=== PATIENT | male | born 1970 | race Caucasian/White ===

== ENCOUNTER 2020-02-28 15:50 | Outpatient (REF) | payer BC, SELFPAY ==
[2020-02-28 18:38] LABS: Free T4 (Free Thyroxine) 1.03 ng/dL (0.71-1.85); Prostate Specific Antigen 0.25 ng/mL (<0.05-4.0); Vitamin D 25-OH Total 23.5 ng/mL (>30)
[2020-03-06 22:12] LABS: Testosterone, Free 29.4 pg/mL (35.0-155.0); Testosterone, Total 168 ng/dL (250-1100)
== END 2020-02-28 15:51 | disposition home or self-care (01) ==
LOC: HO.MANLDS 15:50
PROVIDERS: PCP Physician Assistant; Visit Provider Physician Assistant
DX: R68.82 Decreased libido (principal)
CPT/HCPCS: 82306; 84153; 84402; 84403; 84439; 84443

== ENCOUNTER 2020-04-03 11:24 | Outpatient (REF) | payer BC, SELFPAY ==
[2020-04-08 13:22] LABS: Testosterone, Free 47.2 pg/mL (35.0-155.0); Testosterone, Total 281 ng/dL (250-1100)
== END 2020-04-03 11:25 | disposition home or self-care (01) ==
LOC: HO.MANLDS 11:24
PROVIDERS: PCP Physician Assistant; Visit Provider Physician Assistant
DX: R68.82 Decreased libido (principal)
CPT/HCPCS: 84402; 84403

== ENCOUNTER 2020-04-25 09:06 | Outpatient (REF) | payer BC, SELFPAY ==
[2020-05-02 15:22] LABS: Testosterone, Free 27.2 pg/mL (35.0-155.0); Testosterone, Total 152 ng/dL (250-1100)
== END 2020-04-25 09:07 | disposition home or self-care (01) ==
LOC: HO.MANLDS 09:06
PROVIDERS: PCP Internal Medicine; Visit Provider Physician Assistant
DX: R68.82 Decreased libido (principal)
CPT/HCPCS: 84402; 84403

== ENCOUNTER → 2022-01-08 07:49 | Outpatient (REF) | payer OTHER, SELFPAY ==
--- NOTE | 2022-01-08 07:56 | CA_ITS ---
Acquisition Time: 2022-01-08 08:08:19 Total Exercise Time: 00:11:03 Test Indications: CP Medications: SEE CHART Protocol: RYLAN Max HR: 157 BPM 93% of Pred: 168 BPM Max BP: 170/030 mmHG Max Work Load: 13.4 METS Exercise stress test with exercise 11 min 3 sec of Rylan protocol, achieving 85% MPHR, with 2/10 ache in chest at baseline which increased to 3/10 with exercise, mild to mod sob, with rare PVC, with normotensive response to exercise, with borderline ST depressions inferiorly and V3-V6 suggestive of possible ischemia. In recovery his chest ache returned to 2/10 and sob resolved. Test reviewed with Dr Martinez. Will call report to ordering provider office with recommendation for a stress echocardiogram for further evaluation. Referred By: Allison Villanueva Overread By: MANUELA GRIJALVA
== END ==
LOC: HO.CARD 07:49
PROVIDERS: PCP Internal Medicine; Visit Provider Physician Assistant
DX: R07.89 Other chest pain (principal)
CPT/HCPCS: 93017

== ENCOUNTER → 2022-01-09 13:54 | Outpatient (REF) | payer OTHER, SELFPAY ==
--- NOTE | 2022-01-09 14:00 | CA_ITS ---
Transthoracic Echocardiogram Patient (Last, First, Middle): Roland Mcfadden A Gender: Male Date of : 1970 Age: 51 Procedure Date: 01/09/2022 Procedure Type: Transthoracic Echocardiogram Location: OP Height: 190.5 cm Weight: 99.79 kg BSA: 2.29 m2 Heart Rate: 69 bpm BP: 130 / 75 mmHg Sensitometrist: MILKA Montoya MD: Allison VALLEJO Ammonia Still Operator: Bipin Diez MD Symptoms: ATYPICAL CHEST PAIN. Study Quality: Fair ECG Rhythm: Sinus Conclusions: - 1. Low normal LV systolic function with grade 1 diastolic dysfunction 2. Normal cardiac valvular Dopplers 3. No gross pericardial effusion Findings Left Ventricle Normal left ventricular cavity size. There is normal left ventricular wall thickness. The left ventricular systolic function is low normal. The visually estimated ejection fraction is between 50-55%. Spectral Doppler is indicative of an impaired relaxation filling pattern. E/E prime ratio is <8, consistent with normal filling pressures. Evidence suggests grade I (mild) diastolic dysfunction. Right Ventricle Normal right ventricular cavity size and systolic function. Atria The left atrium is normal in size. Interatrial shunt cannot be excluded. The right atrium was not well visualized. Aortic Valve The aortic valve structure and function is likely normal. There is no aortic valve stenosis. There is no aortic valve regurgitation. Mitral Valve Likely normal mitral valve structure and function. There is trace mitral valve regurgitation. There is no mitral valve stenosis. Pulmonic Valve The pulmonic valve was not well visualized. Tricuspid Valve Likely normal tricuspid valve structure and function. Tricuspid regurgitation envelope is inadequate for calculation of right ventricular systolic pressure. Normal right atrial pressure. Great Vessels The aorta was not well visualized. The pulmonary artery was not well visualized. Venous The inferior vena cava is normal in size and collapses greater than 50% with inspiration. Pericardium/Pleural There is no evidence of pericardial effusion. Prior Study Comparison No prior study available for comparison. Measurements 2D Linear Measurements IVSd: 0.96 0.6-0.9/0.6-1.0 cm LVIDd: 5.50 3.9-5.3/4.2-5.9 cm LVIDd Index: 2.40 2.4-3.2/2.2-3.1 cm/m2 LVIDs: 4.02 2.0-3.6 cm LVPWd: 0.99 0.7-1.1 cm LA Diam: 3.10 2.7-3.8/3.0-4.0 cm LAIDs Index: 1.35 1.5-2.3 cm/m2 LV Mass: 256.14 67-162/88-224 g LV Mass Index: 111.85 43-95/49-115 g/m2 LVOT Diam: 2.40 3.0+(-)1.3 cm 2D Systolic Function EF 4C: 37.20 >55% EF 2C: 61.70 >55% EF BiP: 51.10 >55% Mitral Valve MV Pk E: 0.45 MV PK A: 0.54 MV Decel Time: 298.00 E/A: 0.80 E'Lateral: 5.87 E'Medial: 6.74 E/E' Med: 6.60 E/E' Lat: 7.60 PHT: 87.00 MVA PHT: 2.53 Decel Kimble: 1.49 Aortic Valve AoV Pk Bismark: 1.22 AoV Mn Bismark: 0.88 AoV VTI: 0.24 AoV Pk Grad: 6.00 Aov Mn Grad: 4.00 TRACI Cont.VTI: 3.35 LVOT LVOT Pk Bismark: 0.87 LVOT Mn Bismark: 0.63 LVOT VTI: 0.17 LVOT Pk Grad: 3.00 LVOT Mn Grad: 2.00 LVOT Diam: 2.40 LVOT Area: 4.52 Diastolic Function MV Pk E: 0.45 MV Pk A: 0.54 E/A: 0.80 E'Medial: 6.74 E/E' Med: 6.60 E' Laterial: 5.87 E/E' Lat: 7.60 Right Ventricle TAPSE (mm): 27.50 TVS' Bismark: 11.20 Tricuspid Valve RA Press: 3.00 Great Vessels Aorta Sinus of Valsalva: 3.50 2.0-3.5 cm Ao Asc: 3.60 2.1-3.4 cm Pulmonary Valve PV Pk Bismark: 0.79 Peak PV Grad: 2.00 Updated in Other Vendor System with Status of Final Bipin Diez MD electronically signed on 01/10/2022 11:52:24 AM with status of Final
== END ==
LOC: HO.CARD 13:54
PROVIDERS: Visit Provider Physician Assistant
DX: R07.89 Other chest pain (principal)
CPT/HCPCS: 93306

== ENCOUNTER → 2022-01-29 10:49 | Outpatient (REF) | payer OTHER, SELFPAY ==
--- NOTE | 2022-01-29 10:53 | CA_ITS ---
Acquisition Time: 2022-01-29 11:24:54 Total Exercise Time: 00:10:59 Test Indications: CP Medications: SEE CHART Protocol: RYLAN Max HR: 148 BPM 88% of Pred: 168 BPM Max BP: 120/048 mmHG Max Work Load: 13.3 METS Exercise stress test with exercise 10 min 59 sec of Rylan protocol, without anginal symptoms, without arrythmia, with normotensive response to exercise, with borderline EKG changes with exercise vs artifact. Echo images obtained by tech at rest and immediate post peak exercise. Definity contrast used. Test reviewed with Dr Martinez Referred By: Allison Villanueva Overread By: MANUELA GRIJALVA
== END ==
LOC: HO.CARD 10:49
PROVIDERS: PCP Internal Medicine; Visit Provider Physician Assistant
DX: R94.39 Abnormal result of other cardiovascular function study (principal)
CPT/HCPCS: 93350; Q9957

== ENCOUNTER 2022-10-28 11:26 | Outpatient (REF) | payer OTHER, SELFPAY ==
[2022-10-28 12:41] LABS: MANUAL DIFF FLAG NO
[2022-10-28 12:47] LABS: Basophils Percent Auto 0.3 % (0-2); Hematocrit 44.5 % (42.0-52.0); Hemoglobin 14.6 g/dl (14.0-18.0); Imm Gran Abs Auto 0.05 X10*3/uL (0.00-0.03); Imm Gran Pct Auto 0.4 % (0.0-0.4); Lymphocytes Percent Auto 8.2 % (20-40); Mean Corpuscular HGB Conc 32.8 g/dl (31.0-36.0); Mean Corpuscular Hemoglobin 29.3 pg (27.0-33.0); Mean Corpuscular Volume 89.4 fL (80.0-98.0); Mean Platelet Volume 10.1 fL (9.4-12.4); Monocytes Absolute Auto 0.3 X10*3/uL (0.1-1.2); Monocytes Percent Auto 2.2 % (2-11); Neutrophils Absolute Auto 10.6 x10*3/uL (2.0-8.3); Neutrophils Percent Auto 88.9 % (45-73); Platelet Count 247 X10*3/uL (160-400); Red Blood Count 4.98 X10*6/uL (4.60-5.80); Red Cell Distribution Width 12.8 % (11.0-16.0); White Blood Count 11.9 X10*3/uL (4.8-10.8)
[2022-10-28 12:54] LABS: Estimated Average Glucose 100 mg/dL; Hemoglobin A1c % 5.1 %
[2022-10-28 13:19] LABS: Alanine Aminotransferase 38 U/L (0-40); Albumin Level 4.1 g/dL (3.5-5.0); Alkaline Phosphatase 58 U/L (39-117); Anion Gap 12 (12-20); Aspartate Amino Transferase 31 U/L (5-37); Bilirubin Total 0.5 mg/dL (0.0-1.0); Blood Urea Nitrogen 18 mg/dL (9-16); C Reactive Protein < 0.10 mg/dL (< or = 0.50); Calcium 9.6 mg/dL (8.4-10.2); Carbon Dioxide 30 mmol/L (22-29); Chloride 101 mmol/L (96-108); Estimated Glomerular Filt Rate > 60; Glucose Random 155 mg/dL (60-115); Iron 61 mcg/dL (45-160); Percent Iron Saturation 21 % (15-50); Potassium 3.9 mmol/L (3.3-5.1); Sodium 139 mmol/L (135-145); Total Iron Binding Capacity 293 mcg/dL (228-428); Total Protein 7.4 g/dL (6.5-8.0); Unsaturated Iron Binding 232 ug/dL
[2022-10-28 13:24] LABS: Erythrocyte Sedimentation Rate 3 MM/HR (0-15)
[2022-10-28 13:35] LABS: Ferritin 71 ng/mL (20-250); Vitamin D 25-OH Total 46.1 ng/mL (>30)
[2022-10-28 13:47] LABS: Folate 6.7 ng/mL (> or = 4.0); Vitamin B12 1058 pg/mL (200-900)
[2022-11-01 23:09] LABS: Spotted Fever Group IgG Not Detected (Not Detected); Spotted Fever Group IgM Not Detected (Not Detected); Typhus Fever Group IgG Not Detected (Not Detected); Typhus Fever Group IgM Not Detected (Not Detected)
== END 2022-10-28 11:27 | disposition home or self-care (01) ==
LOC: HO.MANLDS 11:26
PROVIDERS: Visit Provider Physician Assistant
DX: R53.83 Other fatigue (principal); R05.9 Cough, unspecified
CPT/HCPCS: 80053; 82306; 82607; 82728; 82746; 83036; 83540; 84439; 84443; 85025; 85652; 86140; 86618; 86666; 86753; 86757

== ENCOUNTER 2022-11-04 11:17 | Outpatient (REF) | payer OTHER, SELFPAY | END 2022-11-04 11:18 | disposition home or self-care (01) | LOC: HO.MANLNP 11:17 | PROVIDERS: Visit Provider Physician Assistant | DX: J02.8 Acute pharyngitis due to other specified organisms (principal) | CPT/HCPCS: 87070 ==

== ENCOUNTER → 2023-11-03 09:30 | Outpatient (BNV) | payer OTHER, SELFPAY | PROVIDERS: Visit Provider Clinical Nurse Specialist Psychiatric/Mental Health | DX: F33.2 Major depressive disorder, recurrent severe without psychotic features (principal); F41.1 Generalized anxiety disorder; R41.840 Attention and concentration deficit; R79.89 Other specified abnormal findings of blood chemistry | CPT/HCPCS: 90792; 99213; 99214 ==

== ENCOUNTER 2023-11-19 08:02 | Outpatient (REF) | payer OTHER, SELFPAY ==
[2023-11-19 08:42] LABS: MANUAL DIFF FLAG NO
[2023-11-19 08:55] LABS: Basophils Absolute Auto 0.1 X10*3/uL (0.0-0.2); Basophils Percent Auto 0.9 % (0-2); Eosinophils Absolute Auto 0.1 X10*3/uL (0.0-0.4); Eosinophils Percent Auto 2.1 % (0-4); Hematocrit 46.8 % (42.0-52.0); Hemoglobin 16.5 g/dl (14.0-18.0); Imm Gran Abs Auto 0.02 X10*3/uL (0.00-0.03); Imm Gran Pct Auto 0.4 % (0.0-0.4); Lymphocytes Absolute Auto 2.3 X10*3/uL (1.2-4.9); Lymphocytes Percent Auto 42.2 % (20-40); Mean Corpuscular HGB Conc 35.3 g/dl (31.0-36.0); Mean Corpuscular Hemoglobin 30.5 pg (27.0-33.0); Mean Corpuscular Volume 86.5 fL (80.0-98.0); Mean Platelet Volume 9.5 fL (9.4-12.4); Monocytes Absolute Auto 0.3 X10*3/uL (0.1-1.2); Monocytes Percent Auto 6.4 % (2-11); Neutrophils Absolute Auto 2.6 x10*3/uL (2.0-8.3); Platelet Count 178 X10*3/uL (160-400); Red Blood Count 5.41 X10*6/uL (4.60-5.80); Red Cell Distribution Width 12.4 % (11.0-16.0); White Blood Count 5.4 X10*3/uL (4.8-10.8)
[2023-11-19 09:29] LABS: Alanine Aminotransferase 27 U/L (0-40); Albumin Level 4.4 g/dL (3.5-5.0); Alkaline Phosphatase 52 U/L (39-117); Anion Gap 11 (12-20); Aspartate Amino Transferase 24 U/L (5-37); Bilirubin Total 0.6 mg/dL (0.0-1.0); Blood Urea Nitrogen 14 mg/dL (9-16); C Reactive Protein < 0.04 mg/dL (< or = 0.50); Calcium 9.6 mg/dL (8.4-10.2); Carbon Dioxide 28 mmol/L (22-29); Chloride 106 mmol/L (96-108); Cholesterol 195 mg/dL (<200); Estimated Glomerular Filt Rate > 60; Glucose Fasting 105 mg/dL (60-99); HDL Cholesterol 46 mg/dL (>40); Iron 124 mcg/dL (45-160); LDL Cholesterol Calculated 130 mg/dL (<100); Percent Iron Saturation 37 % (15-50); Sodium 141 mmol/L (135-145); Total Iron Binding Capacity 331 mcg/dL (228-428); Total Protein 7.4 g/dL (6.5-8.0); Triglycerides 98 mg/dL (<150); Unsaturated Iron Binding 207 ug/dL
[2023-11-19 09:33] LABS: Erythrocyte Sedimentation Rate 2 MM/HR (0-15)
[2023-11-19 09:37] LABS: HIV AB/AG Nonreactive (Nonreactive); HIV Num 1 0.11 S/CO (0.00-0.99)
[2023-11-19 09:45] LABS: Ferritin 34 ng/mL (20-250); Free T4 (Free Thyroxine) 0.78 ng/dL (0.71-1.85); Vitamin D 25-OH Total 34.6 ng/mL (>30)
[2023-11-19 10:37] LABS: Appearance Urine Clear; Color Urine Yellow; Glucose Urine UA Negative (Negative); Leukocyte Esterase Urine Negative (Negative); Nitrite Urine Negative (Negative); Specific Gravity - Urine <= 1.005 (1.005-1.025); Urine Blood Negative (Negative); Urine Ketones Negative (Negative); Urine Protein Negative (Neg-Trace)
--- NOTE | 2023-11-19 12:20 | ECG_ITS ---
Test Reason : qtc check Blood Pressure : / mmHG Vent. Rate : 060 BPM Atrial Rate : 060 BPM P-R Int : 160 ms QRS Dur : 100 ms QT Int : 430 ms P-R-T Axes : 063 -48 076 degrees QTc Int : 430 ms Normal sinus rhythm Left axis deviation Abnormal ECG No previous ECGs available Referred By: Krystal Mas Electronically Signed By:JELENA JEFFERY MD
[2023-11-19 12:29] LABS: Estimated Average Glucose 103 mg/dL; Hemoglobin A1c % 5.2 % (<6.0)
[2023-11-19 12:53] LABS: Parathyroid Hormone Intact 30.8 pg/mL (8.7-77.1)
[2023-11-19 13:17] LABS: Rheumatoid Factor < 13.0 IU/mL (<15.0)
[2023-11-19 14:09] LABS: Cortisol Random 16.8 ug/dL
[2023-11-19 14:36] LABS: Folate 11.6 ng/mL (> or = 4.0); Vitamin B12 668 pg/mL (200-900)
[2023-11-20 10:59] LABS: Complement C3 123 mg/dL (82-185)
[2023-11-20 14:04] LABS: IgA 165 mg/dL (47-310); IgG 1554 mg/dL (600-1640); IgM 82 mg/dL (50-300)
[2023-11-20 14:12] LABS: Follicle Stimulating Hormone 4.5 mIU/mL (1.4-12.8); Lutenizing Hormone 5.7 mIU/mL (1.5-9.3); Prolactin 11.2 ng/mL (2.0-18.0)
[2023-11-20 16:54] LABS: DHEA Sulfate 50 mcg/dL (32-279)
[2023-11-21 14:58] LABS: Calcium, Ionized 5.1 mg/dL (4.7-5.5)
[2023-11-22 10:18] LABS: Sex Hormone Binding Globulin 30 nmol/L (10-50); Triiodothyronine T3 Free 3.3 pg/mL (2.3-4.2); Triiodothyronine T3 Total 100 ng/dL (76-181)
[2023-11-24 11:28] LABS: Triiodothyronine T3 Reverse 12 ng/dL (8-25)
[2023-11-25 05:04] LABS: Adrenocorticotropic Hormone 42 pg/mL (6-50)
[2023-11-25 16:18] LABS: IGF-1 (Somatomedin C) 203 ng/mL (50-317); IGF-1 Z Score (Male) 0.9 SD (-2.0 - +2.0)
[2023-11-25 22:34] LABS: Estradiol Ultra Sensitive 16 pg/mL (< OR = 29)
[2023-11-27 06:57] LABS: Dihydrotestosterone 40 ng/dL (12-65)
[2023-11-27 11:02] LABS: Anti Nuclear Antibody Screen NEGATIVE (NEGATIVE)
[2023-11-29 23:44] LABS: Testosterone, Free 57.1 pg/mL (35.0-155.0); Testosterone, Total 405 ng/dL (250-1100)
== END 2023-11-19 08:03 | disposition home or self-care (01) ==
LOC: HO.LAB 08:02
PROVIDERS: PCP Internal Medicine; Visit Provider Psychiatry & Neurology Psychiatry
DX: F33.2 Major depressive disorder, recurrent severe without psychotic features (principal); G73.3 Myasthenic syndromes in other diseases classified elsewhere; G47.33 Obstructive sleep apnea (adult) (pediatric); D84.9 Immunodeficiency, unspecified; Z13.1 Encounter for screening for diabetes mellitus
CPT/HCPCS: 36415; 80053; 80061; 81003; 82024; 82306; 82330; 82533; 82607; 82627; 82642; 82670; 82728; 82746; 82784; 83001; 83002; 83036; 83540; 83970; 84100; 84146; 84270; 84305; 84402; 84403; 84439; 84443; 84480; 84481; 84482; 85025; 85652; 86038; 86140; 86160; 86431; 87389; 93005

== ENCOUNTER → 2023-11-19 12:20 | Outpatient (BNV) | payer OTHER, SELFPAY | PROVIDERS: PCP Internal Medicine; Visit Provider Internal Medicine Cardiovascular Disease | DX: R94.31 Abnormal electrocardiogram [ECG] [EKG] (principal) | CPT/HCPCS: 93010 ==

== ENCOUNTER 2023-11-27 09:15 | Outpatient (RCR) | payer OTHER, SELFPAY ==
[2023-11-03 11:20] VITALS: BMI 27.2
[2023-11-03 11:21] VITALS: BP 120/78; PULSE 76; TEMP 36.8
--- NOTE | 2023-11-03 12:04 | PC.ADMIT ---
Patient is a 53 year old male who was referred to [facility] by his therapist d/t increased anxiety and depression sxs. Patient feeling overwhelmed with work stress and being passed up for a promotion, supporting his father who has Alzheimer's whom he recently found placement for him. Stated he had to take care of all of the details with his fathers care and his father's home. He is currently taking leave of absence from work currently d/t his mental health. Patient reports his is not supportive. Patient is alert and oriented x4. Calm and cooperative. He presents with depressed mood and anxious affect. Denied SI. He was given a copy of his safety plan if needed. Reports drinking a glass of wine a few times a year. Denied any other substance use. Medications reconciled with patient and patient's pharmacy. He reports taking medications as prescribed.
--- NOTE | 2023-11-03 12:48 | HO.PS.ADMBH ---
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 He reports no improvement yet. denies side effects; reports stressors are high work stress, his father's dementia, and some stress with who feels overwhelmed being his only support per his report. He describes increased work stress from a job he started 3 years ago,then he started getting repeated infections such as strep and thrush. His doctor told him he needed to take a JENNIFER. When he returned he found his boss had left and he says things got more stressful then. He reports his father dx with Dementia , and he has had to help him and get him settled in a facility; although he has a brother his brother is fairly absent from the situation. pt has felt overwhelmed with the caregiver role. Pt is also on cymbalta 60mg daily, adderall 20mg tid and xanax 0.5 mg QID prn anxiety/panic. He takes b complex vitamin, omega 3 supplement, Mg+ and D3. He reports his is away with her family on vacation this week. He is home with two dogs. Pt reports passive SI but no plan and no intent to harm self; denies any past SI attempt. Past Psychiatric History: outpt tx with Dr Steve Berman; has done TMS a couple yrs ago. pt reports GERD [facility] Medical History (Updated 11/03/23 @ 13:51 by Beba Álvarez APRN) GERD (gastroesophageal reflux disease) Sleep apnea Family History: pt born in [facility] and raised by bio parents; has a younger brother who lives in [place] but is distant emotionally; Father in [place] [facility]. mother . 10 yrs ago and has one step son age 21. Social History: pt grad HS nad attended college w degree in [employer], pt on JENNIFER from work currently. Substance History: pt denies Trauma History: pt denies Diagnostics Vital Signs (24Hr): Vital Signs - 24 hr 11/03/23 11:21 Temperature 98.3 F Pulse Rate 76 Blood Pressure 120/78 BMI result Body Mass Index 27.2 Meds/Allergies Meds Home Medications ?Medication ?Instructions ?Recorded ?Confirmed ?Type alprazolam 0.5 mg tablet 0.5 mg PO QID PRN Anxiety 11/03/23 11/03/23 History dextroamphetamine-amphetamine 20 1 tab PO TID PRN attention deficit 11/03/23 11/03/23 History mg tablet duloxetine 60 mg capsule,delayed 60 mg PO QAM 11/03/23 11/03/23 History release famotidine 40 mg tablet 80 mg PO BEDTIME 11/03/23 11/03/23 History lurasidone 40 mg tablet 40 mg PO QPM 11/03/23 11/03/23 History omeprazole 20 mg capsule,delayed 20 mg PO BID 11/03/23 11/03/23 History release Allergies Allergies Allergy/AdvReac Type Severity Reaction Status Date / Time No Known Allergies Allergy Verified 11/03/23 11:20 [No Known Allergies*] Mental Status Exam Mental Status Exam Patient Appearance: Well Grooomed and Appropriate Patient Orientation: Person, Place, Time and Situation Level of Consciousness: Awake, Appropriate and Alert Patient Behavior: Appropriate and Anxious Mood Description: Sad Affect Description: Sad Patient Cognition Impaired: No Ability to Follow Directions: Good Speech Pattern: Clear, Appropriate and Soft-Spoken Memory Description: Intact Hallucinations: None Delusions: Not Present Thought Process: Intact Thought Content: positive for Intact and positive for Slowed Thinking Judgement: Fair Assessment & Plan Assessment & Plan (1) Major depressive disorder, recurrent, moderate: Status: Acute Code(s): F33.1 - Major depressive disorder, recurrent, moderate (2) SHALINI (generalized anxiety disorder): Status: Acute Code(s): F41.1 - Generalized anxiety disorder Plan admit to [facility] group therapy continue medications as is consider increase in latuda discussed lithium as adjunct to antidepressant as well Patient educated on: diagnosis, medication risk/benefits and therapeutic strategies Informed Consent: understands Reason for continued partial hosp. stay Substantial Risk for: harm to self and inability to function Certification I certify that partial hospital treatment is medically necessary due to the symptoms and problems resulting from the patient's mental illness and the failure to treat the patient at the partial hospital level of care would likely result in the patient requiring inpatient psychiatric care which could not be prevented at a less intensive level of care. Time Spent With Patient Time: Total time managing care of this patient today _60__ minutes."
--- NOTE | 2023-11-05 16:37 | HO.IOP ---
Client's case has been opened and reviewed in treatment team.
--- NOTE | 2023-11-07 11:10 | PC.NURSE ---
Per PHP staff Roland is not scheduled to attend PHP today.
--- NOTE | 2023-11-14 22:44 | HO.PHPPROGNO ---
Subjective Subjective Date of Service: 11/14/23 Reason For Visit: anxiety,depression Interim History: Patient seen for follow-up. He is participating in [facility]. Patient was seen for intake last week with covering MD. At the time he was noted to have recently started on Latuda 40 mg. He was continued on Latuda at 40 mg as well as duloxetine at 30 mg BID. He reports no improvement in symptoms today and in fact he is feeling more depressed, more demoralized and functional impairment is at an all time low. I'm stuck, I'm not sure if I'm going to get any better . He denies any suicidal thoughts, but says he does question if life is worthwhile. I've tried everything, it's hard to imagine something is going to help . He has been on multiple medication trials including numerous antidepressants as well as mood stabilizers (Prozac, Zoloft, Celexa, Wellbutrin, Remeron, Effexor, Buspar, (has been on a TCA x1, cant recall) gabapentin, Lamcital, Seroquel, Zyprexa, Abilify, Risperdal, also recently trialed on Ritalin and now Adderall for augmentation along with current trtmt on Latuda, Cymbalta, Xanax. (He is unsure about Paxil, Lexapro, no MAOs, Trintillex, Viibryd, Pristiq, other newer ADs, and denies trials of lithium, cariprazine, no FGAs, or other AEDs aside from LTG and romulo. No other nootropics or stimulant trials aside from short acting MPH and AMP). His doctor was considering ADHD as a possibility, however patient denies any history of issues with attention or focus or memory until more recent years. Reports doing well in school and had been successful at work in earlier decades. He reports having a long history of depression and anxiety, usually the depression has historically been worse, although lately he is reporting feeling lately the anxiety has been bad as well...paralyzed... very ruminative, just dealing with a lot of chronic stressful situations including marital, financial and work-related stressors as well as caregiver fatigue looking after his father who is struggling with dementia. Patient himself has been dealing with significant medical problems, chronic fatigue, with repeated bouts of severe strep throat, oropharyngeal thrush, bronchitis, flare-ups occurring about 3-4 times a year since 2021. He has been treated on many rounds of prednisone and antibiotics with delayed recovery, no cause has yet been identified for the recurrent infections. He reports a history of sleep apnea, although this does not appear to have been fully worked up as he is unclear if he has obstructive or central sleep apnea and is not currently on CPAP. He shares that he has been struggling to keep up with his many medical issues and was feeling demoralized because treaters had not been able to identify a cause for his problems. He reports being given testosterone cream was on it for 6 months until his doctor said he was fine to stop it. He reports problems with cognition and memory, says he has had discussions around these concerns with his and doctor. He has not undergone any neuropsych testing, but cognitive issues definitely worsened in past 2 years and appears to be a number of factors at play (high level of day-to-day stress, chronic life stressors, treatment-resistant depression in context of medical problems (?JUANPABLO, recurrent infections possibly underlying an inflammatory process?) he also recently underwent an endoscopy and was diagnosed with GERD. Patient is agreeable to follow up with lab work next week as well as routine EKG for medication considerations. Medication Compliance: Yes Side effects from medications: No Attending Groups: Yes Review of Systems Acute medical concerns: No Mental Status Exam Mental Status Exam Narrative: Alert, oriented, in no acute distress. Calm, cooperative, engaged. No psychomotor agitation or neurovegetative retardation. Eye contact maintained. Mood depressed, affect blunted. Speech normal, soft, without latency or dysarthria. Thought process linear, coherent. Thought content related to stressors +helpelessness, transient hopelessness, questioning life being worthwhile. Denies any suicidal thoughts, denies any intention, urge or plan to harm self. Denies any aggressive ideation or HI. No paranoia or delusional content elicited. No evidence of psychosis. Insight and judgment fair. Diagnostics Vital Signs (24Hr): BMI result Body Mass Index 27.2 Assessment & Plan Assessment & Plan (1) MDD (major depressive disorder), recurrent severe, without psychosis: Status: Acute Code(s): F33.2 - Major depressive disorder, recurrent severe without psychotic features (2) SHALINI (generalized anxiety disorder): Status: Acute Code(s): F41.1 - Generalized anxiety disorder (3) Attention and concentration deficit: Status: Acute Code(s): R41.840 - Attention and concentration deficit Assessment and Plan: Memory issues/concerns as well as s/s of ADD more noticable in past decade of life rule out MCI vs pseudodementia (depression) FH: dementia on both sides of family Patient reporting history of Sleep Apnea (unclear if JUANPABLO, CSA - not on CPAP) Plan continue IOP will seek extension of treatment at IOP consider bumping up to PHP/higher LOC given worsening symptoms/presentation start modafinil 50-100 mg qam (as ancillary to antidepressant treatment of TRD hold off Adderall 5 mg TID prn (patient difficulty with compliance given multiple dosings) increase Latuda to 60 mg qd continue duloxetine 60 mg/d (split BID) continue famotidine 80 mg qhs continue omeprazole 20 mg BID reviewed lab work from 10/2022 - low total and free testosterone, other non-specific lab abnormalities will order lab work early next week - routine lab work as well as TFTs, nutritional deficiencies, will following on endocrine labs will order EKG, routine for baseline QTc Patient given ASRS to fill out and bring back on Friday Will plan consider MoCA as well. continue to monitor Patient educated on: diagnosis and medication risk/benefits Informed Consent: understands Reason for contiued partial hosp. stay Substantial Risk for: inability to function, rapid decompensation and med/psych decompensation Certification I certify that the patient needs IOP Services for a minimum of 9 hours per week of therapeutic services. I certify the patient is experiencing symptoms of such intensity that they are unable to be safely treated in a less intensive setting and would otherwise require admission to a more intensive level of care. Total time managing care of this patient today _45___ minutes. Discharge Plan Discharge Attending provider: Krystal Mas Medications: New modafinil 100 mg tablet 100 mg PO QAM Qty: 30 0RF Continued dextroamphetamine-amphetamine 20 mg tablet 1 tab PO TID PRN (Reason: attention deficit) Patient Comments: Patient reports he takes PRN famotidine 40 mg tablet 80 mg PO BEDTIME alprazolam 0.5 mg tablet 0.5 mg PO QID PRN (Reason: Anxiety) omeprazole 20 mg capsule,delayed release(DR/EC) 20 mg PO BID duloxetine 60 mg capsule,delayed release(DR/EC) 60 mg PO QAM lurasidone 40 mg tablet 40 mg PO QPM Patient Comments: Patient stated he takes 40 mg daily not 60 mg. He stated the pharmacy got the prescription wrong. Patient advised to take with at least 350 calorie snack or with dinner. Print Language: Canadian
--- NOTE | 2023-11-17 14:53 | HO.IOP ---
Pt's discharge date has been extended until 11/21/23.
--- NOTE | 2023-11-17 19:37 | HO.PHPPROGNO ---
Subjective Subjective Date of Service: 11/17/23 Reason For Visit: anxiety,depression Interim History: Patient did not tolerate increase in Latuda to 60 mg due to feeling groggy and lethargic the next day and kind of persisted throughout the day. He tried taking a little earlier with food, but this did not help. He also notes feeling more depressed, having more catastrophic thinking. Endorses thoughts of whether life is worthwhile but says these are not new thoughts, He denies any thoughts of hurting himself or others. He is relieved to return dose back to 40 mg. He is agreeable to getting lab work done in the morning. No substance use, energy is low. Denies any sick contacts. Medication Compliance: Yes Side effects from medications: Yes (as noted above) Attending Groups: Yes Review of Systems Acute medical concerns: No Mental Status Exam Mental Status Exam Narrative: Alert, oriented, in no acute distress. Calm, cooperative, engaged. No psychomotor agitation or neurovegetative retardation. Eye contact maintained. Mood depressed, affect blunted. Speech normal, soft, without latency or dysarthria. Thought process linear, coherent. Thought content related to stressors +helpelessness, transient hopelessness, questioning life being worthwhile. Denies any suicidal thoughts, denies any intention, urge or plan to harm self. Denies any aggressive ideation or HI. No paranoia or delusional content elicited. No evidence of psychosis. Insight and judgment fair. Patient Appearance: Well Grooomed and Appropriate Patient Orientation: Person, Place, Time and Situation Level of Consciousness: Awake, Appropriate and Alert Patient Behavior: Appropriate and Anxious Mood Description: Sad Affect Description: Sad Patient Cognition Impaired: No Ability to Follow Directions: Good Speech Pattern: Clear, Appropriate and Soft-Spoken Memory Description: Intact Diagnostics Vital Signs (24Hr): BMI result Body Mass Index 27.2 Assessment & Plan Assessment & Plan (1) MDD (major depressive disorder), recurrent severe, without psychosis: Status: Acute Code(s): F33.2 - Major depressive disorder, recurrent severe without psychotic features Assessment and Plan: rule out depression due to general medical condition (2) SHALINI (generalized anxiety disorder): Status: Acute Code(s): F41.1 - Generalized anxiety disorder (3) Attention and concentration deficit: Status: Acute Code(s): R41.840 - Attention and concentration deficit Assessment and Plan: Memory issues/concerns as well as s/s of ADD more noticable in past decade of life rule out neurocognitive disorder vs pseudodementia (depression) FH: dementia on both sides of family Patient reporting history of Sleep Apnea (unclear if JUANPABLO, CSA - not on CPAP) (4) Low testosterone in male: Status: Acute Code(s): R79.89 - Other specified abnormal findings of blood chemistry Plan continue IOP continue modafinil 50-100 mg qam, titrate as tolerated(as ancillary to antidepressant treatment of TRD (holding Adderall 5 mg) return dose of Latuda to 40 mg qd q meals (pt did not tolerate 60 mg dose due to persistent fatigue/exhaustion) continue duloxetine 60 mg/d (split BID) anticipate increasing dose of duloxetine to 90 mg/d once consider mementine which patient was quite interested in given complaints of cognitive dysfunction, chronic fatigue continue regular medications - omeprazole 20 mg BID, famotidine 80 mg qhs reviewed lab work from 10/2022 - low total and free testosterone, other non-specific lab abnormalities patient agrees to get lab work done - routine lab work,TFTs, endocrine, nutritional deficiencies, will order EKG, routine for baseline QTc Patient given ASRS to fill out and bring back on Friday Will plan consider MoCA as well will consider stepping up to PHP/higher LOC given worsening symptoms/presentation continue to monitor Patient educated on: diagnosis, medication risk/benefits and medical condition Informed Consent: understands Reason for contiued partial hosp. stay Substantial Risk for: inability to function, rapid decompensation and med/psych decompensation Certification I certify that the patient needs IOP Services for a minimum of 9 hours per week of therapeutic services. I certify the patient is experiencing symptoms of such intensity that they are unable to be safely treated in a less intensive setting and would otherwise require admission to a more intensive level of care. Total time managing care of this patient today ____ minutes. Discharge Plan Discharge Attending provider: Krystal Mas Medications: New memantine 7 mg capsule,sprinkle,ER 24hr 7 mg PO BEDTIME Qty: 30 0RF cholecalciferol (vitamin D3) [Vitamin D3] 125 mcg (5,000 unit) tablet 125 mcg PO DAILY Qty: 30 0RF duloxetine 30 mg capsule,delayed release(DR/EC) 30 mg PO BEDTIME Qty: 30 0RF levothyroxine 50 mcg tablet 50 mcg PO DAILY Qty: 30 0RF memantine 14 mg capsule,sprinkle,ER 24hr 14 mg PO DAILY Qty: 30 0RF Continued dextroamphetamine-amphetamine 20 mg tablet 1 tab PO TID PRN (Reason: attention deficit) Patient Comments: Patient reports he takes PRN famotidine 40 mg tablet 80 mg PO BEDTIME alprazolam 0.5 mg tablet 0.5 mg PO QID PRN (Reason: Anxiety) omeprazole 20 mg capsule,delayed release(DR/EC) 20 mg PO BID duloxetine 60 mg capsule,delayed release(DR/EC) 60 mg PO QAM lurasidone 40 mg tablet 40 mg PO QPM Patient Comments: Patient stated he takes 40 mg daily not 60 mg. He stated the pharmacy got the prescription wrong. Patient advised to take with at least 350 calorie snack or with dinner. Changed modafinil 100 mg tablet 100 - 200 mg PO QAM Qty: 30 0RF Stand Alone Forms: Patient Portal Discharge page Patient Education: Depression (DC) Print Language: Pakistani
--- NOTE | 2023-11-18 15:32 | HO.IOP ---
Pt called out of today, reported to PHP staff he is safe and will return tomorrow after he goes to get lab work. No safety concerns.
--- NOTE | 2023-11-20 23:19 | P.PNPSP_ITS ---
Subjective Subjective Date of Service: 11/20/23 Reason For Visit: anxiety,depression Interim History: Followed up with patient. He had reported feeling more depressed earlier this week, he continues to report no change. Mood is very low, physically lethargic, having a hard time with focus, today anxiety high on account of job interview he has at 2pm, feels overhwhelmed and having difficulty with making decisions today (and in general) which has made engagement in medication decisions challenging and slow, but ultimately says he is willing to try anything . Thus far he has failed a number of antidpressant and mood stabilizing medications, (could not tolerate the increase last week in Latuda due to exacerbating his fatigue and cognitive impairment). He says he has not experienced any relief from his depression and chronic fatigue in years. Upon review, he did not notice any sanchez nges when we had stopped the Adderall last week - he had been taking 20 mg up to 3 times a day which was only exacerbating his anxiety (incr HR, worry, nervousness), but was not felt to be helping with his energy, focus or mood. His prescriber had started him on the Adderall as treatment for ADHD and for his chronic fatigue. He has been taking the modafinil at 100 mg, thus far he denies any adverse effects but is not noticing any cognitive benefit thus far. He feels there is perhaps a modest bump up in energy for an hour or 2 but then dissipates. He continues to complain of difficulty with focus, feels physically drained , tired and mentally exhausted all the time . I have no stamina...it takes all the energy I have to sit in groups and then I cant do much of anything else after . He describes slow cognitive tempo, and difficulty attending to tasks that require attention or critical thinking. I have no energy, no motivation...there's not much I enjoy anymore . He denies any thoughts of harming himself but describes having , anhedonia and feelings of helplessness and profound hopelessness. I don't think this will get better . He reports significant impairments in daily funcitoning, ADLs deplete all his energy. Feels overwhelmed with how he will function at a job. Continues to struggles with sleep due, spends hours in bed with disrupted sleep, eventually sleeping for ho urs at a time. He wakes feeling unrested, and does not recover during the day. He appears exhausted, sleepy, poor complexion, with slow movements and speech, and some paucity of thought, thought processing scattered with non-specific anxieties and says he often spirals into catastrophic thinking, which underlines him. He also complains of severe sexual dysfunction/ED, low libido, denies AM erection, or ability to get aroused. He is concerned about increasing the duloxetine as he has been concerned that medications have been causing problems with ED. He was noted to have a history of low testosterone and was offered to start treatment but says this somehow fell through. He admits he has difficulty with follow up on account of the severity of his depression and chronic fatigue. We are still waiting on his lab work, but I suspect there are underlying endocrine dysfunction and possibly immunological factors that are contributing to his presentation given worsening complaints of worsening depression, treatment-resistance, and chronic fatigue. I spoke with him later in the day to update the patient on some of the lab work findings that returned. 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 He reached out to them for assistance but by the time he got things sorted it was too late, but they are giving him another chance tomorrow afternoon which he was grateful about. We agreed to review his medications and treatment planning to address these medical problems (low functioning thyroid, hypogonadism) which are likely factors contributing to his depression. Still waiting on remaining lab work. Medication Compliance: Yes Side effects from medications: No Attending Groups: Yes Review of Systems Acute medical concerns: Yes as noted below Mental Status Exam Mental Status Exam Narrative: Alert, oriented, in no acute distress. Calm, cooperative, engaged. No psychomotor agitation or neurovegetative retardation. Eye contact maintained. Mood depressed, affect blunted. Speech normal, soft, without latency or dysarthria. Thought process linear, coherent. Thought content related to stressors +helpelessness, transient hopelessness, questioning life being worthwhile. Denies any suicidal thoughts, denies any intention, urge or plan to harm self. Denies any aggressive ideation or HI. No paranoia or delusional content elicited. No evidence of psychosis. Insight and judgment fair. Diagnostics Vital Signs (24Hr): BMI result Body Mass Index 27.2 Assessment & Plan Assessment & Plan (1) MDD (major depressive disorder), recurrent severe, without psychosis: Status: Acute Code(s): F33.2 - Major depressive disorder, recurrent severe without psychotic features (2) SHALINI (generalized anxiety disorder): Status: Acute Code(s): F41.1 - Generalized anxiety disorder (3) Attention and concentration deficit: Status: Acute Code(s): R41.840 - Attention and concentration deficit (4) Hypogonadism in male: Status: Acute Code(s): E29.1 - Testicular hypofunction Plan will seek extension of treatment at IOP vs step-up to PHP/higher LOC given worsening symptoms/presentation will increase duloxetine to 90 mg/d (split BID) start mementine 7 mg qhs for cognitive dysfunction/chronic fatigue =will hold off other medication changes until after patient has completed his job interview= will likely start levothyroxine 50 mcg as augmentation strategy for treatment- resistant depression (given borderline low T4 and TSH --> ?pituitary dysfxn, pending remaining TFTs) continue modafinil 100 mg qam (as ancillary to antidepressant treatment of TRD), will titrate as tolerated to target slow cognitive tempo/chronic fatigue/depression consider Lyrica to target pre-existing anxiety and to mitigate the potential unwanted autonomic side effects (inc HR, shakiness, somatic anxiety) of a stimulant medication (modafinil) continue Latuda 40 mg qd (pt did not tolerate 60 mg dose due to exacerbation fatigue) continue regular medications - omeprazole 20 mg BID, famotidine 80 mg qhs Reviewed lab results thus far - pt with secondary hypogonadism (low testosterone, inappropriate low/norm LH and FSH indicating possible hypothamalic/pituitary disorder) complement C4 deficiency thus far (pt with history of recurrent bacterial/viral infections (strep, thrush, bronchitis) over the past 2 years - Igs panel normal, pending SON, autoimmune lab work reviewed lab work from 10/2022 - low total and free testosterone, other non- specific lab abnormalities will remaining lab findings next week - pending remaining TFTs, ACTH, IGF-1, and remaining endocrine labwork will order EKG, routine for baseline QTc Obtain MoCA, ASRS for baseline Reviewed safety plan continue to monitor Patient educated on: diagnosis, medication risk/benefits and medical condition Informed Consent: understands Reason for contiued partial hosp. stay Substantial Risk for: inability to function, rapid decompensation and med/psych decompensation Certification I certify that partial hospital treatment is medically necessary due to the symptoms and problems resulting from the patient's mental illness and the failure to treat the patient at the partial hospital level of care would likely result in the patient requiring inpatient psychiatric care which could not be prevented at a less intensive level of care. Total time managing care of this patient today __40__ minutes. Discharge Plan Discharge Attending provider: Krystal Mas Medications: New modafinil 100 mg tablet 100 mg PO QAM Qty: 30 0RF Continued dextroamphetamine-amphetamine 20 mg tablet 1 tab PO TID PRN (Reason: attention deficit) Patient Comments: Patient reports he takes PRN famotidine 40 mg tablet 80 mg PO BEDTIME alprazolam 0.5 mg tablet 0.5 mg PO QID PRN (Reason: Anxiety) omeprazole 20 mg capsule,delayed release(DR/EC) 20 mg PO BID duloxetine 60 mg capsule,delayed release(DR/EC) 60 mg PO QAM lurasidone 40 mg tablet 40 mg PO QPM Patient Comments: Patient stated he takes 40 mg daily not 60 mg. He stated the pharmacy got the prescription wrong. Patient advised to take with at least 350 calorie snack or with dinner. Print Language: Telugu
--- NOTE | 2023-11-21 23:52 | HO.PHPPROGNO ---
Subjective Subjective Date of Service: 11/21/23 Reason For Visit: anxiety,depression Interim History: Still depressed, tired, feeling anxious about his interview today. Yesterday was a disaster...had technical difficulties, scrambling to get the interview set up but it didn't work out. Got postponed until 3 today . He has been taking 100 mg modafinil, he is not noticing a huge difference although later in our discussion mentioned he seems to have a little more energy to engage, and affect has moments of brightening and less blunted. We reviewed his lab work, his thyroid function though not technically hypothyroid, does suggest his thyroid functioning suboptimally, w low/normal T4 0.78, I suggest we could start LT4 at low dose as an augmentation strategy for depression, in addition to increasing the duloxetine to 90 mg, which he was agreeable with. His TSH seems inappropriately low given lowish T4. Similarly his LH, FSH I would have also expected them to be higher if in fact his testosterone is still low (free and total T still pending). Continued complaints around mental fog, forgetfulness, slow cognitive temp. He is eager to start memantine this evening as wel previously discussed. Medication Compliance: Yes Side effects from medications: No Attending Groups: Yes Review of Systems Acute medical concerns: No Mental Status Exam Mental Status Exam Narrative: Alert, oriented, in no acute distress. Calm, cooperative, engaged. No psychomotor agitation or neurovegetative retardation. Eye contact maintained. Mood anxious, depressed, affect less blunted. Speech normal, soft, without latency or dysarthria. Thought process linear, coherent. Thought content related to stressors some helplessness, transient hopelessness, questioning life being worthwhile. Denies any suicidal thoughts, denies any intention, urge or plan to harm self. Denies any aggressive ideation or HI. No paranoia or delusional content elicited. No evidence of psychosis. Insight and judgment fair. Patient Appearance: Well Grooomed and Appropriate Patient Orientation: Person, Place, Time and Situation Level of Consciousness: Awake, Appropriate and Alert Patient Behavior: Appropriate and Anxious Mood Description: Sad Affect Description: Sad Patient Cognition Impaired: No Ability to Follow Directions: Good Speech Pattern: Clear, Appropriate and Soft-Spoken Memory Description: Intact Diagnostics Vital Signs (24Hr): BMI result Body Mass Index 27.2 Assessment & Plan Assessment & Plan (1) MDD (major depressive disorder), recurrent severe, without psychosis: Status: Acute Code(s): F33.2 - Major depressive disorder, recurrent severe without psychotic features (2) SHALINI (generalized anxiety disorder): Status: Acute Code(s): F41.1 - Generalized anxiety disorder (3) Attention and concentration deficit: Status: Acute Code(s): R41.840 - Attention and concentration deficit (4) Chronic fatigue: Status: Acute Code(s): R53.82 - Chronic fatigue, unspecified (5) Hypogonadism in male: Status: Acute Code(s): E29.1 - Testicular hypofunction Plan extension of treatment at IOP vs step-up to PHP/higher LOC given worsening symptoms/presentation increase duloxetine to 90 mg/d (split BID) start mementine 7 mg qhs for cognitive dysfunction/chronic fatigue start levothyroxine 50 mcg as augmentation strategy for treatment-resistant depression (given borderline low T4 and TSH --> ?pituitary dysfxn, pending remaining TFTs) continue modafinil 100 mg qam (as ancillary to antidepressant treatment of TRD), will titrate as tolerated to target slow cognitive tempo/chronic fatigue/depression consider Lyrica to target pre-existing anxiety and to mitigate the potential unwanted autonomic side effects (inc HR, shakiness, somatic anxiety) of a stimulant medication (modafinil) continue Latuda 40 mg qd (pt did not tolerate 60 mg dose due to exacerbation fatigue) continue regular medications - omeprazole 20 mg BID, famotidine 80 mg qhs Reviewed lab results thus far - pt with secondary hypogonadism (low testosterone, inappropriate low/norm LH and FSH indicating possible hypothalamic/pituitary dysfxn) complement C4 deficiency thus far (pt with history of recurrent bacterial/viral infections (strep, thrush, bronchitis) over the past 2 years - Igs panel normal, pending SON, autoimmune lab work reviewed lab work from 10/2022 - low total and free testosterone, other non-specific lab abnormalities will remaining lab findings next week - pending remaining TFTs, ACTH, IGF-1, and remaining endocrine labwork will order EKG, routine for baseline QTc Obtain MoCA, ASRS for baseline Reviewed safety plan continue to monitor Patient educated on: diagnosis, medication risk/benefits and medical condition Informed Consent: understands Reason for contiued partial hosp. stay Substantial Risk for: inability to function and med/psych decompensation Certification I certify that partial hospital treatment is medically necessary due to the symptoms and problems resulting from the patient's mental illness and the failure to treat the patient at the partial hospital level of care would likely result in the patient requiring inpatient psychiatric care which could not be prevented at a less intensive level of care. Total time managing care of this patient today __30__ minutes. Discharge Plan Discharge Attending provider: Krystal Mas Medications: New modafinil 100 mg tablet 100 mg PO QAM Qty: 30 0RF memantine 7 mg capsule,sprinkle,ER 24hr 7 mg PO BEDTIME Qty: 30 0RF cholecalciferol (vitamin D3) [Vitamin D3] 125 mcg (5,000 unit) tablet 125 mcg PO DAILY Qty: 30 0RF duloxetine 30 mg capsule,delayed release(DR/EC) 30 mg PO BEDTIME Qty: 30 0RF levothyroxine 50 mcg tablet 50 mcg PO DAILY Qty: 30 0RF Continued dextroamphetamine-amphetamine 20 mg tablet 1 tab PO TID PRN (Reason: attention deficit) Patient Comments: Patient reports he takes PRN famotidine 40 mg tablet 80 mg PO BEDTIME alprazolam 0.5 mg tablet 0.5 mg PO QID PRN (Reason: Anxiety) omeprazole 20 mg capsule,delayed release(DR/EC) 20 mg PO BID duloxetine 60 mg capsule,delayed release(DR/EC) 60 mg PO QAM lurasidone 40 mg tablet 40 mg PO QPM Patient Comments: Patient stated he takes 40 mg daily not 60 mg. He stated the pharmacy got the prescription wrong. Patient advised to take with at least 350 calorie snack or with dinner. Print Language: Mosotho
--- NOTE | 2023-11-27 20:49 | P.PNPSP_ITS ---
Subjective Subjective Date of Service: 11/27/23 Reason For Visit: anxiety,depression Interim History: Patient seen for follow-up, anticipating discharge at the end of program today.? Reports no acute issues or concerns. He is tolerating the increase in Cymbalta from 60 to 90 mg/day. He did not tolerate increase in Latuda to 60 mg so that remains at 40 mg daily. He thus far is tolerating start on levothyroxine as augmentation strategy for TRD. He asks to increase dose, but for now I suggest he continues on LT4 at 50 mcg daily and see how he is feeling in a few weeks. He is also tolerating modafinil for energy, cognition and augmentation for neurovegetative depression as well as memantine for cognition, fibromyalgia. Medication compliant, medications well-tolerated. Denies any adverse effects.?He still continues with low energy, depressed mood. He has found the program to be helpful and did note a modest improvement in his symptoms. He endorses ahedonia, denies any SI or thoughts of harming self or others at this time. Denies any aggressive ideation or HI. Denies any paranoia or AH or VH. He has an upcoming appointment with his provider Oriana Berman. Medication Compliance: Yes Side effects from medications: No Attending Groups: Yes Review of Systems Acute medical concerns: No Mental Status Exam Mental Status Exam Narrative: Alert, oriented, in no acute distress. Calm, cooperative, engaged. No psychomotor agitation or neurovegetative retardation. Eye contact maintained. Mood anxious, depressed, affect less blunted. Speech normal, soft, without latency or dysarthria. Thought process linear, coherent. Thought content related to stressors some helplessness, transient hopelessness, questioning life being worthwhile. Denies any suicidal thoughts, denies any intention, urge or plan to harm self. Denies any aggressive ideation or HI. No paranoia or delusional content elicited. No evidence of psychosis. Insight and judgment fair. Diagnostics Vital Signs (24Hr): BMI result Body Mass Index 27.2 Assessment & Plan Assessment & Plan (1) MDD (major depressive disorder), recurrent severe, without psychosis: Status: Acute Code(s): F33.2 - Major depressive disorder, recurrent severe without psychotic features Assessment and Plan: Treatment resistant depression - rule out depression due to general medical condition (2) HSALINI (generalized anxiety disorder): Status: Acute Code(s): F41.1 - Generalized anxiety disorder (3) Attention and concentration deficit: Status: Acute Code(s): R41.840 - Attention and concentration deficit Assessment and Plan: Memory issues/concerns as well as s/s of ADD more noticable in past decade of life rule out neurocognitive disorder vs pseudodementia (depression) FH: dementia on both sides of family Patient reporting history of Sleep Apnea (unclear if JUANPABLO, CSA - not on CPAP) (4) Low testosterone in male: Status: Acute Code(s): R79.89 - Other specified abnormal findings of blood chemistry Plan Discharge from [facility] Continue medications at current doses: duloxetine 90 mg/d (split 60/30) modafinil 100-150 mg qam as augmentation for TRD hold off Adderall to see if modafanil better addresses energy, depression levothyroxine 50 mcg/day as augmentation for TRD memantine ER 14 mg daily lurasidone 40 mg qd w meals Refills sent to pharmacy Will defer further medication management to outpatient provider *Safety plan reviewed *Discharge diagnoses, treatment course, discharge plan have been reviewed with patient (including medication regime, medication management, potential side effects) as well as treatment rationale were also revisited *Discharge paperwork signed and given to patient, copy sent for scanning to chart Certification I certify that partial hospital treatment is medically necessary due to the symptoms and problems resulting from the patient's mental illness and the failure to treat the patient at the partial hospital level of care would likely result in the patient requiring inpatient psychiatric care which could not be prevented at a less intensive level of care. Total time managing care of this patient today ____ minutes. Discharge Plan Discharge Attending provider: Krystal Mas Medications: New memantine 7 mg capsule,sprinkle,ER 24hr 7 mg PO BEDTIME Qty: 30 0RF cholecalciferol (vitamin D3) [Vitamin D3] 125 mcg (5,000 unit) tablet 125 mcg PO DAILY Qty: 30 0RF duloxetine 30 mg capsule,delayed release(DR/EC) 30 mg PO BEDTIME Qty: 30 0RF levothyroxine 50 mcg tablet 50 mcg PO DAILY Qty: 30 0RF memantine 14 mg capsule,sprinkle,ER 24hr 14 mg PO DAILY Qty: 30 0RF Continued dextroamphetamine-amphetamine 20 mg tablet 1 tab PO TID PRN (Reason: attention deficit) Patient Comments: Patient reports he takes PRN famotidine 40 mg tablet 80 mg PO BEDTIME alprazolam 0.5 mg tablet 0.5 mg PO QID PRN (Reason: Anxiety) omeprazole 20 mg capsule,delayed release(DR/EC) 20 mg PO BID duloxetine 60 mg capsule,delayed release(DR/EC) 60 mg PO QAM lurasidone 40 mg tablet 40 mg PO QPM Patient Comments: Patient stated he takes 40 mg daily not 60 mg. He stated the pharmacy got the prescription wrong. Patient advised to take with at least 350 calorie snack or with dinner. Changed modafinil 100 mg tablet 100 - 200 mg PO QAM Qty: 30 0RF Stand Alone Forms: Patient Portal Discharge page Patient Education: Depression (DC) Print Language: Danish
== END 2023-11-27 23:59 | disposition home or self-care (01) ==
LOC: HO.IOP 09:15
PROVIDERS: Visit Provider Psychiatry & Neurology Psychiatry
DX: F33.2 Major depressive disorder, recurrent severe without psychotic features (principal); F41.1 Generalized anxiety disorder; R41.840 Attention and concentration deficit; E29.1 Testicular hypofunction; Z79.899 Other long term (current) drug therapy
CPT/HCPCS: 90791; H0015; S9480

== ENCOUNTER 2025-01-17 09:00 | Outpatient (RCR) | payer OTHER, SELFPAY ==
[2024-12-22 10:37] VITALS: BMI 28.5
[2024-12-22 10:38] VITALS: BP 120/70; PULSE 68; TEMP 36.9
--- NOTE | 2024-12-22 16:26 | PC.ADMIT ---
Patient is a 54 year old male who self referred to [facility] as suggested by his former therapist as patient has a history of treatment resistant depression. Patient has attended [facility] this past October/November 2024. Patient report he taking a leave of absence from work to work on his mental health. Patient stated, Work is very supportive, I got a new job, I had to take a pay cut but it is a better environment. I work for [employer] . Patient reports decreased energy to do things for the past few weeks. Patient reports he had to take days off from work as a result. Patient did state, I like the people I work with and the work for the most part. Patient reports he feels guilty for having to taking time off from work. One of his goals of treatment at [facility] is to improve anxiety and depression sxs and to decrease ruminating on things. Patient reports stresses include the loss of his father in August 2024 who suffered with dementia. Patient also stated his new therapist ended the relationship between them as she told him that she was not a good fit for him and this was difficult for him to hear. Patient is alert and oriented x4. He is calm and cooperative. He presented with depressed mood and anxious affect. When asked about SI patient reported having passive thoughts stating he thinks, What's is the point . Patient stated, I have read about ways even though I knew that I was not going to follow through . Patient denied having any active plans or intent to kill himself. Patient was given a copy of his safety plan if needed. Patient reports his protective factors stating, I got my dogs and and I don't want to leave them . Patient reports he was doing TMS treatments however were ineffective. Patient reports he is going to be starting [place] with Spravado in the beginning of January. Patient's medications updated with patient and patient's pharmacy. He stated he told his provider that he has not started Escitalopram in addition to telling her he does not want to be on this medication. Patient never picked up this medication per pharmacy. In addition, patient reports he is not taking Trazodone anymore as he feels like a Zombie and it is too sedating the next day. Patient has not picked up this prescription per pharmacy.
--- NOTE | 2024-12-23 10:59 | P.HPPSP_ITS ---
[facility] Date of Service: 11/03/23 Chief Complaint: anxiety,depression Sources of Information: patient interviewed, chart reviewed and crisis/core team assessment reviewed HPI Narrative: The patient is a 54 yo with treatment resistant depression admitted to [facility] for treatment-resistant depression and anxiety. My psychiatrist suggested that I seemed to be stepping backwards and that I should come to [facility] again . Complains of worsening symptoms over the past 6-7 weeks which appears to coincide with his individual therapist terminating their treatment on a background of chronic depression which was particularly provoked by the deterioration his father's health and eventual passing of his father in 08/2024. She decided to stop therapy, she said there was not much else she could do for me . Patient was admittedly surprised by this decision, as he thought they were working well together and found the therapy helpful. He had started into [facility] for TMS treatment but only completed those first 2 appointments which were broken up by acute declines in his mental health. He presently anticipates starting Spravato in 2 weeks. He endorses sometimes going on google searches (to look up topics related to suicide) knowing I'm not going to do it . He cites having a safety plan with his therapist as a strong protective factor, Past Psychiatric History: Pt reports passive SI but no plan and no intent to harm self; denies any past SI attempt.outpt tx with Dr Steve Berman; has done TMS a couple yrs ago. Previous trails: multiple medication trials including numerous antidepressants as well as mood stabilizers (Prozac, Zoloft, Celexa, Wellbutrin, Remeron, Effexor, Buspar, (has been on a TCA x1, cant recall) gabapentin, Lamcital, Seroquel, Zyprexa, Abilify, Risperdal, also recently trialed on Ritalin and now Adderall for augmentation along with current trtmt on Latuda, Cymbalta, Xanax. (He is unsure about Paxil, Lexapro, no MAOs, Trintillex, Viibryd, Pristiq, other newer ADs, and denies trials of lithium, cariprazine, no FGAs, or other AEDs aside from LTG and romulo. No other nootropics or stimulant trials aside from short acting MPH and AMP). His doctor was considering ADHD as a possibility, however patient denies any history of issues with attention or focus or memory until more recent years. Reports doing well in school and had been successful at work in earlier decades. modafinil (up to 200 mg BID) in -12/2023, ADderall, various antidepressants, mood stabilizers Last [facility] admission, he was discharged on: duloxetine 90 mg/d (split 60/30) modafinil 100-150 mg qam as augmentation for TRD levothyroxine 50 mcg/day as augmentation for TRD memantine ER 14 mg daily lurasidone 40 mg qd w meals CURRENT MEDICATIONS: Lamictal 200 mg qd alprazolam 1 mg TID prn anxiety pilocarpine 10 mg BID pt reports [facility] Medical History (Updated 12/27/24 @ 10:10 by Aditi Palacios RN) Acute recurrent streptococcal tonsillitis Atypical chest pain Chronic hoarseness Restless legs Allergic rhinitis GERD (gastroesophageal reflux disease) Sleep apnea Family History: , at home with >10 yrs and one adult step son Father recently Born in [facility] and raised by bio parents; has a younger brother who lives in [place] but is distant emotionally; Social History: pt grad HS nad attended college w degree in [place], pt on JENNIFER from work currently. Substance History: pt denies Trauma History: pt denies Diagnostics Vital Signs (24Hr): BMI result Body Mass Index 28.5 Meds/Allergies Meds Home Medications ?Medication ?Instructions ?Recorded ?Confirmed ?Type alprazolam 1 mg tablet 1 mg PO TID PRN anxiety 12/0412/22/24 History lamotrigine 200 mg tablet 200 mg PO DAILY 12/22/24 History pilocarpine HCl 5 mg tablet 10 mg PO BID 12/22/2412/04 History Allergies Allergies Allergy/AdvReac Type Severity Reaction Status Date / Time No Known Allergies (No Known Allergy Verified 11/03/23 11:20 Allergies*) Mental Status Exam Mental Status Exam Patient Appearance: Well Grooomed and Appropriate Patient Orientation: Person, Place, Time and Situation Level of Consciousness: Awake, Appropriate and Alert Patient Behavior: Appropriate and Anxious Mood Description: Sad Affect Description: Sad Patient Cognition Impaired: No Ability to Follow Directions: Good Speech Pattern: Clear, Appropriate and Soft-Spoken Memory Description: Intact Hallucinations: None Delusions: Not Present Thought Process: Intact Thought Content: positive for Intact and positive for Slowed Thinking Judgement: Fair Judgement and Insight: SI without intention urgeor plan Assessment & Plan Assessment & Plan (1) MDD (major depressive disorder), recurrent severe, without psychosis: Status: Acute Code(s): F33.2 - Major depressive disorder, recurrent severe without psychotic features (2) SHALINI (generalized anxiety disorder): Status: Acute Code(s): F41.1 - Generalized anxiety disorder (3) Major depressive disorder, recurrent, moderate: Status: Acute Code(s): F33.1 - Major depressive disorder, recurrent, moderate Plan Admit to PHP VS reviewed: afebrile, BP 120/70;?68 bpm continue regular medications for now Routine lab work as indicated EKG, routine for baseline QTc for medication considerations as indicated UDS as indicated MassPat reviewed Continue to monitor as per protocol Patient educated on: diagnosis, medication risk/benefits and therapeutic strategies Informed Consent: understands Reason for continued partial hosp. stay Substantial Risk for: harm to self, inability to function and med/psych decompensation Certification I certify that partial hospital treatment is medically necessary due to the symptoms and problems resulting from the patient's mental illness and the failure to treat the patient at the partial hospital level of care would likely result in the patient requiring inpatient psychiatric care which could not be prevented at a less intensive level of care. Time Spent With Patient Time: Total time managing care of this patient today __60__ minutes.
--- NOTE | 2024-12-24 12:39 | HO.PHP ---
When leaving group 3, Roland approached the clinician regarding questions about number 5, which is do you have any unhealthy behaviors? thoughts of SI, plan or intent? Roland asked if when we are asking about a plan, if that means they have thought about ways they can do it or that they are actively collecting items to act on there thoughts. [facility] staff member informed him it was the second one and assessed if he currently has a plan. Roland said he has no plans or intent just thoughts of SI. Roland then shared his unhealthy behavior is he receives articles that talk about near experiences and the positive feeling individuals had when they realized they were about to . Roland continued to voice he has no plans or intent just did not want to trigger group members with his unhealthy behavior around reading those articles. Roland stated he is safe for the weekend and will be here Friday.
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
--- NOTE | 2024-12-30 15:50 | HO.PHP ---
This parts data writer met with Roland after lunch to assess for safety after pt reported SI, denied a plan and denied intent but hesitated before denying a plan. Pt and parts data writer spoke at length, roughly 40 minutes, Roland stated he is safe and repeated he does not have a plan or intent but has thoughts that occur that he does not want to let go of, pt did not want to speak about the thoughts currently, as to not bring them back to mind currently but reports [facility] staff is aware. Roland reported he currently is feeling increasingly overwhelmed with thoughts and feels hopeless because he does not have a therapist, stated he is still hurt that his therapist dropped him suddenly, is hurt how she did it and felt he was just beginning to make progress with her. Roland acknowledged he has a hard time with change. Stated he also feels nervous to leave [facility], knows he will have to discharge soon and worries he won't feel better. Pt was future-oriented, stated he has been calling several practices in search of a therapist (despite a referral placed to [facility] for therapy by [facility]) and states he is interested in DBT per the suggestion of his providers. Reports he called [facility] regarding DBT and [facility] for DBT and was provided with a list of other DBT locations. States he is awaiting callbacks. Roland expressed more hope after meeting with this parts data writer. Pt was open to extending his stay at [facility] if feeling increasingly overwhelmed with negative thoughts by his discharge date. [facility] will help Roland with locating/referring to DBT.
--- NOTE | 2025-01-05 09:34 | HO.PHP ---
Cryptologist met with Roland individually due to Roland requesting to speak with staff secondary to increased anxiety, feelings of being overwhelmed and concerns regarding discharge. Roland expressed concerns about his discharge date and requested an extention. Cryptologist informed Roland that lead technical writer would follow up with the team. Roland expressed that he has been having difficulty obtaining a therapist, lead technical writer offered to place a referral to [facility] which he agreed to. Cryptologist will follow up with Roland for a COOKIE for [facility] and to place a referral for therapy with [facility].
--- NOTE | 2025-01-12 16:01 | HO.PHPPROGNO ---
Subjective Subjective Date of Service: 01/11/25 Reason For Visit: anxiety,depression Interim History: Patient was started on armodafinil at last visit (with covering provider). Patient says he had since met with his outpatient provider who stopped the medication and started him directly on selegiline. She doesn't think that was the right plan for me patient said he agreed because he wasn't feeling better. Had only been 2 days since starting on jim Nuvigil. He denied having any adverse effects. Reports feeling his head is all over the place . Continues to struggle with decisions. He has been agonizing over outpatient services. He is on a few waitlists for a therapist, and keeps wavering on which therapist to see. I've just been a wreck all week . He's thinking of TMS again although says he got worse last time he did it. Says he also saw a therapist through that place but then got cut off after 8-10 weeks. Continues with low mood, lack of interest and motivation. Ongoing SI w various plans but denies any urge or intention to act on these thoughts and is able to contract for safety if thoughts worsen. Existential rumination and talks at length about watching his father decay from ALzheimers. It's more like what's the point of being happy if we aren't going to here one day . Medication Compliance: Yes Side effects from medications: No Attending Groups: Yes Review of Systems Acute medical concerns: No Medical Review of Systems: unchanged Review of Systems: Chronis issues w/ sinus inflammation, strep, thrush. Has had multiple appts w/ ENT and GI. Mental Status Exam Mental Status Exam Patient Appearance: Well Grooomed Patient Orientation: Person, Place and Time Level of Consciousness: Alert Patient Behavior: Appropriate Mood Description: Depressed and Anxious Affect Description: Appropriate Speech Pattern: Clear Hallucinations: None Delusions: Not Present Thought Process: Goal Oriented Depressive Symptoms: Diff. Making Decisions and Low Self Esteem Judgement and Insight: Insight: fair Judgment: intact Diagnostics Vital Signs (24Hr): BMI result Body Mass Index 28.5 Assessment & Plan Assessment & Plan (1) MDD (major depressive disorder), recurrent severe, without psychosis: Status: Acute Code(s): F33.2 - Major depressive disorder, recurrent severe without psychotic features (2) SHALINI (generalized anxiety disorder): Status: Acute Code(s): F41.1 - Generalized anxiety disorder (3) Attention and concentration deficit: Status: Inactive Code(s): R41.840 - Attention and concentration deficit Plan Since patient's outpatient provider was seen in interim, and treatment plan was changed, I will defer to OP provider for ongoing medication management and avoid complicating treatment by getting involved. Pt struggles w/ chronic depression, anxiety, and difficulty w/ decision making. He endorses a current passive wish but has researched ways to commit suicide. He denies having access to the means described above, any plan to obtain the nitrogen tirado, and denies any current desire or plan to harm himself. Major protective factors currently are his dogs. He is future oriented and is open to referrals to a therapist who would be a good fit for his particular issues. I also recommended that pt consider ECT for tx resistant depression, which he will consider and discuss w/ his psychiatrist. He plans to attend the intake for [facility] next wk Patient educated on: diagnosis, medication risk/benefits, therapeutic strategies and medical condition Informed Consent: understands Reason for contiued partial hosp. stay Substantial Risk for: inability to function and med/psych decompensation Certification I certify that partial hospital treatment is medically necessary due to the symptoms and problems resulting from the patient's mental illness and the failure to treat the patient at the partial hospital level of care would likely result in the patient requiring inpatient psychiatric care which could not be prevented at a less intensive level of care. Total time managing care of this patient today _30___ minutes. Discharge Plan Discharge Attending provider: Krystal Mas Medications: No Action alprazolam 1 mg tablet 1 mg PO TID PRN (Reason: anxiety) baclofen 10 mg Tablet 10 mg PO TID PRN (Reason: muscle aches) Qty: 21 0RF alprazolam 0.5 mg Tablet 1 mg PO TID PRN (Reason: severe anxiety) Qty: 0 0RF lamotrigine 100 mg Tablet 150 mg PO MoWeFrSa@0900 Qty: 30 0RF Emsam 6 mg/24 hr Patch 24 Hour 6 mg TRANSDERMAL BEDTIME Qty: 30 0RF Stand Alone Forms: Patient Portal Discharge page Print Language: [place] Citizen
--- NOTE | 2025-01-14 14:19 | HO.PHP ---
Roland and this instructional writer spoke about a discharge date in which he was hoping and is comfortable with 01/21/25. He stated he is not going back to work until Feb 04, but he has a DBT group starting within the next couple weeks along with an OP therapist that was suggested by his psychiatrist, but he is unsure when this will take place.
--- NOTE | 2025-01-18 23:44 | PM.EVENT ---
Event Note Date of Service: 01/18/25 Time Spent With Patient Time: Total time managing care of this patient today ____ minutes.
== END 2025-01-17 23:59 | disposition home or self-care (01) ==
LOC: HO.PHPA 09:00
PROVIDERS: Visit Provider Psychiatry & Neurology Psychiatry
DX: F33.2 Major depressive disorder, recurrent severe without psychotic features (principal); F41.1 Generalized anxiety disorder; R41.840 Attention and concentration deficit; Z79.899 Other long term (current) drug therapy
CPT/HCPCS: 90791; 90853

== ENCOUNTER 2025-01-19 13:52 | Inpatient (IN) | payer OTHER, SELFPAY ==
--- NOTE | 2025-01-19 | ECG_ITS ---
Test Reason : RULE OUT PROLONG QT Blood Pressure : */* mmHG Vent. Rate : 55 BPM Atrial Rate : 55 BPM P-R Int : 174 ms QRS Dur : 104 ms QT Int : 446 ms P-R-T Axes : 65 -49 69 degrees QTcB Int : 426 ms Sinus bradycardia Left axis deviation Abnormal ECG When compared with ECG of 19-Nov-2023 12:21, No significant change was found Referred By: Shayna Cade Electronically Signed By: DAVIDSON LIGHT
[2025-01-19 14:15] VITALS: BP 131/63; PULSE 84; RESP 16; TEMP 36.1; O2SAT 97; BMI 20.3
--- NOTE | 2025-01-19 14:20 | ED.GENADULT ---
HPI - General Adult General Chief complaint: Psychiatric Symptoms Stated complaint: crisis Time Seen by Provider: 01/19/25 14:46 Source: patient Mode of arrival: ambulatory Limitations: no limitations History of Present Illness ED Provider: Shayna Cade PA-C HPI narrative: Patient is a 54 year old assigned male at with a history of SHALINI, ADD, and MDD presenting to the emergency department today with depression, anxiety, and feeling suicidal. Patient states that he has had increased depression, anxiety, and feeling suicidal. Patient denies any other complaints at this time. Related Data Home Medications ?Medication ?Instructions ?Recorded ?Confirmed alprazolam 1 mg tablet 1 mg PO TID PRN anxiety 12/22/24 01/19/25 lamotrigine 200 mg tablet 200 mg PO DAILY 12/22/24 01/19/25 selegiline 6 mg/24 hr transdermal 6 mg transdermal DAILY 01/10/25 01/19/25 24 hour patch (Emsam) Allergies Allergy/AdvReac Type Severity Reaction Status Date / Time No Known Allergies (No Known Allergy Verified 01/19/25 14:21 Allergies*) Review of Systems Constitutional: Constitutional: Reports as per HPI Eyes: Eyes: Reports as per HPI ENT: Reports as per HPI Cardiovascular: Cardiovascular: Reports as per HPI Respiratory: Respiratory: Reports as per HPI Gastrointestinal: Gastrointestinal: Reports as per HPI Genitourinary: Genitourinary: Reports as per HPI Musculoskeletal: Musculoskeletal: Reports as per HPI Integumentary/Breasts: Skin/Breast: Reports as per HPI Neurologic: Reports as per HPI Psychiatric: Psychiatric: Reports as per HPI Endocrine: Endocrine: Reports as per HPI Hematologic/Lymphatic: Hematologic/Lymphatic: Reports as per HPI Allergic/Immunologic: Allergic/Immunologic: Reports as per HPI [facility] Past Medical History Attestation statement: The following information was validated with the patient. Source: old records reviewed and nursing notes reviewed Medical History Acute recurrent streptococcal tonsillitis Atypical chest pain Chronic hoarseness Restless legs Allergic rhinitis GERD (gastroesophageal reflux disease) Sleep apnea Social History Social History Household Members: Spouse and Other Household Members Other:: 2 dogs step son when not in College Comment: DC TBD Patient Tobacco Use Status: Former Tobacco user Tobacco use type: Cigarette Smoked in Last 30 Days: No Use of substances other than those prescribed or required for medical reasons: No Advance Directives: No Advance Directives Information Provided: No service: No Sexual orientation: Straight/Heterosexual Physical Exam ED Vital Signs: Vital Signs - 24 hr 01/19/25 18:12 01/20/25 05:31 01/20/25 06:00 Temperature 97.8 F 98.2 F Pulse Rate 63 72 72 Respiratory Rate 16 17 Blood Pressure 144/74 H 118/74 Pulse Oximetry 98 100 Oxygen Delivery Method Room Air Room Air 01/20/25 11:21 Temperature 97.0 F Pulse Rate 63 Respiratory Rate 12 Blood Pressure 118/70 Pulse Oximetry 100 Oxygen Delivery Method Room Air BMI result Body Mass Index 20.3 Const General: cooperative, no acute distress, alert and awake Nutritional Appearance: well nourished Orientation/consciousness: patient oriented x3 HENMT Head: Yes normal to inspection and Yes atraumatic Ears: hearing grossly normal bilaterally and external ears normal General nose exam: Normal external nose present, no nasal discharge noted and no epistaxis Face and sinus: Yes normal facial exam, No abrasion and No laceration Mouth: Normal oral and palatal mucosa present, no drooling and no muffled voice Eyes General: appearance normal, both eyes and all related structures Periorbital: periorbital findings normal Eyelids: Yes eyelids normal Conjunctivae: conjunctivae normal Pupils: Equal, round and reactive pupils present EOM: EOMs intact bilaterally Neck Neck: Yes normal visual inspection and Yes full ROM Resp Effort & Inspection: normal respiratory effort and able to speak in complete sentences Neuro General: patient oriented x3, moves all extremities and CN's II-XI intact bilaterally Cranial nerves: Yes Equal, round and reactive pupils present Cognition (Neuro): normal cognition Extrem General: Yes normal to inspection, Yes full ROM and Yes capillary refill normal Psych Appearance: grossly normal Mental Status: mental status grossly normal Affect: Sad affect present Thought content: Suicidality present Course Course Course Narrative: RME: 54-year-old male presents to the ED for depression and suicidal ideation. Patient was sent by a psychiatrist for ECT. Labs ordered. Reevaluation(s) Reevaluation #1: Time: 06:13 Date: 01/20/25 Provider: Deb Flores, DO Patient in physician observation for psychiatric evaluation.? No acute events reported overnight. No current complaints. VS stable.? Pending CARE team evaluation. Will continue to monitor. Medications Administered Generic Name Dose Route Start Last Admin Trade Name Harriett PRN Reason Stop Dose Admin Alprazolam 1 mg 01/19/25 21:00 01/20/25 08:43 Alprazolam 0.5 Mg Tablet PO Not Given TID FLAVIO Lamotrigine 200 mg 01/20/25 09:00 01/20/25 08:12 Lamotrigine 100 Mg Tablet PO 200 mg DAILY FLAVIO Administration Patient Own ( 6 mg 01/19/25 21:00 01/19/25 21:49 Selegiline [Emsam] 6 TRANSDERMA 6 mg Mg/24 Hr Patch 24 BEDTIME FLAVIO Administration Hour) Medical Decision Making Medical Decision Making [facility] Narrative: Patient is a 54 year old assigned male at with a history of SHALINI, ADD, and MDD presenting to the emergency department today with depression, anxiety, and feeling suicidal. Patient's physical exam was as noted in the physical exam portion of this note.. Patient's blood work was unremarkable. I explained my physical exam findings as well as all test results to the patient. I answered all questions asked by the patient. Patient placed in observation at 1539 pending CARE team evaluation. Patient's disposition will be determined after CARE team evaluation. Differential Diagnosis Differential Diagnoses: The differential diagnosis associated with the presentation includes Suicidal Depression Admission/Observation Consideration of admission/observation: Escalation of care including admission/observation considered Patient's disposition will be determined after CARE team evaluation. Lab Data [facility] Lab Attestation statement: I reviewed the patient's lab results. My interpretation of these results are in the MDM Rationale portion of this note. 01/19/25 14:56 01/19/25 14:56 Labs: Lab Results 01/19/25 01/19/25 Range/Units 14:56 15:03 WBC 6.6 (4.8-10.8) X10*3/uL RBC 5.19 (4.60-5.80) X10*6/uL Hgb 15.6 (14.0-18.0) g/dl Hct 44.6 (42.0-52.0) % MCV 85.9 (80.0-98.0) fL MCH 30.1 (27.0-33.0) pg MCHC 35.0 (31.0-36.0) g/dl RDW 12.4 (11.0-16.0) % Plt Count 191 (160-400) X10*3/uL MPV 9.5 (9.4-12.4) fL Immature Gran % (Auto) 0.5 H (0.0-0.4) % Neut % (Auto) 56.4 (45-73) % Lymph % (Auto) 35.3 (20-40) % [place] % (Auto) 6.2 (2-11) % Eos % (Auto) 1.1 (0-4) % Baso % (Auto) 0.5 (0-2) % Lymph # (Auto) 2.3 (1.2-4.9) X10*3/uL [place] # (Auto) 0.4 (0.1-1.2) X10*3/uL Eos # (Auto) 0.1 (0.0-0.4) X10*3/uL Baso # (Auto) 0.0 (0.0-0.2) X10*3/uL Abs Immat Gran (auto) 0.03 (0.00-0.03) X10*3/uL Absolute Neuts (auto) 3.7 (2.0-8.3) x10*3/uL Absolute Nucleated RBC 0.000 (0.0-0.012) X10*3/uL Nucleated RBC % (auto) 0.0 (0.0-0.2) /100WBC Sodium 142 (135-145) mmol/L Potassium 3.8 (3.3-5.1) mmol/L Chloride 108 (96-108) mmol/L Carbon Dioxide 26 (22-29) mmol/L Anion Gap 12 (12-20) BUN 16 (9-16) mg/dL Creatinine 1.21 (0.5-1.4) mg/dL Estim Creat Clear Calc 66.3 Estimated GFR > 60 Random Glucose 127 H (60-115) mg/dL Calcium 9.1 (8.4-10.2) mg/dL Total Bilirubin 0.5 (0.0-1.0) mg/dL AST 30 (5-37) U/L ALT 33 (0-40) U/L Alkaline Phosphatase 45 (39-117) U/L Total Protein 7.3 (6.5-8.0) g/dL Albumin 4.5 (3.5-5.0) g/dL Urine Color Yellow Urine Appearance Clear Urine pH 6.5 (5.0-9.0) Ur Specific [place] 1.010 (1.005-1.025) Urine Protein Negative (Neg-Trace) mg/dL Urine Glucose (UA) Negative (Negative) mg/dL Urine Ketones Negative (Negative) mg/dL Urine Blood Negative (Negative) Urine Nitrite Negative (Negative) Ur Leukocyte Esterase Negative (Negative) Urine Opiates Screen Not Detected (Not Detect) Ur Buprenorphine Scrn Not Detected (Not Detect) ng/mL Ur Oxycodone Screen Not Detected (Not Detect) ng/mL Urine Methadone Screen Not Detected (Not Detect) ng/mL Urine Fentanyl Screen Not Detected (Not Detect) Ur Barbiturates Screen Not Detected (Not Detect) Ur Phencyclidine Scrn Not Detected (Not Detect) Ur Amphetamines Screen Not Detected (Not Detect) U Benzodiazepines Scrn POSITIVE H (Not Detect) Urine Cocaine Screen Not Detected (Not Detect) U Marijuana (THC) Screen Not Detected (Not Detect) Ethyl Alcohol < 10 mg/dL Discharge Plan Discharge Clinical Impression: Depression Qualifiers: Depression Type: unspecified Qualified Code(s): F32.A - Depression, unspecified Patient Disposition: Admitted As Inpatient Interventions: [place]-Suicide Risk Severity Scale Last Done: 01/20/25 14:21 Admission Worksheet (ED) Last Done: 01/20/25 14:22 Discharge Date/Time: 01/20/25 14:46
[2025-01-19 15:02] LABS: MANUAL DIFF FLAG NO
[2025-01-19 15:04] LABS: Hematocrit 44.6 % (42.0-52.0); Hemoglobin 15.6 g/dl (14.0-18.0); Imm Gran Abs Auto 0.03 X10*3/uL (0.00-0.03); Imm Gran Pct Auto 0.5 % (0.0-0.4); Lymphocytes Absolute Auto 2.3 X10*3/uL (1.2-4.9); Mean Corpuscular HGB Conc 35.0 g/dl (31.0-36.0); Mean Corpuscular Hemoglobin 30.1 pg (27.0-33.0); Mean Corpuscular Volume 85.9 fL (80.0-98.0); NRBC Abs Auto 0.000 X10*3/uL (0.0-0.012); NRBC Pct Auto 0.0 /100WBC (0.0-0.2); Platelet Count 191 X10*3/uL (160-400); Red Blood Count 5.19 X10*6/uL (4.60-5.80); White Blood Count 6.6 X10*3/uL (4.8-10.8)
[2025-01-19 15:22] LABS: Appearance Urine Clear; Glucose Urine UA Negative (Negative); PH 6.5 (5.0-9.0); Specific Gravity - Urine 1.010 (1.005-1.025)
[2025-01-19 15:27] LABS: Alanine Aminotransferase 33 U/L (0-40); Albumin Level 4.5 g/dL (3.5-5.0); Alkaline Phosphatase 45 U/L (39-117); Anion Gap 12 (12-20); Aspartate Amino Transferase 30 U/L (5-37); Blood Urea Nitrogen 16 mg/dL (9-16); Calcium 9.1 mg/dL (8.4-10.2); Carbon Dioxide 26 mmol/L (22-29); Chloride 108 mmol/L (96-108); Creatinine Clr Calc Pharmacy 66.3; Estimated Glomerular Filt Rate > 60; Potassium 3.8 mmol/L (3.3-5.1); Sodium 142 mmol/L (135-145); Total Protein 7.3 g/dL (6.5-8.0)
[2025-01-19 15:35] LABS: Cannabinoid Screen Urine Not Detected (Not Detect)
[2025-01-19 18:12] VITALS: BP 144/74; PULSE 63; RESP 16; TEMP 36.6; O2SAT 98
--- OUTSIDE RECORDS SUMMARY | 2025-01-19 18:25 | XMS_ITS | Encounter Summary ---
Author Organization [facility] Address [address] [facility] [address] [place] [phone] Phone Care Team Providers Care Digital Coordinator Name Role Phone Fabiolatoyin Sanjiv Nazario DO Unavailable Anjelica Pritchard SENIOR PATROL AGENT Unavailable [phone] Roland Ibrahim MD Unavailable [phone] Leeann Montana MD Unavailable [phone] Padmaja Puentes SENIOR PATROL AGENT Unavailable Bigda, Sanjiv A DO Primary Care Provider [phone] Bigda, Sanjiv A DO Unavailable Bigda, Sanjiv A DO Unavailable Bigda, Sanjiv A DO Primary Care Provider [phone] Encounter Details Date Type Department Care Team (Late st Contact Info) Description 11/12/2019 Procedure Pass [facility], [address] [address] Social History Tobacco Use Types Packs/Day Years Used Date Smoking Tobacco: Former Cigarettes Q uit: 2000 Smokeless Tobacco: Never Alcohol Use Standard Drinks/Week Comments Not Currently 0 (1 standard drink = 0.6 oz pur e alcohol) Sex and Gender Information Value Date Recorded Sex Assigned at Male 05/12/2017 9:38 AM EST Legal Sex Male 9:36 PM EDT Gender Identity Male 05/12/2017 9:38 AM EST Sexual Orientation Straight 05/12/2017 9: 38 AM EST documented as of this encounter Plan of Treatment Not on file documented as of this encounter Visit Diagnoses Not on filedocumented in this encounter Additional Health Concerns Infection Onset Date Last Indicated Resolved Time CoV-Presumed 07/07/2020 07/07/2020 07/27/2020 1:24 AM EDT CoV-Risk 05/10/2023 05/10/2023 05/21/2023 1:22 AM EST documented as of this encounter Care Teams Digital Coordinator Relationship Specialty Start Date End Date Sanjiv Del Real DO [address] [place] [id number] PCP - General Internal Medicine 04/20/17 10/06/24 Sanjiv Del Real DO [address] [place] [address] PCP - General Internal Medicine 10/07/24 Sanjiv Del Real DO [address] [place] [address] Historical LMR Provider 02/22/17 05/12/21 Anjelica Pritchard NP [address] [place] [phone] [email or web address] Historical LMR Provider 02/22/17 2 Roland Ibrahim MD [address] [place] [phone] Historical LMR Provider 02/22/17 05/12/21 Leeann Montana MD [address] [place] [address] Orthoped[facility] Medicine, [place] [address] Historical LMR Provider 02/22/17 Padmaja Puentes NP [address] [place] [phone] Historical LMR Provider 02/22/17 2 Sanjiv Del Real DO [address] [place] [address] Insurance Assigned Provider 09/05/18 11/11/20 Sanjiv Del Real DO [address] [place] [address] Insurance Assigned Provider 05/10/24 01/08/25 documented as of this encounter Additional Source Comments The information contained in this document represents components of the legal health record. It is not the complete legal health record.[facility]
--- OUTSIDE RECORDS SUMMARY | 2025-01-19 18:25 | XMS_ITS | Clinical Summary ---
Author Organization [facility] Address [address] [address] [place] [address] Phone Care Team Providers Care Rocket Assembly Operator Name Role Phone Sanjiv Del Real Primary Care Provider [phone] Allergies No known active allergies Medications zinc 50 mg Tab tablet Take 50 mg by mouth daily. Active cholecalciferol (VITAMIN D3) 3,000 unit tablet Take 3,000 Units by mouth daily. Active calcium carbonate (CALCIUM 600 ORAL) Take by mouth. Activ e ALPRAZolam (XANAX) 0.5 MG tablet Active dextroamphetami ne-amphetamine (ADDERALL) 20 mg Tab tablet Take 20 mg by mouth 2 (two) times a day. 1 Active magnesium oxide 250 mg (150 mg elemental) Tab Take 250 mg by mouth daily. Active DULoxetine (CYMBALTA) 20 MG capsule 60 mg. Active nystatin (MYCOSTATIN) 100,000 units/mL suspension TAKE 5 ML BY MOUTH FOUR TIMES A DAY DIRECTED FOR 14 DAYS Active omeprazole (PRILOSEC) 40 MG capsule TAKE ONE CAPSULE BY MOUTH EVERY DAY BEFORE MEALS 4 Active terbinafine HCL (LAMISIL) 250 mg tablet TAKE 1 TABLET BY MOUTH ONCE DAILY FOR 42 DAYS 4 Active fluconazole (DIFLUCAN) 100 MG tabletIndicatio ns:Thrush Take 2 tabs by mouth on day 1 of treatment; take 1 tab by mouth on days 2-14 of treatment 15 tablet 4 Active Active Problems Problem Noted Date Diagnosed Date Thrush 07/11/2023 Assessment & Plan (07/11/2023 12:02 PM EST): Pt does have a thick white coating of his tongue at today's visit. Reviewed testing showing Yen albicans susceptible to fluconazole. We will try a longer course of treatment with a loading dose (to take 200mg by mouth on day one of treatment and then 100mg by mouth daily for days 2-14 of treatment). I wonder if his continued use of an intranasal steroid may be a contributing factor and I have asked him to discontinue this medication for the time being. If symptoms do not respond to fluconazole, then I think there could an alternative etiology at play such as Sjogren's syndrome. Dry mouth 07/11/2023 Assessment & Plan (07/11/2023 12:02 PM EST): Please see treatment plan above for treatment. I think that pt's stress level is also a contributing factor to his symptoms and discussed methods for stress reduction including talk therapy and acupuncture. Chronic cough 06/20/2023 Assessment & Plan (07/02/2023 8:45 AM EST): Patient presenting with relatively sporadic cough which is difficult to actually label his chronic cough. He really has no other clear respiratory symptoms. I do feel that a good majority of his symptoms are being driven or at least exacerbated by his underlying stress anxiety and mental health issues. I do feel that he probably does have a component of post nasal drip and he has reported on and off nasal congestion and sinus tenderness. There is also a possibility that he has underlying reflux disease and it appears that he has been taking omeprazole 40 mg p.o. daily but not clear that he is following an antireflux diet or lifestyle changes and he is not sure that this is providing any benefit. He does describe what I think the ENT did find which was laryngeal pharyngeal reflux however this finding can be seen in patients with coughing and posterior pharyngeal irritation from a multitude of causes. 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 He has not been cultured when he is feeling well. 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 Discussed that this is common in adults and that a viral upper respiratory tract infection with sore throat is often confused with beta hemolytic strep in carriers. If he is not a carrier, consider ordering sensitivities with any strep cultures in the future. Pt may follow-up with ID as needed. Encouraged to keep upcoming appointments with pulmonology and cardiology for chest pain work-up. Chest pain 02/20/2022 Assessment & Plan (02/20/2022 6:19 PM EDT): Patient has history of chest pain for a long time now. He had a regular ETT followed by echo stress which was negative. Patient continues to have chest pain. At this point we discussed the role of nuclear stress test versus angiogram. I told him most likely the stress echo has ruled out presence of coronary artery disease with high accuracy. She continues to have chest pain he is wondering what else we can do we decided to go ahead and do a nuclear stress test. I discussed role of angiography and possible risks from this angiography and he would like to avoid it now Dyslipidemia (high LDL; low HDL) 02/20/2022 Assessment & Plan (02/20/2022 6:20 PM EDT): LDL is elevated at 111. He should be on a low-cholesterol diet and he should repeat his lipid in 3 months with Malaise and fatigue 02/20/2022 Impaired fasting glucose 12/11/2021 Assessment & Plan (12/11/2021 10:32 AM EDT): Fasting glucose 113 mg/dL I do not have any other glucose levels because he mostly gets lab work done at [facility] so I am going to obtain a basic metabolic panel for both electrolytes and glucose levels and I will obtain hemoglobin A1c. Restless legs 11/16/2021 Chronic fatigue 08/28/2021 Assessment & Plan (02/20/2022 6:21 PM EDT): Has history of chronic fatigue his PCP is working with him and found low cortisol. I will defer this problem for the time being to the PCP he does not have any cardiomyopathy EF is normal and he has no valvular heart disease Assessment & Plan (12/11/2021 10:31 AM EDT): I did not find any etiology for fatigue other than low cortisol levels which I think is because he woke up at 5 AM and had the lab work close to 3 hours later. He does not have hypoglycemia in fact his glucose is elevated does not have any electrolyte abnormalities or hypotension. I will repeat the cortisol level he needs to get it done sooner to his waking. Again he must be done fasting. Assessment & Plan (08/28/2021 8:56 AM EDT): Checking for endocrine etiologies of fatigue. He should do the lab work again fasting first thing in the morning. Low testosterone in male 01/12/2021 Assessment & Plan (12/11/2021 10:31 AM EDT): Testosterone levels in the normal reference range LH increasing he does not require testosterone no further work-up. Assessment & Plan (08/28/2021 8:56 AM EDT): He is off testosterone states that he feels more or less fine other than the fatigue I do not think that he needs testosterone but I would like to check the bioavailable level again in 3 months time just to make sure that he is doing well and also luteinizing hormone. Assessment & Plan (05/23/2021 10:22 AM EST): The patient is on AndroGel 40 mg but the bioavailable testosterone is above the reference range. Furthermore he has not had any benefits with the use of testosterone. His libido is about the same. He does have morning erections he does not have erectile dysfunction. And testosterone is not a therapy for erectile dysfunction in any case. If he continues to feel fatigue is not because of lack of testosterone. At this point I asked him to decrease the AndroGel to 20 mg. Initially I plan for him to just repeat the lab work again in 3 months. But he feels that he will try AndroGel 20 mg for 6 weeks and if he feels fine that he will just stop at 6 weeks and if he is feeling well he will hold off AndroGel altogether and repeat lab work prior to the follow-up visit in 3 months. That is fine as long as he feels okay. Of course then I would like to know what his luteinizing level is and what the bioavailable testosterone levels are. Assessment & Plan (02/20/2021 12:51 PM EDT): Bioavailable testosterone is over 2 times the upper limit of normal on 60 mg of testosterone. Please decrease to 40 mg and repeat levels in 3 months time. Remember to do the lab work fasting. Assessment & Plan (01/12/2021 12:14 PM EDT): This is a patient that apparently was found to have low testosterone levels. It is unclear what his free testosterone levels were. He was placed on testosterone therapy but again it is unclear if he had endocrine work-up to determine the etiology of hypogonadism. Based on what I determine and what is indicated in the HPI is that he was not on any medications that would result in hypogonadism. He did not have an MRI of the pituitary gland to determine if he had pituitary tumors. It is unclear if gonadotropin levels were deficient. So it is difficult to establish a diagnosis of hypogonadism all to determine the etiology of hypogonadism once the patient has been placed on testosterone. If any work-up was done it was not sent to me with the consultation request. So at this point what I would like to do is check testosterone levels gonadotropin levels and prolactin level. He is taking Abilify that can result in either low or elevated prolactin levels. Technically it does not cause hypogonadism but if the prolactin level is high enough it could potentially result in hypogonadism. At this point I am not sure how to proceed in terms of management because he is using 3 packets of 4 packets of AndroGel and again this also does not make much sense. This is a high quantity of testosterone. Unclear why he has not been switched over to IM testosterone therapy. I will also check lipid panel, CBC, PSA levels. HLA B27 (HLA B27 positive) 05/21/2019 Assessment & Plan (05/22/2019 10:37 AM EST): I have spent several minutes with Roland explaining the meaning of positive HLA-B27 antigen. Although it is present in about 7-9% of general population it is frequently associated with ankylosing spondylitis versus Safia's syndrome and less likely psoriatic arthritis. I did not find Roland based on his history, exam today and available lab and x- rays that we personally reviewed together with signs and symptoms suggestive for ankylosing spondylitis at this time. Although his symptoms started in his 20s with the muscle spasm he did not suffer from inflammatory lower back pain, he did not have ocular, GI or infections. His symptoms are worsening particularly over the last year rather than as in majority of patients with ankylosing spondylitis symptoms develop well before 4th decade of life. His labs are entirely normal. X-rays do not show features suggestive of ankylosing spondylitis. His exam is negative for findings consistent with ankylosing spondylitis: Normal occiput to wall distance, normal check expansion , normal lower back extensibility in modified Ramiro's test. He has increased chin to chest distance and mildly increased finger to floor distance that are suggestive of degenerative arthritis rather than ankylosing spondylitis. I have reassured Roland that I am not finding signs of ankylosing spondylitis at this time however I cannot promise that he will not develop less frequently associated systemic rheumatic disease(s) such as Safia's syndrome or psoriatic arthritis versus other undifferentiated spondyloarthropathy at some point in the future. Best way to reduce/avoid development of any of those is to continue gentle, regular exercise routine, avoid sick contacts and treat any illnesses promptly, keep up-to-date with age-appropriate screenings and preventive strategies, avoid falls and injuries. Chronic neck pain 05/21/2019 Assessment & Plan (05/22/2019 10:40 AM EST): Proper posture and neck support during night sleep. Ergonomic alignment of his work desk and home project tools/equipment. Warm packs versus warm shower prior to gentle, regular ROM, stretching and muscle strengthening exercises. Consider formal chiropractic versus PT utilizing gentle massage, traction and therapeutic ultrasound with iontophoresis and/ or acupuncture. Chronic midline low back pain without sciatica 0 05/21/2019 Assessment & Plan (05/22/2019 10:42 AM EST): Gentle, regular core muscle strengthening exercises after warm pack or warm shower. Keep body weight in ideal range for his height. Avoid falls, injuries, stooping, bending, heavy lifting and sudden turns. Joint protection, energy conservation. He may benefit from topical cream such as Arnica, Biofreeze, Aspercreme versus medicated patches such as salonpas, icy hot patch 2-3 times daily and if necessary at bedtime x 3 weeks. Pain of both hip joints 05/21/2019 Assessment & Plan (05/22/2019 10:23 AM EST): Joint protection, energy conservation techniques and the gentle, regular exercise routine as educated by PT. Continue gentle, regular yoga particularly if interested in warm yoga type. Warm pool therapy would be of additional benefit. If pain localized within the soft tissues easily accessible from outside use topical cream such as Arnica, Biofreeze, Aspercreme versus medicated patches such as salonpas, icy hot patch 2-3 times daily and if necessary at bedtime x 3 weeks. Recurrent major depressive disorder, in partial remission 05/21/2019 Assessment & Plan (05/22/2019 10:19 AM EST): Continue current medication regimen combined with regular relaxation/meditation, positive imagery and if needed personal psychotherapy. Keep regular engagement in hobbies/favorite activities. Obstructive sleep apnea syndrome 12/22/2018 Anxiety 12/22/2018 Family History Medical History Relation Comments No Known Problems Father Alzheimer's disease Mother Relation Status Comments Father Alive Mother Social History Tobacco Use Types Packs/Day Years Used Date Smoking Tobacco: Former Cigarettes Q uit: 2000 Smokeless Tobacco: Never Tobacco Cessation:Counseling Given: Not Answered Alcohol Use Standard Drinks/Week Comments Not Currently 0 (1 standard drink = 0.6 oz pur e alcohol) Education Answer Date Recorded Are you interested in more education? Not on gustavo e 08/30/2022 Are you concerned about learning? Not on file 08/30/2022 No 08/30/2022 No 08/30/2022 Digital Access Answer Date Recorded No 09/28/2022 No 09/28/2022 Reliable internet access at home? Not on file 09/28/2022 Device with a working camera? Not on file Sex and Gender Information Value Date Recorded Sex Assigned at Male 05/12/2017 9:38 AM EST Legal Sex Male 9:36 PM EDT Gender Identity Male 05/12/2017 9:38 AM EST Sexual Orientation Straight 05/12/2017 9: 38 AM EST Last Filed Vital Signs Vital Sign Reading Time Taken Comments Blood Pressure 126/60 07/11/2023 11:21 AM EST Pulse 90 07/11/2023 11:21 AM EST Temperature 37.1 C (98.8 F) 06/25/2023 2:00 PM EST Respiratory Rate 18 05/10/2023 10:4 9 AM EST Oxygen Saturation 98% 07/11/2023 11: 21 AM EST Inhaled Oxygen Concentration - - Weight 100.3 kg (221 lb 3.2 oz) 024 11:21 AM EST Height 190.5 cm (6' 3 ) 06/20/2023 10:1 0 AM EST Body Mass Index 27.65 06/20/2023 10:10 AM EST Plan of Treatment Health Maintenance Due Date Last Done Comments Adult Td,Tdap Booster 1969 DEPRESSION SCREENING 1981 SMOKING Hx and SMOKELESS TOBACCO SCREENING 1982 HEPATITIS C SCREENING 1987 HIV ONE-TIME SCREENING (18-65 YEARS) 1987 COLOGUARD 2014 COLONOSCOPY 2014 COLORECTAL CANCER SCREENING 2014 FIT TEST 2014 FOBT 2014 SIGMOIDOSCOPY 2014 VIRTUAL COLONOSCOPY 2014 PNEUMOCOCCAL VACCINES (50+ years) (1 of 1 - PCV) 2019 ZOSTER VACCINES (1 of 2) 2019 SCREENING FOR DIABETES 11/27/2024 11/27/2021 INFLUENZA VACCINE (#1) 2024 03/05/2022 COVID-19 VACCINE ( season) 2025 04/06/2022, 04/20/2021, 09/26/2020, Additional history exists LIPID PANEL 08/21/2026 08/21/2021, 01/16/2021 HEPATITIS A VACCINES Aged Out No long er eligible based on patient's age to complete this topic HIB VACCINES Aged Out No longer eligi ble based on patient's age to complete this topic MENINGOCOCCAL VACCINES (ACWY) Aged Out No longer eligible based on patient's age to complete this topic MENINGOCOCCAL VACCINES (B) Aged Out N o longer eligible based on patient's age to complete this topic Medical Devices Not on file Procedures Procedure Name Priority Date/Time Associated Diagnosis Comments LIPID PANEL Routine 08/21/2021 7:41 AM EDT Low testosterone in male from Last 3 Months or Most Recently Relevant to Health Maintenance Results * Lipid panel (08/21/2021 7:41 AM EDT) HDL 47 mg/dL [facility] Comment: Interpretation <40 mg/dL: Low HDL cholesterol (major risk factor for CHD) Greater than or equal to 60 mg/dL: High HDL cholesterol ( negative risk factor for CHD) HDL - cholesterol is affected by a number of factors, e.g. smoking, excerise, hormones, sex and age. CHOLESTEROL 182 0 - 240 mg/dL [facility] TRIGLYCERIDES 119 30 - 160 mg/dL [facility] LDL 111 50 - 129 mg/dL [facility] Comment: LDL levels in terms of risk for coronary heart disease: <100 mg/dL: Optimal 100-129 mg/dL: Near or above optimal 130-159 mg/dL: Borderline high 160-189 mg/dL: High >190 mg/dL: Very High CARDIAC RISK RATIO 3.9 3.4 - 5.0 [facility] Blood 08/21/2021 7:41 AM EDT 08/21/2021 7:47 AM EDT us Geremias Dan DO LAB BLOOD ORDERABLES Final Resul t [address] [id number] from Last 3 Months or Most Recently Relevant to Health Maintenance Insurance [employer] Care Teams Rocket Assembly Operator Relationship Specialty Start Date End Date Sanjiv Del Real DO [address] [place] [address] [email or web address] PCP - General Internal Medicine 10/07/24 Additional Source Comments The information contained in this document represents components of the legal health record. It is not the complete legal health record.[facility]
--- OUTSIDE RECORDS SUMMARY | 2025-01-19 18:25 | XMS_ITS | Encounter Summary ---
Author Organization [facility] Address [address] [facility] [address] [place] [phone] Phone Care Team Providers Care Washing Machine Operator Name Role Phone Gt, Sanjiv Lange Primary Care Provider [phone] Bigda, Sanjiv Nazario DO Unavailable Bigda, Sanjiv A DO Primary Care Provider [phone] Encounter Details Date Type Department Care Team (Late st Contact Info) Description 12/24/2023 Procedure Pass [facility] Endoscopy Admitting Dept Virtual Department [address] [place] [address] Social History Tobacco Use Types Packs/Day Years [...] Diagnoses Not on filedocumented in this encounter Care Teams Washing Machine Operator Relationship Specialty Start Date End Date Sanjiv Del Real DO [email or web address] PCP - General Internal Medicine 04/20/17 10/06/24 Sanjiv Del Real DO [address] [place] [address] [email or web address] PCP - General Internal Medicine 10/07/24 Sanjiv Del Real DO [address] [place] [address] [email or web address] Insurance Assigned Provider 05/10/24 01/08/25 documented as of this encounter Additional Source Comments The information contained in this document represents components of the legal health record. It is not the complete legal health record.[facility]
--- OUTSIDE RECORDS SUMMARY | 2025-01-19 18:25 | XMS_ITS | Encounter Summary ---
Author Organization [facility] Address [address] [place] [address] [place] [address] Phone Care Team Providers Care Objective C Developer Name Role Phone Gt Sanjiv Lange DO Unavailable Anjelica Pritchard KIER PLEATER Unavailable [phone] Roland Ibrahim MD Unavailable [phone] Leeann Montana MD Unavailable [phone] Padmaja Puentes KIER PLEATER Unavailable Bigda, Sanjiv A DO Primary Care Provider [phone] Bigda, Sanjiv A DO Unavailable Bigda, Sanjiv A DO Unavailable Bigda, Sanjiv A DO Primary Care Provider [phone] Reason for Referral * MRI/CAT Scan - Closed Specialty Diagnoses / Procedures Referred By Contmelecio t Referred To Contact Radiology Diagnoses Benign neoplasm of bone and articular cartilage, unspecified Osteochondroma Procedures MRI Knee (Left) Allison Villanueva PA Phone: tel: fax: [address] Phone: tel:[phone] Referral ID Status Reason Start Date Expiration Date Visits Re quested Visits Authorized [id number] Closed 11/12/2019 11/11/2020 1 1 Encounter Details Date Type Department Care Team (Latest Contact Info) Description 11/12/2019 Transcribe Orders Virtual Department [address] [place] [address] Allison Villanueva PA [address] [place] [place] [address] [place] [address] Benign neoplasm of bone and articular cartilage, unspecified (Primary Dx); Osteochondroma Social History Tobacco Use Types Packs/Day Years Used Date Smoking Tobacco: Former Cigarettes Q uit: 1999 Smokeless Tobacco: Never Alcohol Use Standard Drinks/Week [...] on file documented as of this encounter Results * MRI KNEE WITHOUT CONTRAST (LEFT) (11/27/2019 7:24 AM EDT) Anatomical Region Laterality Modality Knee Left Magnetic Resonan ce 11/27/2019 8:48 AM EDT Impressions 11/27/2019 8:59 AM EDT Probable small tear involving the central attachment region of the posterior horn of the medial meniscus. Small joint effusion. No evidence of malignant degeneration or soft tissue mass associated with the femoral exostosis. Slightly suboptimal definition of the proximal insertion point of the ACL which could be correlated with any clinical findings of partial tearing. No other significant ligamentous pathology apparent. POS - [id number] Narrative 11/27/2019 8:59 AM EDT TECHNIQUE: Exam performed on a 1.5 Cayla high-field MRI scanner. Axial proton density with fat suppression, coronal proton density with fat suppression, sagittal T1, oblique sagittal proton density and proton density with fat suppression parallel to the plane of the ACL sequences were obtained. FINDINGS: Comparison is made with the radiographic study of 11/11/2019. There is prominent grade 2 signal in the posterior horn of the medial meniscus, particularly in its peripheral extent, with a probable small curvilinear tear seen along the dorsal aspect of the horn near the central insertion point. Lateral meniscus and anterior horn of the medial meniscus are intact. Posterior cruciate ligament is intact. There is slightly suboptimal definition of the proximal ACL insertion point on the femur but the remainder of the ligament is intact as are the MCL and lateral collateral ligamentous complex. Popliteus, infrapatellar, and visualized portions of the distal quadriceps tendons are intact. There is a small joint effusion containing a few plicae in the suprapatellar bursa with fluid also seen along the margins of the tibiofibular articulation. No focal osteochondral defect or significant abnormality of skeletal marrow signal noted. No soft tissue mass seen along the exostosis arising from the lateral diametaphyseal junction of the femur. No large cartilaginous cap apparent. No soft tissue mass noted. Procedure Note Hardeep Gonsalez MD - 11/27/2019 TECHNIQUE: Exam performed on a 1.5 Cayla high-field MRI scanner. Axialproton density with fat suppression, coronal proton density with fatsuppression, sagittal T1, oblique sagittal proton density and protondensity with fat suppression parallel to the plane of the ACL sequenceswere obtained. FINDINGS: Comparison is made with the radiographic study of 11/11/2019. There is prominent grade 2 signal in the posterior horn of the medialmeniscus, particularly in its peripheral extent, with a probable smallcurvilinear tear seen along the dorsal aspect of the horn near the centralinsertion point. Lateral meniscus and anterior horn of the medial meniscusare intact. Posterior cruciate ligament is intact. There is slightly suboptimaldefinition of the proximal ACL insertion point on the femur but theremainder of the ligament is intact as are the MCL and lateral collateralligamentous complex. Popliteus, infrapatellar, and visualized portions ofthe distal quadriceps tendons are intact. There is a small joint effusion containing a few plicae in thesuprapatellar bursa with fluid also seen along the margins of thetibiofibular articulation. No focal osteochondral defect or significantabnormality of skeletal marrow signal noted. No soft tissue mass seenalong the exostosis arising from the lateral diametaphyseal junction ofthe femur. No large cartilaginous cap apparent. No soft tissue massnoted. IMPRESSION: Probable small tear involving the central attachment region of theposterior horn of the medial meniscus. Small joint effusion. No evidenceof malignant degeneration or soft tissue mass associated with the femoralexostosis. Slightly suboptimal definition of the proximal insertion point of the ACLwhich could be correlated with any clinical findings of partial tearing.No other significant ligamentous pathology apparent. POS - [id number] Allison VALLEJO IMG MR EXTREMITY Final Resu lt documented in this encounter Visit Diagnoses Diagnosis Benign neoplasm of bone and articular cartilage, unspecified- Primary Osteochondroma Benign neoplasm of bone and articular cartilage, unspecified Osteochondroma documented in this encounter Additional Health Concerns Infection Onset Date Last Indicated Resolved Time CoV-Presumed 07/07/2020 07/07/2020 07/27/2020 1:24 AM EDT CoV-Risk 05/10/2023 05/10/2023 05/21/2023 1:22 AM EST documented as of this encounter Care Teams Objective C Developer Relationship Specialty Start Date End Date Sanjiv Del Real DO [address] [place] [phone] PCP - General Internal Medicine 04/20/17 10/06/24 Sanjiv Del Real DO [address] [place] [address] PCP - General Internal Medicine 10/07/24 Sanjiv Del Real DO [address] [place] [address] Historical LMR Provider 02/22/17 05/12/21 Anjelica Pritchard NP [address] [place] [address] [email or web address] Historical LMR Provider 02/22/17 2 Roland Ibrahim MD 22 [facility] [address] [place] [address] Historical LMR Provider 02/22/17 05/12/21 Leeann Montana MD [address] [place] [address] Orth[facility] Medicine, [place] [address] Historical LMR Provider 02/22/17 Padmaja Puentes NP [address] [place] [address] Historical LMR Provider 02/22/17 2 Sanjiv Del Real DO [address] [place] [address] Insurance Assigned Provider 09/05/18 11/11/20 Sanjiv Del Real DO [address] [place] [address] Insurance Assigned Provider 05/10/24 01/08/25 documented as of this encounter Additional Source Comments The information contained in this document represents components of the legal health record. It is not the complete legal health record.[facility]
--- OUTSIDE RECORDS SUMMARY | 2025-01-19 18:25 | XMS_ITS | Encounter Summary ---
Author Organization [facility] Address [address] [place] [address] Phone Care Team Providers Care Truck Driver Rubbish Collector Name Role Phone Gt, Sanjiv Lange DO Primary Care Provider [phone] Bigda, Sanjiv A DO Unavailable Bigda, Sanjiv A DO Primary Care Provider [phone] Encounter Details Date Type Department Care Team (Latest Contact Info) Description 10/16/2022 Transcribe Orders Virtual Department [address] [place] [address] Allison Villanueva PA 6 [facility] [place] [address] [place] [address] Bronchitis, not specified as acute or chronic (Primary Dx) Social History Tobacco Use Types Packs/Day Years [...] documented as of this encounter Results * XR CHEST PA AND LATERAL 2 VIEWS (10/16/2022 12:05 PM EDT) Anatomical Region Laterality Modality Chest Computed Radiogr aphy 10/16/2022 7:49 PM EDT Impressions 10/16/2022 7:49 PM EDT No acute findings. Narrative 10/16/2022 7:49 PM EDT XR CHEST PA AND LATERAL 2 VIEWS COMPARISON: July 21, 2020 FINDINGS: Lungs: No pneumonia or pulmonary edema. Pleura: No pleural effusion. No pneumothorax Heart/Mediastinum: Heart size normal. Bones/Soft Tissues: No acute finding Procedure Note Easton Khan MD, SID - 10/16/2022 XR CHEST PA AND LATERAL 2 VIEWS COMPARISON: July 21, 2020 FINDINGS: Lungs: No pneumonia or pulmonary edema. Pleura: No pleural effusion. No pneumothorax Heart/Mediastinum: Heart size normal. Bones/Soft Tissues: No acute finding IMPRESSION: No acute findings. Allison VALLEJO IMG XR CHEST Final Resul t documented in this encounter Visit Diagnoses Diagnosis Bronchitis, not specified as acute or chronic- Primary Bronchitis, not specified as acute or chronic documented in this encounter Additional Health Concerns Infection Onset Date Last Indicated Resolved Time CoV-Risk 05/10/2023 05/10/2023 05/21/2023 1:22 AM EST documented as of this encounter Care Teams Truck Driver Rubbish Collector Relationship Specialty Start Date End Date Sanjiv Del Real DO PCP - General Internal Medicine 04/20/17 10/06/24 Sanjiv Del Real DO [address] [place] [address] [email or web address] PCP - General Internal Medicine 10/07/24 Sanjiv Del Real DO [address] [place] [address] Insurance Assigned Provider 05/10/24 01/08/25 documented as of this encounter Additional Source Comments The information contained in this document represents components of the legal health record. It is not the complete legal health record.[facility]
--- OUTSIDE RECORDS SUMMARY | 2025-01-19 18:25 | XMS_ITS | Encounter Summary ---
Author Organization [facility] Address [address] [place] [address] Phone Care Team Providers Care Improvement Auditor Name Role Phone Sanjiv Del Real DO Unavailable Anjelica Pritchard AIRPLANE PILOT CHIEF Unavailable [phone] Roland Ibrahim MD Unavailable [phone] Leeann Montana MD Unavailable [phone] Padmaja Puentes AIRPLANE PILOT CHIEF Unavailable Bigda, Sanjiv A DO Primary Care Provider [phone] Bigda, Sanjiv A DO Unavailable Bigda, Sanjiv A DO Unavailable Bigda, Sanjiv A DO Primary Care Provider [phone] Reason for Referral * Physical Therapy (Elective) - Closed Specialty Diagnoses / Procedures Referred By Adela monzon Referred To Contact Physical Therapy Diagnoses Encounter for rehabilitation Low Back Pain Procedures Evaluate & Treat Anne Singh PA-C Phone: tel: fax: [address] [address] Phone: tel: Referral ID Status Reason Start Date Expiration Date Visits Re quested Visits Authorized [id number] Closed 12/22/2018 05/04/2019 16 16 Encounter Details Date Type Department Care Team (Latest Contact Info) Description 12/23/2018 Transcribe Orders [facility] [address] [place] [address] Anne Singh, MEMO [address]. [address] [place] [address] Encounter for rehabilitation (Primary Dx) Social History Tobacco Use Types Packs/Day Years Used Date Smoking Tobacco: Former Smokeless Tobacco: Never Sex and Gender Information Value Date Recorded Sex Assigned at Male 05/12/2017 9:38 AM EST Legal Sex Male 9:36 PM EDT Gender Identity Male 05/12/2017 9:38 AM EST Sexual Orientation Straight 05/12/2017 9: 38 AM EST documented as of this encounter Plan of Treatment Not on file documented as of this encounter Procedures Procedure Name Priority Date/Time Associated Diagnosis Comments AMB REFERRAL TO [facility] Routine 01/21/2019 12:49 PM EDT Encounter for rehabilitation documented in this encounter Results * Ambulatory referral to [facility] Physical Therapy (01/21/2019 12:49 PM EDT) August Francisco [facility] AMB [facility] REFERRALS Final Resu lt documented in this encounter Visit Diagnoses Diagnosis Encounter for rehabilitation- Primary documented in this encounter Additional Health Concerns Infection Onset Date Last Indicated Resolved Time CoV-Presumed 07/07/2020 07/07/2020 07/27/2020 1:24 AM EDT CoV-Risk 05/10/2023 05/10/2023 05/21/2023 1:22 AM EST documented as of this encounter Care Teams Improvement Auditor Relationship Specialty Start Date End Date Sanjiv Del Real DO [address] [place] [address] [email or web address] PCP - General Internal Medicine 04/20/17 10/06/24 Sanjiv Del Real DO [address] [place] [address] PCP - General Internal Medicine 10/07/24 Sanjiv Del Real DO [address] [place] [address] Historical LMR Provider 02/22/17 05/12/21 Anjelica Pritchard, AIRPLANE PILOT CHIEF [address] [place] [address] [email or web address] Historical LMR Provider 02/22/17 2 Roland Ibrahim MD [address] [place] [address], [address] [place] [address] Historical LMR Provider 02/22/17 05/12/21 Leeann Montana MD [address] [place] [address] Orth[facility] Sports Medicine, [place] [address] Historical LMR Provider 02/22/17 Padmaja Puentes NP [address] [place] [address] Historical LMR Provider 02/22/17 2 Sanjiv Del Real DO [address] [place] [address] Insurance Assigned Provider 09/05/18 11/11/20 Sanjiv Del Real DO [address] [place] [address] Insurance Assigned Provider 05/10/24 01/08/25 documented as of this encounter Additional Source Comments The information contained in this document represents components of the legal health record. It is not the complete legal health record.[facility]
--- OUTSIDE RECORDS SUMMARY | 2025-01-19 18:25 | XMS_ITS | Encounter Summary ---
Author Organization [facility] Address [address] [place] [address] [place] [address] Phone Care Team Providers Care Endoscope Technician Name Role Phone Sanjiv Del Real DO Unavailable Anjelica Pritchard BEAD FILLER Unavailable [phone] Roland Ibrahim MD Unavailable [phone] Leeann Montana MD Unavailable [phone] Padmaja Puentes BEAD FILLER Unavailable Bigda, Sanjiv A DO Primary Care Provider [phone] Bigda, Sanjiv A DO Unavailable Bigda, Sanjiv A DO Unavailable Bigda, Sanjiv A DO Primary Care Provider [phone] Encounter Details Date Type Department Care Team (Latest Contact Info) Description 03/19/2019 Transcribe Orders Virtual Department [address] [place] [address] Anne Singh PA-C [address] [place] [address] Right hip pain (Primary Dx); Pain in left hip; Low back pain, unspecified back pain laterality, unspecified chronicity, unspecified whether sciatica present Social History Tobacco Use Types Packs/Day Years [...] as of this encounter Results * XR LUMBOSACRAL SPINE 4 OR MORE VIEWS (03/20/2019 8:39 AM EST) Anatomical Region Laterality Modality L-spine Radiographic Laura ging 03/20/2019 8:46 AM EST Impressions 03/20/2019 8:48 AM EST Minimal multilevel degenerative changes. POS - [id number] Narrative 03/20/2019 8:48 AM EST EXAM: XR LUMBOSACRAL SPINE 4 OR MORE VIEWS COMPARISON: Lumbar spine MRI on December 31, 2011 History: Pain. FINDINGS: Lumbar lordosis is maintained. No significant subluxations. Vertebral body heights and disc spaces are preserved. Tiny marginal osteophytes at multiple levels. Bilateral sacroiliac joints are congruent. Procedure Note Naomi Guzman MD - 03/20/2019 EXAM: XR LUMBOSACRAL SPINE 4 OR MORE VIEWS COMPARISON: Lumbar spine MRI on December 31, 2011 History: Pain. FINDINGS: Lumbar lordosis is maintained. No significant subluxations. Vertebral bodyheights and disc spaces are preserved. Tiny marginal osteophytes atmultiple levels. Bilateral sacroiliac joints are congruent. IMPRESSION: Minimal multilevel degenerative changes. POS - [id number] August Francisco [facility] IMG XR SPINE Final Result * XR HIP 2 VW RIGHT PLUS PELVIS (03/20/2019 8:37 AM EST) Anatomical Region Laterality Modality Hip Right Radiographic Laura ging 03/20/2019 8:48 AM EST Impressions 03/20/2019 8:53 AM EST Minimal early degenerative changes in bilateral hip joints. POS - [id number] Narrative 03/20/2019 8:53 AM EST EXAMS: 1. XR HIP 2 VW RIGHT PLUS PELVIS 2. XR HIP 2-3 VW LEFT COMPARISON: Pelvis radiograph on January 03, 2017 History: Pain for months. No trauma. FINDINGS: Osseous structures of the pelvis are intact, with no fracture seen. Femoral heads are properly seated within the acetabulum. Previously seen impingement configuration of both hips appears less prominent on today's images. Minimal sclerotic changes of bilateral acetabula. Sacroiliac joints are symmetric. Overlying soft tissues are unremarkable. Procedure Note Naomi Guzman MD - 03/20/2019 EXAMS: 1. XR HIP 2 VW RIGHT PLUS PELVIS 2. XR HIP 2-3 VW LEFT COMPARISON: Pelvis radiograph on January 03, 2017 History: Pain for months. No trauma. FINDINGS: Osseous structures of the pelvis are intact, with no fracture seen.Femoral heads are properly seated within the acetabulum. Previously seenimpingement configuration of both hips appears less prominent on today'simages. Minimal sclerotic changes of bilateral acetabula. Sacroiliacjoints are symmetric. Overlying soft tissues are unremarkable. IMPRESSION: Minimal early degenerative changes in bilateral hip joints. POS - [id number] Anne Francisco [facility] IMG XR PELVIS Final Result * XR HIP 2-3 VW LEFT (03/20/2019 8:36 AM EST) Anatomical Region Laterality Modality Hip Left Radiographic Laura ging 03/20/2019 8:48 AM EST Impressions 03/20/2019 8:53 AM EST Minimal early degenerative changes in bilateral hip joints. POS - [id number] Narrative 03/20/2019 8:53 AM EST EXAMS: 1. XR HIP 2 VW RIGHT PLUS PELVIS 2. XR HIP 2-3 VW LEFT COMPARISON: Pelvis radiograph on January 03, 2017 History: Pain for months. No trauma. FINDINGS: Osseous structures of the pelvis are intact, with no fracture seen. Femoral heads are properly seated within the acetabulum. Previously seen impingement configuration of both hips appears less prominent on today's images. Minimal sclerotic changes of bilateral acetabula. Sacroiliac joints are symmetric. Overlying soft tissues are unremarkable. Procedure Note Naomi Guzman MD - 03/20/2019 EXAMS: 1. XR HIP 2 VW RIGHT PLUS PELVIS 2. XR HIP 2-3 VW LEFT COMPARISON: Pelvis radiograph on January 03, 2017 History: Pain for months. No trauma. FINDINGS: Osseous structures of the pelvis are intact, with no fracture seen.Femoral heads are properly seated within the acetabulum. Previously seenimpingement configuration of both hips appears less prominent on today'simages. Minimal sclerotic changes of bilateral acetabula. Sacroiliacjoints are symmetric. Overlying soft tissues are unremarkable. IMPRESSION: Minimal early degenerative changes in bilateral hip joints. POS - [id number] August Francisco [facility] IMG XR PELVIS Final Result documented in this encounter Visit Diagnoses Diagnosis Right hip pain- Primary Pain in joint, pelvic region and thigh Pain in left hip Low back pain, unspecified back pain laterality, unspecified chronicity, unspecified whether sciatica present Pain in left hip Right hip pain Pain in joint, pelvic region and thigh Low back pain, unspecified back pain laterality, unspecified chronicity, unspecified whether sciatica present documented in this encounter Additional Health Concerns Infection Onset Date Last Indicated Resolved Time CoV-Presumed 07/07/2020 07/07/2020 07/27/2020 1:24 AM EDT CoV-Risk 05/10/2023 05/10/2023 05/21/2023 1:22 AM EST documented as of this encounter Care Teams Endoscope Technician Relationship Specialty Start Date End Date Sanjiv Del Real DO [address] [place] [address] [email or web address] PCP - General Internal Medicine 04/20/17 10/06/24 Sanjiv Del Real DO [address] [place] [address] PCP - General Internal Medicine 10/07/24 Sanjiv Del Real DO [address] [place] [address] Historical LMR Provider 02/22/17 05/12/21 Anjelica Pritchard NP [address] [place] [address] [email or web address] Historical LMR Provider 02/22/17 2 Roland Ibrahim MD [address] [place] [address] Historical LMR Provider 02/22/17 05/12/21 Leeann Montana MD [address] [place] [address] Orth[facility] Medicine, [place] [address] Historical LMR Provider 02/22/17 Padmaja Puentes NP [address] [place] [address] Historical LMR Provider 02/22/17 2 Sanjiv Del Real DO [address] [place] [address] Insurance Assigned Provider 09/05/18 11/11/20 Sanjiv Del Real DO [address] [place] [address] [email or web address] Insurance Assigned Provider 05/10/24 01/08/25 documented as of this encounter Additional Source Comments The information contained in this document represents components of the legal health record. It is not the complete legal health record.[facility]
--- OUTSIDE RECORDS SUMMARY | 2025-01-19 18:25 | XMS_ITS | Encounter Summary ---
Author Organization [facility] Address [address] [facility] [address] [place] [address] Phone Care Team Providers Care Batch Operator Name Role Phone FabiolaSanjiv deal Primary Care Provider [phone] Bigda, Sanjiv Nazario DO Unavailable Bigda, Sanjiv A DO Primary Care Provider [phone] Reason for Referral * Consultation (Routine) - Closed Specialty Diagnoses / Procedures Referred By Contmelecio t Referred To Contact Pulmonary Disease Allison Villanueva PA [address] [place] [address] Phone: tel: fax: [facility] [address] [place] [address] Phone: tel: Referral ID Status Reason Start Date Expiration Date Visits Re quested Visits Authorized [id number] Closed 05/14/2023 05/14/2024 1 1 Encounter Details Date Type Department Care Team (Late st Contact Info) Description 05/14/2023 Transcribe Orders CD Pulmonary, Allergy and Critical Care Medicine [address] [place] [address] Allison Villanueva PA [address] [place] [address] Social History Tobacco Use Types Packs/Day Years [...] as of this encounter Plan of Treatment Scheduled Referrals Name Type Priority Associated Diagnoses Order Schedule [facility] Pul[facility]ology Outpatient Referral Routine Ordered: 05/14/2023 documented as of this encounter Visit Diagnoses Not on filedocumented in this encounter Additional Health Concerns Infection Onset Date Last Indicated Resolved Time CoV-Risk 05/10/2023 05/10/2023 05/21/2023 1:22 AM EST documented as of this encounter Care Teams Batch Operator Relationship Specialty Start Date End Date Sanjiv Del Real DO PCP - General Internal Medicine 04/20/17 10/06/24 Sanjiv Del Real DO [address] [place] [address] PCP - General Internal Medicine 10/07/24 Sanjiv Del Real DO [address] [place] [address] Insurance Assigned Provider 05/10/24 01/08/25 documented as of this encounter Additional Source Comments The information contained in this document represents components of the legal health record. It is not the complete legal health record.[facility]
--- OUTSIDE RECORDS SUMMARY | 2025-01-19 18:25 | XMS_ITS | Encounter Summary ---
Author Organization [facility] Address [facility] Scal[facility] [address] [place] [address] Phone Care Team Providers Care Guest Experience Representative Name Role Phone Sanjiv Del Real DO Unavailable Anjelica Pritchard SWITCH TECHNICIAN Unavailable [phone] Roland Ibrahim MD Unavailable [phone] Leeann Montana MD Unavailable [phone] Padmaja Puentes SWITCH TECHNICIAN Unavailable Bigda, Sanjiv A DO Primary Care Provider [phone] Bigda, Sanjiv A DO Unavailable Bigda, Sanjiv A DO Unavailable Bigda, Sanjiv A DO Primary Care Provider [phone] Encounter Details Date Type Department Care Team (Latest Contact Info) Description 03/19/2019 Transcribe Orders [facility] [address] [place] [address] Anne Singh PA-C [address] [place], [place] [id number] Low back pain, unspecified back pain laterality, unspecified chronicity, unspecified whether sciatica present (Primary Dx) Social History Tobacco Use Types [...] documented as of this encounter Results * C-Reactive Protein (03/19/2019 9:53 AM EST) C REACTIVE PROTEIN <0.3 0.0 - 4.0 mg/L [facility] Blood 03/19/2019 9:53 AM EST 03/19/2019 10:[address] [facility] LAB BLOOD ORDERABLES Final R esult [address] [address] * Sedimentation rate (ESR) (03/19/2019 9:53 AM EST) Pathologist [facility] ESR 1 0 - 15 mm/h [facility] Blood 03/19/2019 9:53 AM EST 03/19/2019 10:[address] [facility] LAB BLOOD ORDERABLES Final R esult Performing Organization Address City/[facility]/ZIP Co de Phone Number [address] [address] * Antinuclear antibody (SON) (03/19/2019 9:53 AM EST) SON SCREEN ON HEP 2 Negative Negative [facility] Blood 03/19/2019 9:53 AM EST 03/19/2019 10:[address] [facility] LAB BLOOD ORDERABLES Final R esult Performing Organization Address City/[facility]/ZIP Co de Phone Number [address] [address] * Rheumatoid factor (03/19/2019 9:53 AM EST) RHEUMATOID FACTOR <10.0 0.0 - 14.0 IU/ml [facility] Blood 03/19/2019 9:53 AM EST 03/19/2019 10:16 AM EST Result [facility] LAB BLOOD ORDERABLES Final R esult Performing Organization Address [facility] de Phone Number [address] [address] * Lyme screen with reflex to Western blot, blood (03/19/2019 9:53 AM EST) Lyme AB IgG Negative Negative [facility] Lyme AB IgM Negative Negative [facility] Blood 03/19/2019 9:53 AM EST 03/19/2019 10:16 AM EST Result [facility] LAB [facility]OD [facility]AB[facility] Performing Organization Address [facility] de Phone Number [address] [address] * HLA-B27, BLOOD (03/19/2019 9:53 AM EST) HLA-B27 RESULT Positive Not Applicable [facility] DPT OF LAB MED AND PAT+ INTERPRETATION SEE NOTE [facility] DPT OF LAB MED AND PAT+ Comment: (NOTE) HLA-B27 antigen was detected. Approximately 8% of the normal population carries the HLA-B27 antigen. HLA-B27 is present in approximately 89% of patients with ankylosing spondylitis, 79% of patients with Safia's syndrome and 42% of patients with juvenile rheumatoid arthritis. However, lacking other data, it is not diagnostic for these disorders. This test does not differentiate B27 alleles. i.e. B*27:05, B*27:06, etc. ADDITIONAL INFORMATION Method: Flow Cytometry Blood 03/19/2019 9:53 AM EST 03/19/2019 10:16 AM EST [facility] LAB BLOOD ORDERABLES Final R esult [facility] DPT OF LAB MED AND PAT+ [address] [place] [address] documented in this encounter Visit Diagnoses Diagnosis Low back pain, unspecified back pain laterality, unspecified chronicity, unspecified whether sciatica present- Primary documented in this encounter Additional Health Concerns Infection Onset Date Last Indicated Resolved Time CoV-Presumed 07/07/2020 07/07/2020 07/27/2020 1:24 AM EDT CoV-Risk 05/10/2023 05/10/2023 05/21/2023 1:22 AM EST documented as of this encounter Care Teams Guest Experience Representative Relationship Specialty Start Date End Date Sanjiv Del Real DO [address] [place] [address] PCP - General Internal Medicine 04/20/17 10/06/24 Sanjiv Del Real DO [address] [place] [address] PCP - General Internal Medicine 10/07/24 Sanjiv Del Real DO [address] [place] [address] Historical LMR Provider 02/22/17 05/12/21 Anjelica Pritchard NP [address] [place] [address] [email or web address] Historical LMR Provider 02/22/17 2 Roland Ibrahim MD [address] [place] [address], [address] [place] [address] Historical LMR Provider 02/22/17 05/12/21 Leeann Montana MD [address] [place] [address] [facility], [place] [address] Historical LMR Provider 02/22/17 Padmaja Puentes NP [address] [place] [address] Historical LMR Provider 02/22/17 2 Sanjiv Del Real DO [address] [place] [address] Insurance Assigned Provider 09/05/18 11/11/20 Sanjiv Del Real DO [address] [place] [address] Insurance Assigned Provider 05/10/24 01/08/25 documented as of this encounter Additional Source Comments The information contained in this document represents components of the legal health record. It is not the complete legal health record.[facility]
--- OUTSIDE RECORDS SUMMARY | 2025-01-19 18:25 | XMS_ITS | Encounter Summary ---
Author Organization [facility] Address [address] [facility] [address] [place] [address] Phone Care Team Providers Care Retail Office Associate Name Role Phone Gt, Sanjiv Laneg Primary Care Provider [phone] Bigda, Sanjiv A DO Unavailable Bigda, Sanjiv A DO Primary Care Provider [phone] Encounter Details Date Type Department Care Team (Late st Contact Info) Description 12/23/2023 Procedure Pass [facility]oscopy Admitting Dept Virtual Department [address] [place] [address] Social History Tobacco Use Types Packs/Day Years [...] on filedocumented in this encounter Care Teams Retail Office Associate Relationship Specialty Start Date End Date Sanjiv Del Real DO PCP - General Internal Medicine 04/20/17 10/06/24 Sanjiv Del Real DO [address] [place] [address] PCP - General Internal Medicine 10/07/24 Sanjiv Del Real DO [address] [place] [address] Insurance Assigned Provider 05/10/24 01/08/25 documented as of this encounter Additional Source Comments The information contained in this document represents components of the legal health record. It is not the complete legal health record.[facility]
--- OUTSIDE RECORDS SUMMARY | 2025-01-19 18:25 | XMS_ITS | Encounter Summary ---
Author Organization [facility] Address [address] [place] [address] Phone Care Team Providers Care Morals Squad Police Officer Name Role Phone FabiolaSanjiv deal Primary Care Provider [phone] Bigda, Sanjiv Lange DO Unavailable Bigda, Sanjiv A DO Primary Care Provider [phone] Encounter Details Date Type Department Care Team (Late st Contact Info) Description 06/20/2023 Procedure Pass [facility], Ct Scan - [address] [address] Social History Tobacco Use Types Packs/Day Years [...] on filedocumented in this encounter Care Teams Morals Squad Police Officer Relationship Specialty Start Date End Date Sanjiv Del Real DO [email or web address] PCP - General Internal Medicine 04/20/17 10/06/24 Sanjiv Del Real DO [address] [place] [address] [email or web address] PCP - General Internal Medicine 10/07/24 Sanjiv Del Real DO [address] [place] [address] [email or web address] Insurance Assigned Provider 05/10/24 01/08/25 documented as of this encounter Additional Source Comments The information contained in this document represents components of the legal health record. It is not the complete legal health record.[facility]
--- OUTSIDE RECORDS SUMMARY | 2025-01-19 18:25 | XMS_ITS | Encounter Summary ---
Author Organization [facility] Address [address] [place] [address] Phone Care Team Providers Care Appellate Law Clerk Name Role Phone FabiolaSanjiv deal Primary Care Provider [phone] Bigda, Sanjiv A DO Unavailable Bigda, Sanjiv A DO Primary Care Provider Encounter Details Date Type Department Care Team (Late st Contact Info) Description 11/04/2022 Procedure Pass [facility], Ct Scan - [address] [address] Social History Tobacco Use Types Packs/Day Years [...] documented as of this encounter Care Teams Appellate Law Clerk Relationship Specialty Start Date End Date Sanjiv Del Real DO PCP - General Internal Medicine 04/20/17 10/06/24 Sanjiv Del Real DO [address] [place] [address] [email or web address] PCP - General Internal Medicine 10/07/24 Sanjiv Del Real DO [address] [place] [address] Insurance Assigned Provider 05/10/24 01/08/25 documented as of this encounter Additional Source Comments The information contained in this document represents components of the legal health record. It is not the complete legal health record.[facility]
--- OUTSIDE RECORDS SUMMARY | 2025-01-19 18:25 | XMS_ITS | Encounter Summary ---
Author Organization [facility] Address [address] [facility] [address] [place] [address] Phone Care Team Providers Care Pediatric Occupational Therapist Name Role Phone Sanjiv Del Real DO Unavailable Anjelica Pritchard COAL MILL OPERATOR Unavailable [phone] Roland Ibrahim MD Unavailable [phone] Leeann Montana MD Unavailable [phone] Padmaja Puentes COAL MILL OPERATOR Unavailable Bigda, Sanjiv A DO Primary Care Provider [phone] Bigda, Sanjiv A DO Unavailable Bigda, Sanjiv A DO Unavailable Bigda, Sanjiv A DO Primary Care Provider [phone] Encounter Details Date Type Department Care Team (Late st Contact Info) Description 07/21/2020 Transcribe Orders Virtual Department [address] [place] [address] Allison Villanueva PA 6 [facility] [place] [address] [place] [address] Cough (Primary Dx) Social History Tobacco Use Types [...] XR CHEST PA AND LATERAL 2 VIEWS (07/21/2020 1:19 PM EDT) Anatomical Region Laterality Modality Chest Computed Radiogr aphy 07/21/2020 1:28 PM EDT Impressions 07/21/2020 1:30 PM EDT Bilateral parenchymal opacities indicative of pneumonia. Narrative 07/21/2020 1:30 PM EDT HISTORY: As above. COMPARISON: 04/20/2007. CHEST RADIOGRAPH FINDINGS: Views: 2. Lines/Tubes: None. Heart and Mediastinum: Normal. Lungs: Bilateral patchy parenchymal opacities throughout the mid and lower lung zones left greater the right. No masses. No pleural effusions. Bones: Stable mild mid thoracic endplate spurring and mild anterior wedging. Soft Tissues: No acute findings. Procedure Note Edwar Manley MD - 07/21/2020 HISTORY: As above. COMPARISON: 04/20/2007. CHEST RADIOGRAPH FINDINGS: Views: 2. Lines/Tubes: None. Heart and Mediastinum: Normal. Lungs: Bilateral patchy parenchymal opacities throughout the mid andlower lung zones left greater the right. No masses. No pleuraleffusions. Bones: Stable mild mid thoracic endplate spurring and mild anteriorwedging. Soft Tissues: No acute findings. IMPRESSION: Bilateral parenchymal opacities indicative of pneumonia. Allison VALLEJO IMG XR CHEST Final Resul t documented in this encounter Visit Diagnoses Diagnosis Cough- Primary Cough documented in this encounter Additional Health Concerns Infection Onset Date Last Indicated Resolved Time CoV-Presumed 07/07/2020 07/07/2020 07/27/2020 1:24 AM EDT CoV-Risk 05/10/2023 05/10/2023 05/21/2023 1:22 AM EST documented as of this encounter Care Teams Pediatric Occupational Therapist Relationship Specialty Start Date End Date Fabiolatoyin Sanjiv LangeDO [address] [place] [address] PCP - General Internal Medicine 04/20/17 10/06/24 Sanjiv Del Real DO [address] [place] [address] PCP - General Internal Medicine 10/07/24 Sanjiv Del Real DO [address] [place] [address] Historical LMR Provider 02/22/17 05/12/21 Anjelica Pritchard NP [address] [place] [address] [email or web address] Historical LMR Provider 02/22/17 2 Roland Ibrahim MD [address] [place] [address], 2[address] [place] [address] Historical LMR Provider 02/22/17 05/12/21 Leeann Montana MD [address] [place] [address] [facility], [place] [address] Historical LMR Provider 02/22/17 Padmaja Puentes NP [address] [place] [address] Historical LMR Provider 02/22/17 2 Sanjiv Del Real DO [address] [place] [address] [email or web address] Insurance Assigned Provider 09/05/18 11/11/20 Sanjiv Del Real DO [address] [place] [address] Insurance Assigned Provider 05/10/24 01/08/25 documented as of this encounter Additional Source Comments The information contained in this document represents components of the legal health record. It is not the complete legal health record.[facility]
--- OUTSIDE RECORDS SUMMARY | 2025-01-19 18:25 | XMS_ITS | Encounter Summary ---
Author Organization [facility] Address [address] [facility] [address] [place] [address] Phone Care Team Providers Care Bench Molder Apprentice Name Role Phone Gt, Sanjiv Lange Primary Care Provider [phone] Bigda, Sanjiv A DO Unavailable Bigda, Sanjiv A DO Primary Care Provider [phone] Encounter Details Date Type Department Care Team (Late st Contact Info) Description 12/23/2023 Procedure Pass [facility]oscopy Admitting Dept Virtual Department [address] [place] [address] Social History Tobacco Use Types Packs/Day Years [...] on filedocumented in this encounter Care Teams Bench Molder Apprentice Relationship Specialty Start Date End Date Sanjiv Del Real DO PCP - General Internal Medicine 04/20/17 10/06/24 Sanjiv Del Real DO [address] [place] [address] PCP - General Internal Medicine 10/07/24 Sanjiv Del Real DO [address] [place] [address] Insurance Assigned Provider 05/10/24 01/08/25 documented as of this encounter Additional Source Comments The information contained in this document represents components of the legal health record. It is not the complete legal health record.[facility]
--- OUTSIDE RECORDS SUMMARY | 2025-01-19 18:25 | XMS_ITS | Encounter Summary ---
Author Organization [facility] Address [address] [place] [address] [place] [address] Phone Care Team Providers Care Elevator Dispatcher Name Role Phone Sanjiv Del Real Primary Care Provider [phone] Bigda, Sanjiv A DO Unavailable Bigda, Sanjiv A DO Primary Care Provider [phone] Reason for Referral * MRI/CAT Scan - Closed Specialty Diagnoses / Procedures Referred By Contac t Referred To Contact Radiology Diagnoses Chronic cough Procedures CT Chest CHG DIAGNOSTIC COMPUTED TOMOGRAPHY THORAX W/O CNTRST Allison Villanueva PA 6 [facility] [place] [address] Phone: tel: fax: Referral ID Status Reason Start Date Expiration Date Visits Re quested Visits Authorized [id number] Closed 11/04/2022 01/03/2023 1 1 Encounter Details Date Type Department Care Team (Latest Contact Info) Description 11/04/2022 Transcribe Orders Virtual Department [address] [place] [address] Allison Villanueva PA 6 [facility] [place] [address] Chronic cough (Primary Dx) Social History Tobacco Use Types [...] documented as of this encounter Results * CT CHEST WITHOUT CONTRAST (11/13/2022 1:12 PM EDT) Anatomical Region Laterality Modality Chest Computed Tomogra phy 11/15/2022 6:06 AM EDT Impressions 11/15/2022 6:53 PM EDT No cause for the reported symptoms identified in the thorax. Sub-3 mm nodules, statistically most likely benign. RECOMMENDATION: If there are risk factors for lung cancer (e.g. smoking history), consider optional follow-up chest CT in 12 months, per the Fleischner Society 2017 recommendations. If there are no risk factors for lung cancer, no further follow-up is required. Narrative 11/15/2022 6:[address] CHEST WITHOUT CONTRAST TECHNIQUE: Multidetector CT of the chest was performed without intravenous contrast using tailored dose modulation. COMPARISON: None FINDINGS: Devices/Tubes/Lines: None. Lungs: Central airways are patent. No consolidation. Subcentimeter nodules, for example a 3 mm left lower lobe nodule 4:159 and 3 mm left upper lobe nodule and 4:157. Pleura: Normal. No pleural effusion or pneumothorax. Mediastinum: Normal. No thyroid nodules. Heart and pericardium are normal. Lymph Nodes: Normal. No enlarged supraclavicular, axillary, mediastinal, or hilar lymph nodes. Upper Abdomen: Normal. No abnormality detected in the visualized upper abdomen. Chest Wall: Normal. No chest wall mass. Bones: Minimal spine degenerative change. Procedure Note Maxime Sy MD - 11/15/2022 CT CHEST WITHOUT CONTRAST TECHNIQUE: Multidetector CT of the chest was performed without intravenouscontrast using tailored dose modulation. COMPARISON: None FINDINGS: Devices/Tubes/Lines: None. Lungs: Central airways are patent. No consolidation. Subcentimeternodules, for example a 3 mm left lower lobe nodule 4:159 and 3 mm leftupper lobe nodule and 4:157. Pleura: Normal. No pleural effusion or pneumothorax. Mediastinum: Normal. No thyroid nodules. Heart and pericardium arenormal. Lymph Nodes: Normal. No enlarged supraclavicular, axillary, mediastinal,or hilar lymph nodes. Upper Abdomen: Normal. No abnormality detected in the visualized upperabdomen. Chest Wall: Normal. No chest wall mass. Bones: Minimal spine degenerative change. IMPRESSION: No cause for the reported symptoms identified in the thorax. Sub-3 mm nodules, statistically most likely benign. RECOMMENDATION: If there are risk factors for lung cancer (e.g. smoking history), consideroptional follow-up chest CT in 12 months, per the Fleischner Society 2017recommendations. If there are no risk factors for lung cancer, no furtherfollow-up is required. Allison WEST CT CHEST Final Resul t documented in this encounter Visit Diagnoses Diagnosis Chronic cough- Primary Cough Chronic cough Cough documented in this encounter Additional Health Concerns Infection Onset Date Last Indicated Resolved Time CoV-Risk 05/10/2023 05/10/2023 05/21/2023 1:22 AM EST documented as of this encounter Care Teams Elevator Dispatcher Relationship Specialty Start Date End Date Sanjiv Del Real DO PCP - General Internal Medicine 04/20/17 10/06/24 Sanjiv Del Real DO [address] [place] [address] [email or web address] PCP - General Internal Medicine 10/07/24 Sanjiv Del Real DO [address] [place] [address] [email or web address] Insurance Assigned Provider 05/10/24 01/08/25 documented as of this encounter Additional Source Comments The information contained in this document represents components of the legal health record. It is not the complete legal health record.[facility]
--- OUTSIDE RECORDS SUMMARY | 2025-01-19 18:25 | XMS_ITS | Encounter Summary ---
Author Organization [facility] Address [address] [employer] [facility] [address] [place] [address] Phone Care Team Providers Care Granite Fabricator Name Role Phone Sanjiv Del Real DO Unavailable Anjelica Pritchard HEALTH CARE AIDE Unavailable [phone] Roland Ibrahim MD Unavailable [phone] Leeann Montana MD Unavailable [phone] Padmaja Puentes HEALTH CARE AIDE Unavailable Bigda, Sanjiv A DO Primary Care Provider [phone] Bigda, Sanjiv A DO Unavailable Bigda, Sanjiv A DO Unavailable Bigda, Sanjiv A DO Primary Care Provider [phone] Encounter Details Date Type Department Care Team (Late st Contact Info) Description 11/10/2019 Ancillary Orders Virtual Department [address] [place] [address] Allison Villanueva PA 6 [facility] [place] [address] Left knee pain, unspecified chronicity Social History Tobacco Use Types Packs/Day Years [...] as of this encounter Results * XR KNEE 4 OR MORE VIEWS (LEFT) (11/11/2019 8:38 AM EDT) Anatomical Region Laterality Modality Knee Left Computed Radiogr aphy 11/11/2019 8:39 AM EDT Impressions 11/11/2019 8:52 AM EDT No significant bony pathology is apparent other than a probable small benign osteochondroma arising from the distal lateral femoral diaphysis about 7 cm above the jointline. If the patient has pain directly at this site, MRI would be appropriate to ensure that there is no associated soft tissue mass or signs of malignant degeneration although that seems unlikely given the well-defined cortex of the exostosis. POS [id number] Narrative 11/11/2019 8:52 AM EDT 4 views. No comparison No evidence of trauma or infection No gross joint effusion. No significant arthritic changes. There is a small exostosis arising off the lateral distal femoral diaphysis consistent with an osteochondroma. No gross indication of associated soft tissue mass. Procedure Note Bobby Fuentes MD - 11/11/2019 4 views. No comparison No evidence of trauma or infection No gross joint effusion. No significant arthritic changes. There is a small exostosis arising off the lateral distal femoraldiaphysis consistent with an osteochondroma. No gross indication ofassociated soft tissue mass. IMPRESSION: No significant bony pathology is apparent other than a probable smallbenign osteochondroma arising from the distal lateral femoral diaphysisabout 7 cm above the jointline. If the patient has pain directly at thissite, MRI would be appropriate to ensure that there is no associated softtissue mass or signs of malignant degeneration although that seemsunlikely given the well-defined cortex of the exostosis. POS [id number] Allison VALLEJO IMG XR LOWER EXTREMITY Deandra l Result documented in this encounter Visit Diagnoses Diagnosis Left knee pain, unspecified chronicity Left knee pain, unspecified chronicity documented in this encounter Additional Health Concerns Infection Onset Date Last Indicated Resolved Time CoV-Presumed 07/07/2020 07/07/2020 07/27/2020 1:24 AM EDT CoV-Risk 05/10/2023 05/10/2023 05/21/2023 1:22 AM EST documented as of this encounter Care Teams Granite Fabricator Relationship Specialty Start Date End Date Sanjiv Del Real DO [address] [place] [address] PCP - General Internal Medicine 04/20/17 10/06/24 Sanjiv Del Real DO [address] [place] [address] PCP - General Internal Medicine 10/07/24 Sanjiv Del Real DO [address] [place] [address] Historical LMR Provider 02/22/17 05/12/21 Anjelica Pritchard NP [address] [place] [address] [email or web address] Historical LMR Provider 02/22/17 2 Roland Ibrahim MD [address] [place] [address] Historical LMR Provider 02/22/17 05/12/21 Leeann Montana MD [address] [place] [address] Orthopedics & Sports Medicine, [facility] [place] [address] [email or web address] Historical LMR Provider 02/22/17 Padmaja Puentes NP [address] [place] [address] Historical LMR Provider 02/22/17 2 Sanjiv Del Real DO [address] [place] [address] [email or web address] Insurance Assigned Provider 09/05/18 11/11/20 Sanjiv Del Real DO [address] [place] [address] [email or web address] Insurance Assigned Provider 05/10/24 01/08/25 documented as of this encounter Additional Source Comments The information contained in this document represents components of the legal health record. It is not the complete legal health record.[facility]
--- NOTE | 2025-01-19 19:44 | PC.NURSE ---
Assumed care of patient at 1845, patient calm and cooperative, alert and oriented x4. Patient aware of plan of care for IPLOC
[2025-01-19] MEDS: SELEGILINE 6 MG/24 HR 6 EACH TRANSDERMA (21:49)
--- NOTE | 2025-01-20 03:58 | PC.NURSE ---
Pt up to use bathroom, otherwise has slept through night so far. no apparent distress
[2025-01-20 05:31] VITALS: BP 118/74; PULSE 72; RESP 17; TEMP 36.8; O2SAT 100
[2025-01-20 06:00] VITALS: PULSE 72
--- NOTE | 2025-01-20 07:22 | PC.NURSE ---
Assumed care, report received. Pt is calm and cooperative. His is eating breakfast.
[2025-01-20 11:21] VITALS: BP 118/70; PULSE 63; RESP 12; TEMP 36.1; O2SAT 100
[2025-01-20 15:00] VITALS: BP 142/86; PULSE 71; RESP 17; TEMP 36.9; O2SAT 98
--- NOTE | 2025-01-20 15:25 | P.CONHOSP_ITS ---
History of Present Illness Data of Consult Service Date: 01/20/25 Primary Care Provider: Sanjiv Del Real MD [facility] Reason for consult: Medical H&P 54-year-old male with a past medical history of JUANPABLO, generalized anxiety disorder, attention deficit disorder and major depressive disorder presented to the ED with increased depression and anxiety and feeling suicidal ideation. Emergency room workup included blood work which was unremarkable for anemia, leukocytosis, renal or liver impairment. Tox screen was positive for benzodiazepines no EtOH, urine without evidence of infection. On exam he denies any shortness of breath, dizziness, lightheadedness. He has no medical concerns. Plan for possible ECT. Review of Systems 2 Review of Systems: Denies any shortness of breath, chest pain, dizziness, lightheadedness, abdominal pain or discomfort, nausea vomiting or diarrhea PMFSH Medical History Acute recurrent streptococcal tonsillitis Atypical chest pain Chronic hoarseness Restless legs Allergic rhinitis GERD (gastroesophageal reflux disease) Sleep apnea Social History Household Members: Spouse and Other Household Members Other:: 2 dogs step son when not in College Comment: [place] TBD Patient Tobacco Use Status: Former Tobacco user Tobacco use type: Cigarette Smoked in Last 30 Days: No Use of substances other than those prescribed or required for medical reasons: No Advance Directives: No Advance Directives Information Provided: No service: No Sexual orientation: Straight/Heterosexual Meds Allergies Allergy/AdvReac Type Severity Reaction Status Date / Time No Known Allergies (No Known Allergy Verified 01/19/25 14:21 Allergies*) Active Medications: Current Medications Acetaminophen (Acetaminophen 325 Mg Tablet) 650 mg PO Q6H PRN PRN Reason: Headache/Pain, Scale 1-10 Al Hydroxide/Mg Hydroxide (Magnesium Hydrox/Alum Hydrox 30 Ml Oral.Susp) 30 ml PO Q6H PRN PRN Reason: Heartburn/Nausea Alprazolam (Alprazolam 0.5 Mg Tablet) 1 mg PO TID [facility] Last Admin: 01/20/25 08:43 Dose: Not Given Hydroxyzine HCl (Hydroxyzine Hcl 25 Mg Tablet) 25 mg PO Q6H PRN PRN Reason: mild anxiety Lamotrigine (Lamotrigine 100 Mg Tablet) 200 mg PO DAILY [facility] Last Admin: 01/20/25 08:12 Dose: 200 mg Magnesium Hydroxide (Milk Of Magnesia 30 Ml Oral.Susp) 30 ml PO DAILY PRN PRN Reason: Constipation Nicotine Polacrilex (Nicotine Polacrilex 2 Mg Gum) 4 mg BUCCAL Q2H PRN PRN Reason: Nicotine Cravings Patient Own ( Selegiline [Emsam] 6 Mg/24 Hr Patch 24 Hour) 6 mg TRANSDERMA BEDTIME FLAVIO Last Admin: 01/19/25 21:49 Dose: 6 mg Trazodone HCl (Trazodone Hcl 50 Mg Tablet) 50 mg PO BEDTIME MRX1 PRN PRN Reason: Insomnia Home Medications ?Medication ?Instructions ?Recorded ?Confirmed ?Last Taken ?Type alprazolam 1 mg tablet 1 mg PO TID PRN anxiety 12/0401/19/25 Unknown History lamotrigine 200 mg tablet 200 mg PO DAILY 12/22/24 Unknown History selegiline 6 mg/24 hr transdermal 6 mg transdermal KEVIN LY 01/10/25 01/19/25 1 Day Ago History 24 hour patch (Emsam) ~01/18/25 Physical Exam 2 Vital Signs and Narrative: Vital Signs: Last Vital Signs Temp 97.0 F 01/20/25 11:21 Pulse 63 01/20/25 11:21 Resp 12 01/20/25 11:21 BP 118/70 01/20/25 11:21 Pulse Ox 100 01/20/25 11:21 O2 Del Method Room Air 01/20/25 11:21 BMI result Body Mass Index 20.3 CONST: Alert and oriented, in NAD. Well nourished HEENT: Normocephalic, atraumatic, MMM, Eyes clear, Neck supple RESP: Lungs clear, RRR even and regular HEART:,RRR, S1, S2. No edema GI:Abdomen Soft NT, ND. + BS times four :Deferred SKIN: Warm dry and intact, no visible lesions or rashes NEURO:CN II-XII Intact bilaterally, Sensation intact. Speech clear PSYCH: Guarded affect Results Labs 01/19/25 14:56 01/19/25 14:56 Labs: Laboratory Results - last 24 hr 01/19/25 01/19/25 14:56 15:03 Anion Gap 12 Estim Creat Clear Calc 66.3 Estimated GFR > 60 Random Glucose 127 H Calcium 9.1 Total Bilirubin 0.5 AST 30 ALT 33 Alkaline Phosphatase 45 Total Protein 7.3 Albumin 4.5 Urine Opiates Screen Not Detected Ur Buprenorphine Scrn Not Detected Ur Oxycodone Screen Not Detected Urine Methadone Screen Not Detected Urine Fentanyl Screen Not Detected Ur Barbiturates Screen Not Detected Ur Phencyclidine Scrn Not Detected Ur Amphetamines Screen Not Detected U Benzodiazepines Scrn POSITIVE H Urine Cocaine Screen Not Detected U Marijuana (THC) Screen Not Detected Ethyl Alcohol < 10 Assessment and Plan (1) Major depressive disorder, recurrent, moderate: Status: Acute Plan 54 year old male with PMH of major depressive disorder, attention and concentration deficit, general anxiety disorder who presented to the ED with increased depression. Plans for possible ECT Major depressive disorder, attention and concentration deficit, general anxiety disorder Treatment plan per Psychiatry Thank you for allowing me to participate in the care of this patient. Will follow as needed, please notify medical provider with any changes in condition or concerns.
--- NOTE | 2025-01-20 17:01 | PC.ADMIT ---
Patient arrived about 3 PM in w/c from [facility]. He is 54 year old Tajik speaking male who was brought to this hospital by his d/t increased SI, increased depression and anxiety and diminished functioning ability to self care. Patient has a prior Dx of Major Depressive Disorder, Generalized Anxiety D/o and ADHD. Patient stated that recent passing of his father increased his feeling of hopelessness and SI /without plan. Hoping to start ECTs here. Upon assessment pt is oriented x4, speech is clear. Denied SI, HI,AVH at time of assessment. Said, that long time ago/25 years ago, he cut his forearm /showing his old scars on left forearm. He added, he didn't want to kill himself. During assessments Roland is pleasant, calm, intermittently emotional and tearful, help seeking. Assessed by med provider. Signed CV. Pt ambulates independently, denies pain. Skin check completed and intact. Living in a house with his and 22 y.o. stepson who attends college. 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
[2025-01-20 18:00] VITALS: BMI 27.9
--- NOTE | 2025-01-20 18:43 | PC.NURSE ---
Patient's visited and took a box of 17 Emsam patches back home.
[2025-01-20 20:00] VITALS: BP 124/76; PULSE 65; RESP 18; TEMP 36.6; O2SAT 98
[2025-01-20] MEDS: SELEGILINE TRANSDERMA (20:38)
[2025-01-21 08:00] VITALS: BP 111/71; PULSE 76; RESP 16; TEMP 36.6; O2SAT 98
[2025-01-21 09:06] LABS: Hemoglobin A1C 151.4942 umol/L; Total Hemoglobin (HGBA1C) 4316.1433 umol/L
[2025-01-21 09:20] LABS: Alanine Aminotransferase 29 U/L (0-40); Albumin Level 4.6 g/dL (3.5-5.0); Alkaline Phosphatase 46 U/L (39-117); Anion Gap 9 (12-20); Aspartate Amino Transferase 26 U/L (5-37); Blood Urea Nitrogen 13 mg/dL (9-16); Calcium 9.2 mg/dL (8.4-10.2); Carbon Dioxide 28 mmol/L (22-29); Chloride 109 mmol/L (96-108); Cholesterol 201 mg/dL (<200); Creatinine Clr Calc Pharmacy 88.2; Estimated Glomerular Filt Rate > 60; HDL Cholesterol 43 mg/dL (>40); Potassium 3.8 mmol/L (3.3-5.1); Sodium 142 mmol/L (135-145); Total Protein 7.4 g/dL (6.5-8.0); Triglycerides 96 mg/dL (<150)
[2025-01-21 09:40] LABS: Thyroid Stimulating Hormone 1.01 uIU/mL (0.32-4.0)
--- NOTE | 2025-01-21 10:24 | HO.PSYADMNOT ---
HPI Date of Service: 01/21/25 Chief Complaint: SI Sources of Information: patient interviewed, chart reviewed and crisis/core team assessment reviewed HPI Subjective Notes: Fishman Warning and Conditional Voluntary Narrative: Pt is a 54 yo male with severe treatment-resistant MDD, SHALINI, ADHDand JUANPABLO, who presents to inpatient unit for ECT. PT reports numerous failed medication trials, including TMSx2. Depression has been getting worse over the past 2 months and he is now having to take a leave from work. Pt worsening depression includes diminished interest, increased guilt, diminished energy, not taking care of ADL's and passive SI. Depression coincides with several psychosocial stressors including his fathers this spring, he's therapist discontinuing treatment and his wifes health issues. He endorses sometimes reading on the internet about suicide but denies any intent or plans. Past Psychiatric History: Pt reports passive SI but no plan and no intent to harm self; denies any past SI attempt.outpt tx with Dr Steve Berman; has done TMS a couple yrs ago. Previous trails: multiple medication trials including numerous antidepressants as well as mood stabilizers (Prozac, Zoloft, Celexa, Wellbutrin, Remeron, Effexor, Buspar, (has been on a TCA x1, cant recall) gabapentin, Lamcital, Seroquel, Zyprexa, Abilify, Risperdal, also recently trialed on Ritalin and now Adderall for augmentation along with current trtmt on Latuda, Cymbalta, Xanax. (He is unsure about Paxil, Lexapro, no MAOs, Trintillex, Viibryd, Pristiq, other newer ADs, and denies trials of lithium, cariprazine, no FGAs, or other AEDs aside from LTG and romulo. No other nootropics or stimulant trials aside from short acting MPH and AMP). His doctor was considering ADHD as a possibility, however patient denies any history of issues with attention or focus or memory until more recent years. Reports doing well in school and had been successful at work in earlier decades. modafinil (up to 200 mg BID) in -12/2023, ADderall, various antidepressants, mood stabilizers Last PHP admission, he was discharged on: duloxetine 90 mg/d (split 60/30) modafinil 100-150 mg qam as augmentation for TRD levothyroxine 50 mcg/day as augmentation for TRD memantine ER 14 mg daily lurasidone 40 mg qd w meals CURRENT MEDICATIONS: Lamictal 200 mg qd alprazolam 1 mg TID prn anxiety pilocarpine 10 mg BID Medical Evaluation Reviewed: Yes [facility] Medical History Acute recurrent streptococcal tonsillitis Atypical chest pain Chronic hoarseness Restless legs Allergic rhinitis GERD (gastroesophageal reflux disease) Sleep apnea Family History: , at home with >10 yrs and one adult step son Father recently Born in [facility] and raised by bio parents; has a younger brother who lives in [place] but is distant emotionally; Social History: pt grad HS nad attended college w degree in [employer], pt on JENNIFER from work currently. Living in a house with his and 22 y.o. amandoon who attends college. 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 Trauma History: pt denies Diagnostics Vital Signs (24Hr): Vital Signs - 24 hr 01/20/25 11:21 01/20/25 15:00 01/20/25 20:00 Temperature 97.0 F 98.4 F 97.9 F Pulse Rate 63 71 65 Respiratory Rate 12 17 18 Blood Pressure 118/70 142/86 H 124/76 Pulse Oximetry 100 98 98 Oxygen Delivery Method Room Air Room Air Room Air 01/21/25 08:00 Temperature 97.8 F Pulse Rate 76 Respiratory Rate 16 Blood Pressure 111/71 Pulse Oximetry 98 Oxygen Delivery Method Room Air BMI result Body Mass Index 27.9 Labs 01/19/25 14:56 01/21/25 08:46 Labs: Laboratory Results - last 48 hr 01/19/25 01/19/25 01/21/25 14:56 15:03 08:46 WBC 6.6 RBC 5.19 Hgb 15.6 Hct 44.6 MCV 85.9 MCH 30.1 MCHC 35.0 RDW 12.4 Plt Count 191 MPV 9.5 Immature Gran % (Auto) 0.5 H Neut % (Auto) 56.4 Lymph % (Auto) 35.3 [place] % (Auto) 6.2 Eos % (Auto) 1.1 Baso % (Auto) 0.5 Lymph # (Auto) 2.3 [place] # (Auto) 0.4 Eos # (Auto) 0.1 Baso # (Auto) 0.0 Abs Immat Gran (auto) 0.03 Absolute Neuts (auto) 3.7 Absolute Nucleated RBC 0.000 Nucleated RBC % (auto) 0.0 Sodium 142 142 Potassium 3.8 3.8 Chloride 108 109 H Carbon Dioxide 26 28 Anion Gap 12 9 L BUN 16 13 Creatinine 1.21 1.13 Estim Creat Clear Calc 66.3 88.2 Estimated GFR > 60 > 60 Random Glucose 127 H 103 Estimat Average Glucose 108 Hemoglobin A1c % 5.4 Calcium 9.1 9.2 Total Bilirubin 0.5 1.0 AST 30 26 ALT 33 29 Alkaline Phosphatase 45 46 Total Protein 7.3 7.4 Albumin 4.5 4.6 Triglycerides 96 Cholesterol 201 H LDL Cholesterol, Calc 139 H HDL Cholesterol 43 TSH 1.01 Urine Color Yellow Urine Appearance Clear Urine pH 6.5 Ur Specific [place] 1.010 Urine Protein Negative Urine Glucose (UA) Negative Urine Ketones Negative Urine Blood Negative Urine Nitrite Negative Ur Leukocyte Esterase Negative Urine Opiates Screen Not Detected Ur Buprenorphine Scrn Not Detected Ur Oxycodone Screen Not Detected Urine Methadone Screen Not Detected Urine Fentanyl Screen Not Detected Ur Barbiturates Screen Not Detected Ur Phencyclidine Scrn Not Detected Ur Amphetamines Screen Not Detected U Benzodiazepines Scrn POSITIVE H Urine Cocaine Screen Not Detected U Marijuana (THC) Screen Not Detected Ethyl Alcohol < 10 Meds/Allergies Meds Home Medications ?Medication ?Instructions ?Recorded ?Confirmed ?Type alprazolam 1 mg tablet 1 mg PO TID PRN anxiety 12/22/24 01/19/25 History lamotrigine 200 mg tablet 200 mg PO DAILY 12/22/24 01/19/25 History selegiline 6 mg/24 hr transdermal 6 mg transdermal DAILY 01/10/25 01/19/25 History 24 hour patch (Emsam) Allergies Allergies Allergy/AdvReac Type Severity Reaction Status Date / Time No Known Allergies (No Known Allergy Verified 01/19/25 14:21 Allergies*) Mental Status Exam Mental Status Exam Narrative: Pt is alert and oriented; behavior is cooperative, tearful, patient is not in distress; dressed in casual attire with unkempt hair but adequate hygiene; mood is described as depressed and anxious and affect congruent, downcast and tearful; eye contact avoidant; Speech is normal rate, volume and prosody and not pressured; psychomotor retardation present; thought process is organized and goal directed; Thought content is on hopelessness; otherwise pertinent to relevant topics and without any delusional content, paranoid ideations or grandiosity; ongoing passive SI; Denies AVH and there is no evidence of perceptual disturbance. Patients insight and judgment impaired. Assessment & Plan Assessment & Plan (1) MDD (major depressive disorder), recurrent severe, without psychosis: Status: Acute Code(s): F33.2 - Major depressive disorder, recurrent severe without psychotic features (2) SHALINI (generalized anxiety disorder): Status: Acute Code(s): F41.1 - Generalized anxiety disorder (3) Attention and concentration deficit: Status: Acute Code(s): R41.840 - Attention and concentration deficit (4) Sleep apnea in adult: Status: Acute Code(s): G47.30 - Sleep apnea, unspecified Plan HPI: Pt is a 54 yo male with severe treatment-resistant MDD, SHALINI, ADHDand JUANPABLO, who presents to inpatient unit for ECT. PT reports numerous failed medication trials, including TMSx2. Depression has been getting worse over the past 2 months and he is now having to take a leave from work. Pt worsening depression includes diminished interest, increased guilt, diminished energy, not taking care of ADL's and passive SI. Depression coincides with several psychosocial stressors including his fathers this spring, he's therapist discontinuing treatment and his wifes health issues. He endorses sometimes reading on the internet about suicide but denies any intent or plans. Failed med trials: Prozac, Zoloft, Celexa, Wellbutrin, Remeron, Effexor, Buspar, (has been on a TCA x1, cant recall) gabapentin, Lamcital, Seroquel, Zyprexa, Abilify, Risperdal, Latuda, Cymbalta; levothyroxine Ritalin and Adderall for augmentation Formulation/Plan: severe refractory depression that is worsening; passive SI; needs inpt level of care for stability. Discussed ECT and Sports Anchor agrees that this is appropriate treatment given failed treatments and severity of depression. Plan; cv q15 min continue home meds ECT friday Patient educated on: diagnosis, medication risk/benefits and ECT Informed Consent: understands Reason for continued inpatient stay Substantial Risk for: inability to function Statement Statement: I have reviewed the history and physical and performed a pertinent examination on my patient. No changes have occurred unless specified. If the History and Physical was not performed prior to admission, the Hospitalist's service will be consulted for completing the admission physical. Time Spent With Patient Time: Total time managing care of this patient today ____ minutes.
--- NOTE | 2025-01-21 15:39 | HO.ECTCONS_ITS ---
History of Present Illness Data of Consult Service Date: 01/21/25 Primary Care Provider: Sanjiv Del Real MD [facility] Reason for consult: ECT consult 54-year-old male with a past medical history of JUANPABLO, generalized anxiety disorder, attention deficit disorder and major depressive disorder presented to the ED with increased depression and anxiety and feeling suicidal ideation. Emergency room workup included blood work which was unremarkable for anemia, leukocytosis, renal or liver impairment. Tox screen was positive for benzodiazepines no EtOH, urine without evidence of infection. He is admitted with plans for ECT treatment. He denies any RODRIGUEZ, orthopnea, PND. ?Denies history of cerebral hemorrhage or ischemic stroke, space-occupying intracranial lesion, or TBI.? No significant cardiac history including CAD, ID, or heart arrhythmias.? No severe pulmonary conditions.?Denies history PAD or bleeding disorders. No previous complications from anesthesia.? EKG reviewed, no ischemic changes.? Patient denies chest pain/pressure, palpitations.? No shortness of breath or difficulty breathing.? Denies lightheadedness or dizziness.? No fever, chills, nausea, vomiting, abdominal pain.? Ambulating with a steady gait on the unit.? Review of Systems 2 Review of Systems: Denies any shortness of breath, chest pain, dizziness, lightheadedness, abdominal pain or discomfort, nausea vomiting or diarrhea PMFSH Medical History Acute recurrent streptococcal tonsillitis Atypical chest pain Chronic hoarseness Restless legs Allergic rhinitis GERD (gastroesophageal reflux disease) Sleep apnea Social History Household Members: Spouse and Other Household Members Other:: one stepson Housing: House Do you presently have visiting nurse or other home services: No Comment: [place] TBD Patient Tobacco Use Status: Former Tobacco user Tobacco use type: Cigarette Smoked in Last 30 Days: No e-Cigarette/Vaping Use: Former Use Patient Interested in Nicotine Replacement: No Use of substances other than those prescribed or required for medical reasons: No Currently Displaying Signs/Symptoms of Drug Intoxication Withdrawal: No Have you been hit, kicked, punched, or otherwise hurt by someone within the past year? If so, by whom?: No Do you feel safe in your current relationship?: Yes Is there a partner from a previous relationship who is making you feel unsafe now?: No Are you made to feel afraid or neglected: No Advance Directives: No Advance Directives Information Provided: No Do you have thoughts of harming others: None Do you have a plan to hurt others: No Plan Recently lost weight without trying: No Nutrition Risks: No Nutritional Risk Poor oral hygiene: No service: No Sexual orientation: Straight/Heterosexual Meds Allergies Allergy/AdvReac Type Severity Reaction Status Date / Time No Known Allergies (No Known Allergy Verified 01/19/25 14:21 Allergies*) Active Medications: Current Medications Acetaminophen (Acetaminophen 325 Mg Tablet) 650 mg PO Q6H PRN PRN Reason: Headache/Pain, Scale 1-10 Last Admin: 01/21/25 00:03 Dose: 650 mg Al Hydroxide/Mg Hydroxide (Magnesium Hydrox/Alum Hydrox 30 Ml Oral.Susp) 30 ml PO Q6H PRN PRN Reason: Heartburn/Nausea Alprazolam (Alprazolam 0.5 Mg Tablet) 1 mg PO TID [facility] Last Admin: 01/21/25 15:13 Dose: 1 mg Hydroxyzine HCl (Hydroxyzine Hcl 25 Mg Tablet) 25 mg PO Q6H PRN PRN Reason: mild anxiety Last Admin: 01/21/25 05:20 Dose: 25 mg Lamotrigine (Lamotrigine 100 Mg Tablet) 200 mg PO DAILY [facility] Last Admin: 01/21/25 08:48 Dose: 200 mg Magnesium Hydroxide (Milk Of Magnesia 30 Ml Oral.Susp) 30 ml PO DAILY PRN PRN Reason: Constipation Nicotine Polacrilex (Nicotine Polacrilex 2 Mg Gum) 4 mg BUCCAL Q2H PRN PRN Reason: Nicotine Cravings Trazodone HCl (Trazodone Hcl 50 Mg Tablet) 50 mg PO BEDTIME MRX1 PRN PRN Reason: Insomnia Home Medications ?Medication ?Instructions ?Recorded ?Confirmed ?Last Taken ?Type alprazolam 1 mg tablet 1 mg PO TID PRN anxiety 12/0401/19/25 Unknown History lamotrigine 200 mg tablet 200 mg PO DAILY 12/22/24 Unknown History selegiline 6 mg/24 hr transdermal 6 mg transdermal KEVIN LY 01/10/25 01/19/25 1 Day Ago History 24 hour patch (Emsam) ~01/18/25 Physical Exam 2 Vital Signs and Narrative: Vital Signs: Last Vital Signs Temp 97.8 F 01/21/25 08:00 Pulse 76 01/21/25 08:00 Resp 16 01/21/25 08:00 BP 111/71 01/21/25 08:00 Pulse Ox 98 01/21/25 08:00 O2 Del Method Room Air 01/21/25 08:00 BMI result Body Mass Index 27.9 CONST: Alert and oriented, in NAD. Well nourished HEENT: Normocephalic, atraumatic, MMM, Eyes clear, Neck supple RESP: Lungs clear, RRR even and regular HEART:,RRR, S1, S2. No edema GI:Abdomen Soft NT, ND. + BS times four :Deferred SKIN: Warm dry and intact, no visible lesions or rashes NEURO:CN II-XII Intact bilaterally, Sensation intact. Speech clear PSYCH: Normal affect Results Labs 01/19/25 14:56 01/21/25 08:46 Labs: Laboratory Results - last 24 hr 01/21/25 08:46 Anion Gap 9 L Estim Creat Clear Calc 88.2 Estimated GFR > 60 Random Glucose 103 Estimat Average Glucose 108 Hemoglobin A1c % 5.4 Calcium 9.2 Total Bilirubin 1.0 AST 26 ALT 29 Alkaline Phosphatase 46 Total Protein 7.4 Albumin 4.6 Triglycerides 96 Cholesterol 201 H LDL Cholesterol, Calc 139 H HDL Cholesterol 43 TSH 1.01 Assessment and Plan (1) Major depressive disorder, recurrent, moderate: Status: Acute Plan 54 year old male with PMH of major depressive disorder, attention and concentration deficit, general anxiety disorder who presented to the ED with increased depression. Plans for possible ECT Major depressive disorder, attention and concentration deficit, general anxiety disorder Treatment plan per Psychiatry JUANPABLO not on CPAP May need oxygen post treatment ECT risk stratification Patient without previous problems with anesthesia, has never had ECT RCRI 0 points, no further cardiac workup or treatment indicated at this time. Patient denies any past problems with anesthesia. EKG showing QTc 426, no evidence of ischemic changes Based on stated PMH, HPI, and physical exam, there are no There are no obvious contraindications to the planned procedure. Thank you for allowing me to participate in the care of this patient. Will follow as needed, please notify medical provider with any changes in condition or concerns.
[2025-01-21 20:00] VITALS: BP 110/61; PULSE 68; RESP 18; TEMP 36.9; O2SAT 98
[2025-01-21] MEDS: SELEGILINE TRANSDERMA (21:12)
[2025-01-22 08:00] VITALS: BP 136/75; PULSE 69; TEMP 36.5; O2SAT 97
--- NOTE | 2025-01-22 09:25 | HO.PSYCHPN ---
Subjective Subjective Date of Service: 01/22/25 Reason For Visit: SI Interim History: met with patient; discussed with team; reviewed chart Remains anxious and depressed; typewriter assembly and parts inspector met with patient and his and discussed ECT at length, including risks/side effects; also discussed history of treatment. Patient challenged to be hopeful about anything but is hoping that ECT will be helpful. Mental Status Exam Mental Status Exam Narrative: Pt is alert and oriented; behavior is cooperative, sometimes tearful, patient is not in distress; dressed in casual attire with unkempt hair but adequate hygiene; mood is described as depressed and anxious and affect congruent; eye contact avoidant; Speech is normal rate, volume and prosody and not pressured; some psychomotor retardation present; thought process is organized and goal directed; Thought content is on hopelessness; otherwise pertinent to relevant topics and without any delusional content, paranoid ideations or grandiosity; ongoing passive SI; Denies AVH and there is no evidence of perceptual disturbance. Patients insight and judgment impaired. Diagnostics Vital Signs (24Hr): Vital Signs - 24 hr 01/21/25 20:00 Temperature 98.4 F Pulse Rate 68 Respiratory Rate 18 Blood Pressure 110/61 Pulse Oximetry 98 Oxygen Delivery Method Room Air BMI result Body Mass Index 27.9 Labs 01/19/25 14:56 01/21/25 08:46 Labs: Laboratory Results - last 48 hr 01/21/25 08:46 Sodium 142 Potassium 3.8 Chloride 109 H Carbon Dioxide 28 Anion Gap 9 L BUN 13 Creatinine 1.13 Estim Creat Clear Calc 88.2 Estimated GFR > 60 Random Glucose 103 Estimat Average Glucose 108 Hemoglobin A1c % 5.4 Calcium 9.2 Total Bilirubin 1.0 AST 26 ALT 29 Alkaline Phosphatase 46 Total Protein 7.4 Albumin 4.6 Triglycerides 96 Cholesterol 201 H LDL Cholesterol, Calc 139 H HDL Cholesterol 43 TSH 1.01 Medications Medications Current Medications Acetaminophen (Acetaminophen 325 Mg Tablet) 650 mg PO Q6H PRN PRN Reason: Headache/Pain, Scale 1-10 Last Admin: 01/21/25 00:03 Dose: 650 mg Al Hydroxide/Mg Hydroxide (Magnesium Hydrox/Alum Hydrox 30 Ml Oral.Susp) 30 ml PO Q6H PRN PRN Reason: Heartburn/Nausea Alprazolam (Alprazolam 0.5 Mg Tablet) 1 mg PO TID PRN PRN Reason: severe anxiety Last Admin: 01/21/25 21:14 Dose: 1 mg Hydroxyzine HCl (Hydroxyzine Hcl 25 Mg Tablet) 25 mg PO Q6H PRN PRN Reason: mild anxiety Last Admin: 01/21/25 05:20 Dose: 25 mg Lamotrigine (Lamotrigine 100 Mg Tablet) 200 mg PO DAILY FLAVIO Last Admin: 01/22/25 09:17 Dose: 200 mg Magnesium Hydroxide (Milk Of Magnesia 30 Ml Oral.Susp) 30 ml PO DAILY PRN PRN Reason: Constipation Nicotine Polacrilex (Nicotine Polacrilex 2 Mg Gum) 4 mg BUCCAL Q2H PRN PRN Reason: Nicotine Cravings Sodium Chloride (Sodium Chloride 0.65 % Nasal 44 Ml Sprbtl) 1 spray NOSTRIL-B Q1H PRN PRN Reason: dry nares Trazodone HCl (Trazodone Hcl 50 Mg Tablet) 50 mg PO BEDTIME MRX1 PRN PRN Reason: Insomnia Allergies Allergies Allergy/AdvReac Type Severity Reaction Status Date / Time No Known Allergies (No Known Allergy Verified 01/19/25 14:21 Allergies*) Assessment & Plan Assessment & Plan (1) MDD (major depressive disorder), recurrent severe, without psychosis: Status: Acute Code(s): F33.2 - Major depressive disorder, recurrent severe without psychotic features (2) SHALINI (generalized anxiety disorder): Status: Acute Code(s): F41.1 - Generalized anxiety disorder (3) Attention and concentration deficit: Status: Acute Code(s): R41.840 - Attention and concentration deficit (4) Sleep apnea in adult: Status: Acute Code(s): G47.30 - Sleep apnea, unspecified Plan HPI: Pt is a 54 yo male with severe treatment-resistant MDD, SHALINI, ADHDand JUANPABLO, who presents to inpatient unit for ECT. PT reports numerous failed medication trials, including TMSx2. Depression has been getting worse over the past 2 months and he is now having to take a leave from work. Pt worsening depression includes diminished interest, increased guilt, diminished energy, not taking care of ADL's and passive SI. Depression coincides with several psychosocial stressors including his fathers this spring, he's therapist discontinuing treatment and his wifes health issues. He endorses sometimes reading on the internet about suicide but denies any intent or plans. Failed med trials: Prozac, Zoloft, Celexa, Wellbutrin, Remeron, Effexor, Buspar, (has been on a TCA x1, cant recall) gabapentin, Lamcital, Seroquel, Zyprexa, Abilify, Risperdal, Latuda, Cymbalta; levothyroxine Ritalin and Adderall for augmentation Formulation/Plan: severe refractory depression that is worsening; passive SI; needs inpt level of care for stability. Discussed ECT and Appliances Sample Maker agrees that this is appropriate treatment given failed treatments and severity of depression. Hospital course: 01/22 Remains anxious and depressed; typewriter assembly and parts inspector met with patient and his and discussed ECT at length, including risks/side effects; also discussed history of treatment. Patient challenged to be hopeful about anything but is hoping that ECT will be helpful. Discussed how will lower and hold dose of Lamictal day before ECT. Also discussed untreated JUANPABLO and how treated JUANPABLO can help with depression; pt will discuss further with outpt provider. Plan; cv q15 min continue home meds Will taper down Lamictal and Hold day before ECT ECT friday Patient educated on: diagnosis, medication risk/benefits, ECT and medical condition Informed Consent: understands Reason for continued inpatient stay Substantial Risk for: inability to function and rapid decompensation Time Spent With Patient Time: Total time managing care of this patient today ____ minutes.
[2025-01-22 19:48] VITALS: BP 129/65; PULSE 73; RESP 18; TEMP 36.9; O2SAT 98
[2025-01-22] MEDS: SELEGILINE TRANSDERMA (20:39)
[2025-01-23 08:00] VITALS: BP 114/60; PULSE 66; TEMP 36.3; O2SAT 97
--- NOTE | 2025-01-23 13:11 | P.PNPSI_ITS ---
Subjective Subjective Date of Service: 01/23/25 Reason For Visit: SI Interim History: Met with patient; discussed with team; again discussed case with Remains depressed; anxious but looking forward to ECT; discussed medication regimen and holding Lamictal. Again discussed ECT and plan. Mental Status Exam Mental Status Exam Narrative: Pt is alert and oriented; behavior is cooperative, calm, mostly keeping to himself, patient is not in distress; dressed in casual attire with unkempt hair but adequate hygiene; mood is described as depressed and anxious and affect congruent; eye contact adequate; Speech is normal rate, volume and prosody and not pressured; some psychomotor retardation present; thought process is organized and goal directed; Thought content is on hopelessness; otherwise pertinent to relevant topics and without any delusional content, paranoid ideations or grandiosity; intermittent passive SI; Denies AVH and there is no evidence of perceptual disturbance. Patients insight and judgment fair. Diagnostics Vital Signs (24Hr): Vital Signs - 24 hr 01/22/25 19:48 01/23/25 08:00 Temperature 98.4 F 97.3 F Pulse Rate 73 66 Respiratory Rate 18 Blood Pressure 129/65 114/60 Pulse Oximetry 98 97 Oxygen Delivery Method Room Air Room Air BMI result Body Mass Index 27.9 Labs 01/19/25 14:56 01/21/25 08:46 Medications Medications Current Medications Acetaminophen (Acetaminophen 325 Mg Tablet) 650 mg PO Q6H PRN PRN Reason: Headache/Pain, Scale 1-10 Last Admin: 01/22/25 22:15 Dose: 650 mg Al Hydroxide/Mg Hydroxide (Magnesium Hydrox/Alum Hydrox 30 Ml Oral.Susp) 30 ml PO Q6H PRN PRN Reason: Heartburn/Nausea Alprazolam (Alprazolam 0.5 Mg Tablet) 1 mg PO TID PRN PRN Reason: severe anxiety Last Admin: 01/22/25 21:33 Dose: 1 mg Hydroxyzine HCl (Hydroxyzine Hcl 25 Mg Tablet) 25 mg PO Q6H PRN PRN Reason: mild anxiety Last Admin: 01/21/25 05:20 Dose: 25 mg Lamotrigine (Lamotrigine 100 Mg Tablet) 150 mg PO DAILY FLAVIO Magnesium Hydroxide (Milk Of Magnesia 30 Ml Oral.Susp) 30 ml PO DAILY PRN PRN Reason: Constipation Sodium Chloride (Sodium Chloride 0.65 % Nasal 44 Ml Sprbtl) 1 spray NOSTRIL-B Q1H PRN PRN Reason: dry nares Allergies Allergies Allergy/AdvReac Type Severity Reaction Status Date / Time No Known Allergies (No Known Allergy Verified 01/19/25 14:21 Allergies*) Assessment & Plan Assessment & Plan (1) MDD (major depressive disorder), recurrent severe, without psychosis: Status: Acute Code(s): F33.2 - Major depressive disorder, recurrent severe without psychotic features (2) SHALINI (generalized anxiety disorder): Status: Acute Code(s): F41.1 - Generalized anxiety disorder (3) Attention and concentration deficit: Status: Acute Code(s): R41.840 - Attention and concentration deficit (4) Sleep apnea in adult: Status: Acute Code(s): G47.30 - Sleep apnea, unspecified Plan HPI: Pt is a 54 yo male with severe treatment-resistant MDD, SHALINI, ADHDand JUANPABLO, who presents to inpatient unit for ECT. PT reports numerous failed medication trials, including TMSx2. Depression has been getting worse over the past 2 months and he is now having to take a leave from work. Pt worsening depression includes diminished interest, increased guilt, diminished energy, not taking care of ADL's and passive SI. Depression coincides with several psychosocial stressors including his fathers this spring, he's therapist discontinuing treatment and his wifes health issues. He endorses sometimes reading on the internet about suicide but denies any intent or plans. Failed med trials: Prozac, Zoloft, Celexa, Wellbutrin, Remeron, Effexor, Buspar, (has been on a TCA x1, cant recall) gabapentin, Lamcital, Seroquel, Zyprexa, Abilify, Risperdal, Latuda, Cymbalta; levothyroxine Ritalin and Adderall for augmentation Formulation/Plan: severe refractory depression that is worsening; passive SI; needs inpt level of care for stability. Discussed ECT and Fall Internship agrees that this is appropriate treatment given failed treatments and severity of depression. Hospital course: 01/22 Remains anxious and depressed; documentation writer met with patient and his and discussed ECT at length, including risks/side effects; also discussed history of treatment. Patient challenged to be hopeful about anything but is hoping that ECT will be helpful. Discussed how will lower and hold dose of Lamictal day before ECT. Also discussed untreated JUANPABLO and how treated JUANPABLO can help with depression; pt will discuss further with outpt provider. Plan; cv q15 min continue home meds Will taper down Lamictal and Hold day before ECT ECT friday Patient educated on: diagnosis, medication risk/benefits and ECT Informed Consent: understands Reason for continued inpatient stay Substantial Risk for: rapid decompensation and med/psych decompensation Time Spent With Patient Time: Total time managing care of this patient today ____ minutes.
[2025-01-23 20:00] VITALS: BP 136/85; PULSE 67; TEMP 36.5; O2SAT 96
[2025-01-23] MEDS: SELEGILINE TRANSDERMA (20:34)
[2025-01-24] VITALS (8 sets, daily range): BP systolic 116–141; BP diastolic 60–86; PULSE 57–95; RESP 13–18; TEMP 36.1–36.7; O2SAT 93–99
--- NOTE | 2025-01-24 07:11 | MHC.SHP ---
Pre-Procedural Eval Section A - 24 Hr Update-Section A only Date of Service: 01/24/25 The patient is an INPATIENT: Yes Changes since office visit: Yes Changes in Medication and Yes Patient answered all questions; No Cold of Flu in the past 2 weeks and No New Medical Problems The patient has been examined within 24 hours of the surgical procedure. The History & Physical has been completed within 30 days and I have reviewed it.: Yes Section B - Complete if H&P > 30 days Chief Complaint: SI Allergies: Allergies Allergy/AdvReac Type Severity Reaction Status Date / Time No Known Allergies (No Known Allergy Verified 01/19/25 14:21 Allergies*) Plan I have reviewed the history and physical and performed a pertinent physical examination on my patient. No changes have occurred unless specified. Time Spent With Patient Time: Total time managing care of this patient today ____ minutes.
--- NOTE | 2025-01-24 07:30 | HO.ANESPROP2 ---
HPI - Anesthesia Eval Consult details Narrative: 54 yo M presenting for ECT [facility] Active Problems Active Problems: All Active Problems Depression (Acute) Chronic fatigue (Acute) Low testosterone in male (Acute) Hypogonadism in male (Acute) Sleep apnea in adult (Acute) Attention and concentration deficit (Acute) MDD (major depressive disorder), recurrent severe, without psychosis (Acute) SHALINI (generalized anxiety disorder) (Acute) Major depressive disorder, recurrent, moderate (Acute) Past Medical History Medical History Acute recurrent streptococcal tonsillitis Atypical chest pain Chronic hoarseness Restless legs Allergic rhinitis GERD (gastroesophageal reflux disease) Sleep apnea Family History Family history of problems with anesthesia: No Surgical History History of Problems with Anesthesia: No Social History Social History Household Members: Spouse and Other Household Members Other:: one stepson Housing: House Do you presently have visiting nurse or other home services: No Comment: DC TBD Patient Tobacco Use Status: Former Tobacco user Tobacco use type: Cigarette Smoked in Last 30 Days: No e-Cigarette/Vaping Use: Former Use Patient Interested in Nicotine Replacement: No Use of substances other than those prescribed or required for medical reasons: No Currently Displaying Signs/Symptoms of Drug Intoxication Withdrawal: No Have you been hit, kicked, punched, or otherwise hurt by someone within the past year? If so, by whom?: No Do you feel safe in your current relationship?: Yes Is there a partner from a previous relationship who is making you feel unsafe now?: No Are you made to feel afraid or neglected: No Advance Directives: No Advance Directives Information Provided: No Do you have thoughts of harming others: None Do you have a plan to hurt others: No Plan Recently lost weight without trying: No Nutrition Risks: No Nutritional Risk Poor oral hygiene: No service: No Sexual orientation: Straight/Heterosexual Meds Allergies Allergy/AdvReac Type Severity Reaction Status Date / Time No Known Allergies (No Known Allergy Verified 01/19/25 14:21 Allergies*) Active Medications: Current Medications Acetaminophen (Acetaminophen 325 Mg Tablet) 650 mg PO Q6H PRN PRN Reason: Headache/Pain, Scale 1-10 Last Admin: 01/22/25 22:15 Dose: 650 mg Al Hydroxide/Mg Hydroxide (Magnesium Hydrox/Alum Hydrox 30 Ml Oral.Susp) 30 ml PO Q6H PRN PRN Reason: Heartburn/Nausea Alprazolam (Alprazolam 0.5 Mg Tablet) 1 mg PO TID PRN PRN Reason: severe anxiety Last Admin: 01/23/25 20:33 Dose: 1 mg Hydroxyzine HCl (Hydroxyzine Hcl 25 Mg Tablet) 25 mg PO Q6H PRN PRN Reason: mild anxiety Last Admin: 01/21/25 05:20 Dose: 25 mg Lactated Ringer's (Lr) 1,000 mls @ 100 mls/hr IVCONT .Q10H FLAVIO Lamotrigine (Lamotrigine 100 Mg Tablet) 150 mg PO DAILY FLAVIO Magnesium Hydroxide (Milk Of Magnesia 30 Ml Oral.Susp) 30 ml PO DAILY PRN PRN Reason: Constipation Sodium Chloride (Sodium Chloride 0.65 % Nasal 44 Ml Sprbtl) 1 spray NOSTRIL-B Q1H PRN PRN Reason: dry nares Home Medications ?Medication ?Instructions ?Recorded ?Confirmed ?Last Taken ?Type alprazolam 1 mg tablet 1 mg PO TID PRN anxiety 12/22/24 01/19/25 Unknown History lamotrigine 200 mg tablet 200 mg PO DAILY 12/22/24 01/19/25 Unknown History selegiline 6 mg/24 hr transdermal 6 mg transdermal DAILY 01/10/25 01/19/25 1 Day Ago History 24 hour patch (Emsam) ~01/18/25 Exam Exam Date and Time: 01/24/25 0739 Height,Weight and Vital Signs: Height 6 ft 3 in Weight 101.4 kg Last Vital Signs Temp 97 F 01/24/25 06:49 Pulse 57 01/24/25 06:49 Resp 18 01/24/25 06:49 BP 116/60 01/24/25 06:49 Pulse Ox 97 01/24/25 06:49 O2 Del Method Room Air 01/24/25 06:49 Pertinent Lab Results Pertinent Lab Results: Laboratory Tests 01/19/25 01/19/25 01/21/25 14:56 15:03 08:46 WBC 6.6 RBC 5.19 Hgb 15.6 Hct 44.6 MCV 85.9 MCH 30.1 MCHC 35.0 RDW 12.4 Plt Count 191 MPV 9.5 Immature Gran % (Auto) 0.5 H Neut % (Auto) 56.4 Lymph % (Auto) 35.3 [place] % (Auto) 6.2 Eos % (Auto) 1.1 Baso % (Auto) 0.5 Lymph # (Auto) 2.3 [place] # (Auto) 0.4 Eos # (Auto) 0.1 Baso # (Auto) 0.0 Abs Immat Gran (auto) 0.03 Absolute Neuts (auto) 3.7 Absolute Nucleated RBC 0.000 Nucleated RBC % (auto) 0.0 Sodium 142 142 Potassium 3.8 3.8 Chloride 108 109 H Carbon Dioxide 26 28 Anion Gap 12 9 L BUN 16 13 Creatinine 1.21 1.13 Estim Creat Clear Calc 66.3 88.2 Estimated GFR > 60 > 60 Random Glucose 127 H 103 Estimat Average Glucose 108 Hemoglobin A1c % 5.4 Calcium 9.1 9.2 Total Bilirubin 0.5 1.0 AST 30 26 ALT 33 29 Alkaline Phosphatase 45 46 Total Protein 7.3 7.4 Albumin 4.5 4.6 Triglycerides 96 Cholesterol 201 H LDL Cholesterol, Calc 139 H HDL Cholesterol 43 TSH 1.01 Urine Color Yellow Urine Appearance Clear Urine pH 6.5 Ur Specific [place] 1.010 Urine Protein Negative Urine Glucose (UA) Negative Urine Ketones Negative Urine Blood Negative Urine Nitrite Negative Ur Leukocyte Esterase Negative Urine Opiates Screen Not Detected Ur Buprenorphine Scrn Not Detected Ur Oxycodone Screen Not Detected Urine Methadone Screen Not Detected Urine Fentanyl Screen Not Detected Ur Barbiturates Screen Not Detected Ur Phencyclidine Scrn Not Detected Ur Amphetamines Screen Not Detected U Benzodiazepines Scrn POSITIVE H Urine Cocaine Screen Not Detected U Marijuana (THC) Screen Not Detected Ethyl Alcohol < 10 Airway Mallampati Class: I TM Dist: >3cm Neck ROM: Full Loose/Missing/Broken Teeth: Yes (several missing teeth but nothing loose or broken) Heart: S1S2 Lungs: CTAB Assessment and Plan Assessment Anesthesia Assessment: Anesthesia Plan Discussed and Chart Reviewed Final Anesthetic Review Family History of Problems with Anesthesia: No History of Problems with Anesthesia: No NPO: Yes ASA Class: III Final Preanesthetic Review: No Changes in Pt Med Stat, Meds/Allgs Chart Reviewed, Consent Obtained/Reviewed and Anes Risks/Benef Reviewed Patient Risk: Low Procedure Risk: Low Anesthetic Plan Anesthetic Plan: GA and Agree w/ Assess. and Plan Disposition: Standard PACU
--- NOTE | 2025-01-24 07:36 | HO.ECTPROC ---
ECT Procedure Note Diagnosis/Treatment Date of Service: 01/24/25 Diagnosis: Major Depressive Disorder Current Treatment Number: 1 Treatment: Series Interval Clinical Notes: Patient able to give informed consent 1st treatment completed without difficulty Time: Total time managing care of this patient today _30___ minutes. ECT Settings Device: THYMATRON DGx Electrode Placement: Right Unilateral Program/Pulse Width: 0.50 Energy Percent: 100 Seizure Duration By EEG (in seconds): 36 Medications Administration General Anesthetic: Etomidate (14) Muscle Relaxant: Succinylcholine (100) Airway Management Airway Management: Bag Mask Ventilation Treatment Recommendations No Changes Recommended: No change Pt Tolerated Procedure w/o Issue: Yes
--- NOTE | 2025-01-24 07:57 | HO.POSTANES ---
Post Anesthesia Evaluation Post Anesthesia Evaluation Date of Service: 01/24/25 Vital Signs: Vital Signs Temp Pulse Resp BP Pulse Ox O2 Del Method O2 Flow Rate 01/24/25 07:56 91 15 139/78 96 Room Air 01/24/25 07:51 97.4 F 86 14 141/86 H 97 Simple Mask 6 01/24/25 06:49 97 F 57 18 116/60 97 Room Air 01/23/25 20:00 97.7 F 67 136/85 96 Room Air Anesthesia: General Mental Status: Awake Pain Control: Satisfactory Nausea/Vomiting: None Hydration: Adequate Anesthesia-Related Issues: No Anes. Related Issues
--- NOTE | 2025-01-24 10:00 | P.PNPSI_ITS ---
Subjective Subjective Date of Service: 01/24/25 Reason For Visit: SI Interim History: met with patient; discussed with team met with patient post ECT; he feels his thinking is a little cloudy and his muscles are sore; wants to continue with ECT. Remains depressed and anxious Mental Status Exam Mental Status Exam Narrative: Pt is alert and oriented; behavior is cooperative, calm, mostly keeping to himself, patient is not in distress; dressed in casual attire with unkempt hair but adequate hygiene; mood remains depressed and anxious and affect congruent; eye contact adequate; Speech is normal rate, volume and prosody and not pressured; remains with psychomotor retardation present; thought process is organized and goal directed; Thought content is on hopelessness; otherwise pertinent to relevant topics and without any delusional content, paranoid ideations or grandiosity; intermittent passive SI; Denies AVH and there is no evidence of perceptual disturbance. Patients insight and judgment fair. Diagnostics Vital Signs (24Hr): Vital Signs - 24 hr 01/23/25 20:00 01/24/25 06:49 01/24/25 07:51 Temperature 97.7 F 97 F 97.4 F Pulse Rate 67 57 86 Respiratory Rate 18 14 Blood Pressure 136/85 116/60 141/86 H Pulse Oximetry 96 97 97 Oxygen Delivery Method Room Air Room Air Simple Mask Oxygen Flow Rate 6 01/24/25 07:56 01/24/25 08:01 01/24/25 08:06 Temperature Pulse Rate 91 95 85 Respiratory Rate 15 13 14 Blood Pressure 139/78 118/66 132/77 Pulse Oximetry 96 95 93 Oxygen Delivery Method Room Air Room Air Room Air Oxygen Flow Rate 01/24/25 08:21 Temperature 97.5 F Pulse Rate 75 Respiratory Rate 16 Blood Pressure 134/66 Pulse Oximetry 94 Oxygen Delivery Method Room Air Oxygen Flow Rate BMI result Body Mass Index 27.9 Labs 01/19/25 14:56 01/21/25 08:46 Medications Medications Current Medications Acetaminophen (Acetaminophen 325 Mg Tablet) 650 mg PO Q6H PRN PRN Reason: Headache/Pain, Scale 1-10 Last Admin: 01/24/25 09:36 Dose: 650 mg Al Hydroxide/Mg Hydroxide (Magnesium Hydrox/Alum Hydrox 30 Ml Oral.Susp) 30 ml PO Q6H PRN PRN Reason: Heartburn/Nausea Alprazolam (Alprazolam 0.5 Mg Tablet) 1 mg PO TID PRN PRN Reason: severe anxiety Last Admin: 01/23/25 20:33 Dose: 1 mg Hydroxyzine HCl (Hydroxyzine Hcl 25 Mg Tablet) 25 mg PO Q6H PRN PRN Reason: mild anxiety Last Admin: 01/21/25 05:20 Dose: 25 mg Lamotrigine (Lamotrigine 100 Mg Tablet) 150 mg PO MoWeFrSa@0900 FLAVIO Magnesium Hydroxide (Milk Of Magnesia 30 Ml Oral.Susp) 30 ml PO DAILY PRN PRN Reason: Constipation Sodium Chloride (Sodium Chloride 0.65 % Nasal 44 Ml Sprbtl) 1 spray NOSTRIL-B Q1H PRN PRN Reason: dry nares Allergies Allergies Allergy/AdvReac Type Severity Reaction Status Date / Time No Known Allergies (No Known Allergy Verified 01/19/25 14:21 Allergies*) Assessment & Plan Assessment & Plan (1) MDD (major depressive disorder), recurrent severe, without psychosis: Status: Acute Code(s): F33.2 - Major depressive disorder, recurrent severe without psychotic features (2) SHALINI (generalized anxiety disorder): Status: Acute Code(s): F41.1 - Generalized anxiety disorder (3) Attention and concentration deficit: Status: Acute Code(s): R41.840 - Attention and concentration deficit (4) Sleep apnea in adult: Status: Acute Code(s): G47.30 - Sleep apnea, unspecified Plan HPI: Pt is a 54 yo male with severe treatment-resistant MDD, SHALINI, ADHDand JUANPABLO, who presents to inpatient unit for ECT. PT reports numerous failed medication trials, including TMSx2. Depression has been getting worse over the past 2 months and he is now having to take a leave from work. Pt worsening depression includes diminished interest, increased guilt, diminished energy, not taking care of ADL's and passive SI. Depression coincides with several psychosocial stressors including his fathers this spring, he's therapist discontinuing treatment and his wifes health issues. He endorses sometimes reading on the internet about suicide but denies any intent or plans. Failed med trials: Prozac, Zoloft, Celexa, Wellbutrin, Remeron, Effexor, Buspar, (has been on a TCA x1, cant recall) gabapentin, Lamcital, Seroquel, Zyprexa, Abilify, Risperdal, Latuda, Cymbalta; levothyroxine Ritalin and Adderall for augmentation Formulation/Plan: severe refractory depression that is worsening; passive SI; needs inpt level of care for stability. Discussed ECT and [employer] agrees that this is appropriate treatment given failed treatments and severity of depression. Hospital course: 01/22 Remains anxious and depressed; literary writer met with patient and his and discussed ECT at length, including risks/side effects; also discussed history of treatment. Patient challenged to be hopeful about anything but is hoping that ECT will be helpful. Discussed how will lower and hold dose of Lamictal day before ECT. Also discussed untreated JUANPABLO and how treated JUANPABLO can help with depression; pt will discuss further with outpt provider. 01/24 met with patient post ECT; he feels his thinking is a little cloudy and his muscles are sore; wants to continue with ECT. Remains depressed and anxious. -continue with ECT Plan; cv q15 min continue Emsam patch Lowered to Lamictal 150mg and give MWFS; Hold day before ECT ECT#1 01/24 ECT#2 pending Patient educated on: diagnosis, medication risk/benefits and ECT Informed Consent: understands Reason for continued inpatient stay Substantial Risk for: rapid decompensation and med/psych decompensation Time Spent With Patient Time: Total time managing care of this patient today ____ minutes.
[2025-01-24] MEDS: SELEGILINE TRANSDERMA (20:34)
[2025-01-25 08:00] VITALS: BP 120/78; PULSE 61; TEMP 36.6; O2SAT 98
--- NOTE | 2025-01-25 18:23 | P.PNPSI_ITS ---
Subjective Subjective Date of Service: 01/25/25 Reason For Visit: SI Interim History: met with patient; discussed with team depressed and anxious; discussed ECT and Lamictal. Pt w/ leg cramps Mental Status Exam Mental Status Exam Narrative: Pt is alert and oriented; behavior is cooperative, calm, mostly keeping to himself, patient is not in distress; dressed in casual attire with unkempt hair but adequate hygiene; mood remains depressed and anxious and affect congruent; eye contact adequate; Speech is normal rate, volume and prosody and not pressured; no psychomotor retardation present; thought process is organized and goal directed; Thought content is on hopelessness; otherwise pertinent to relevant topics and without any delusional content, paranoid ideations or grandiosity; no SI; Denies AVH and there is no evidence of perceptual disturbance. Patients insight and judgment fair. Diagnostics Vital Signs (24Hr): Vital Signs - 24 hr 01/24/25 20:00 01/25/25 08:00 Temperature 98.1 F 97.8 F Pulse Rate 68 61 Blood Pressure 137/79 120/78 Pulse Oximetry 96 98 Oxygen Delivery Method Room Air Room Air BMI result Body Mass Index 27.9 Labs 01/19/25 14:56 01/21/25 08:46 Medications Medications Current Medications Acetaminophen (Acetaminophen 325 Mg Tablet) 650 mg PO Q6H PRN PRN Reason: Headache/Pain, Scale 1-10 Last Admin: 01/25/25 02:28 Dose: 650 mg Al Hydroxide/Mg Hydroxide (Magnesium Hydrox/Alum Hydrox 30 Ml Oral.Susp) 30 ml PO Q6H PRN PRN Reason: Heartburn/Nausea Alprazolam (Alprazolam 0.5 Mg Tablet) 1 mg PO TID PRN PRN Reason: severe anxiety Last Admin: 01/25/25 13:00 Dose: 1 mg Hydroxyzine HCl (Hydroxyzine Hcl 25 Mg Tablet) 25 mg PO Q6H PRN PRN Reason: mild anxiety Last Admin: 01/21/25 05:20 Dose: 25 mg Ibuprofen (Ibuprofen 600 Mg Tablet) 600 mg PO Q8H PRN PRN Reason: leg pain Last Admin: 01/25/25 14:44 Dose: 600 mg Lamotrigine (Lamotrigine 100 Mg Tablet) 150 mg PO MoWeFrSa@0900 [facility] Last Admin: 01/24/25 09:36 Dose: 150 mg Magnesium Hydroxide (Milk Of Magnesia 30 Ml Oral.Susp) 30 ml PO DAILY PRN PRN Reason: Constipation Sodium Chloride (Sodium Chloride 0.65 % Nasal 44 Ml Sprbtl) 1 spray NOSTRIL-B Q1H PRN PRN Reason: dry nares Allergies Allergies Allergy/AdvReac Type Severity Reaction Status Date / Time No Known Allergies (No Known Allergy Verified 01/19/25 14:21 Allergies*) Assessment & Plan Assessment & Plan (1) MDD (major depressive disorder), recurrent severe, without psychosis: Status: Acute Code(s): F33.2 - Major depressive disorder, recurrent severe without psychotic features (2) SHALINI (generalized anxiety disorder): Status: Acute Code(s): F41.1 - Generalized anxiety disorder (3) Attention and concentration deficit: Status: Acute Code(s): R41.840 - Attention and concentration deficit (4) Sleep apnea in adult: Status: Acute Code(s): G47.30 - Sleep apnea, unspecified Plan HPI: Pt is a 54 yo male with severe treatment-resistant MDD, SHALINI, ADHDand JUANPABLO, who presents to inpatient unit for ECT. PT reports numerous failed medication trials, including TMSx2. Depression has been getting worse over the past 2 months and he is now having to take a leave from work. Pt worsening depression includes diminished interest, increased guilt, diminished energy, not taking care of ADL's and passive SI. Depression coincides with several psychosocial stressors including his fathers this spring, he's therapist discontinuing treatment and his wifes health issues. He endorses sometimes reading on the internet about suicide but denies any intent or plans. Failed med trials: Prozac, Zoloft, Celexa, Wellbutrin, Remeron, Effexor, Buspar, (has been on a TCA x1, cant recall) gabapentin, Lamcital, Seroquel, Zyprexa, Abilify, Risperdal, Latuda, Cymbalta; levothyroxine Ritalin and Adderall for augmentation Formulation/Plan: severe refractory depression that is worsening; passive SI; needs inpt level of care for stability. Discussed ECT and International Bank Manager agrees that this is appropriate treatment given failed treatments and severity of depression. Hospital course: 01/22 Remains anxious and depressed; staff writer met with patient and his and discussed ECT at length, including risks/side effects; also discussed history of treatment. Patient challenged to be hopeful about anything but is hoping that ECT will be helpful. Discussed how will lower and hold dose of Lamictal day before ECT. Also discussed untreated JUANPABLO and how treated JUANPABLO can help with depression; pt will discuss further with outpt provider. 01/24 met with patient post ECT; he feels his thinking is a little cloudy and his muscles are sore; wants to continue with ECT. Remains depressed and anxious. -continue with ECT 01/25 CTP Plan; cv q15 min continue Emsam patch Lowered to Lamictal 150mg and give MWFS; Hold day before ECT ECT#1 01/24 ECT#2 pending Patient educated on: diagnosis, medication risk/benefits and ECT Informed Consent: understands Reason for continued inpatient stay Substantial Risk for: stable for discharge Time Spent With Patient Time: Total time managing care of this patient today ____ minutes.
[2025-01-25 20:00] VITALS: BP 118/63; PULSE 63; RESP 16; TEMP 36.3; O2SAT 96
[2025-01-25] MEDS: SELEGILINE TRANSDERMA (21:14)
[2025-01-26] VITALS (9 sets, daily range): BP systolic 124–149; BP diastolic 56–78; PULSE 48–73; RESP 15–16; TEMP 36.2–36.9; O2SAT 94–97
--- NOTE | 2025-01-26 06:59 | HO.ANESPROP2 ---
[facility] Active Problems Active Problems: All Active Problems (Updated 01/19/25 @ 17:14 by YONI Roberts) Depression (Acute) Chronic fatigue (Acute) Low testosterone in male (Acute) Hypogonadism in male (Acute) Sleep apnea in adult (Acute) Attention and concentration deficit (Acute) MDD (major depressive disorder), recurrent severe, without psychosis (Acute) SHALINI (generalized anxiety disorder) (Acute) Major depressive disorder, recurrent, moderate (Acute) Past Medical History Medical History Acute recurrent streptococcal tonsillitis Atypical chest pain Chronic hoarseness Restless legs Allergic rhinitis GERD (gastroesophageal reflux disease) Sleep apnea Family History Family history of problems with anesthesia: No Surgical History History of Problems with Anesthesia: No Social History Social History Household Members: Spouse and Other Household Members Other:: one stepson Housing: House Do you presently have visiting nurse or other home services: No Comment: DC TBD Patient Tobacco Use Status: Former Tobacco user Tobacco use type: Cigarette Smoked in Last 30 Days: No e-Cigarette/Vaping Use: Former Use Patient Interested in Nicotine Replacement: No Use of substances other than those prescribed or required for medical reasons: No Currently Displaying Signs/Symptoms of Drug Intoxication Withdrawal: No Have you been hit, kicked, punched, or otherwise hurt by someone within the past year? If so, by whom?: No Do you feel safe in your current relationship?: Yes Is there a partner from a previous relationship who is making you feel unsafe now?: No Are you made to feel afraid or neglected: No Advance Directives: No Advance Directives Information Provided: No Do you have thoughts of harming others: None Do you have a plan to hurt others: No Plan Recently lost weight without trying: No Nutrition Risks: No Nutritional Risk Poor oral hygiene: No service: No Sexual orientation: Straight/Heterosexual Meds Allergies Allergy/AdvReac Type Severity Reaction Status Date / Time No Known Allergies (No Known Allergy Verified 01/19/25 14:21 Allergies*) Active Medications: Current Medications Acetaminophen (Acetaminophen 325 Mg Tablet) 650 mg PO Q6H PRN PRN Reason: Headache/Pain, Scale 1-10 Last Admin: 01/25/25 02:28 Dose: 650 mg Al Hydroxide/Mg Hydroxide (Magnesium Hydrox/Alum Hydrox 30 Ml Oral.Susp) 30 ml PO Q6H PRN PRN Reason: Heartburn/Nausea Alprazolam (Alprazolam 0.5 Mg Tablet) 1 mg PO TID PRN PRN Reason: severe anxiety Last Admin: 01/25/25 18:49 Dose: 1 mg Hydroxyzine HCl (Hydroxyzine Hcl 25 Mg Tablet) 25 mg PO Q6H PRN PRN Reason: mild anxiety Last Admin: 01/21/25 05:20 Dose: 25 mg Lactated Ringer's (Lr) 1,000 mls @ 50 mls/hr IVCONT .Q20H FLAVIO Ibuprofen (Ibuprofen 600 Mg Tablet) 600 mg PO Q8H PRN PRN Reason: leg pain Last Admin: 01/25/25 21:31 Dose: 600 mg Lamotrigine (Lamotrigine 100 Mg Tablet) 150 mg PO MoWeFrSa@0900 FLAVIO Last Admin: 01/24/25 09:36 Dose: 150 mg Magnesium Hydroxide (Milk Of Magnesia 30 Ml Oral.Susp) 30 ml PO DAILY PRN PRN Reason: Constipation Naloxone HCl (Naloxone Hcl 0.4 Mg/Ml Vial) 0.04 mg IVPUSH Q5M PRN PRN Reason: Excessive sedation or RR < 8 Sodium Chloride (Sodium Chloride 0.65 % Nasal 44 Ml Sprbtl) 1 spray NOSTRIL-B Q1H PRN PRN Reason: dry nares Home Medications ?Medication ?Instructions ?Recorded ?Confirmed ?Last Taken ?Type alprazolam 1 mg tablet 1 mg PO TID PRN anxiety 12/22/24 01/19/25 Unknown History lamotrigine 200 mg tablet 200 mg PO DAILY 12/22/24 01/19/25 Unknown History selegiline 6 mg/24 hr transdermal 6 mg transdermal DAILY 01/10/25 01/19/25 1 Day Ago History 24 hour patch (Emsam) ~01/18/25 Exam Height,Weight and Vital Signs: Height 6 ft 3 in Weight 101.4 kg Last Vital Signs Temp 97.3 F 01/26/25 06:24 Pulse 59 01/26/25 06:24 Resp 15 01/26/25 06:24 BP 138/56 L 01/26/25 06:24 Pulse Ox 94 01/26/25 06:24 O2 Del Method Room Air 01/26/25 06:24 O2 Flow Rate 6 01/24/25 07:51 Pertinent Lab Results Pertinent Lab Results: Laboratory Tests 01/19/25 01/19/25 01/21/25 14:56 15:03 08:46 WBC 6.6 RBC 5.19 Hgb 15.6 Hct 44.6 MCV 85.9 MCH 30.1 MCHC 35.0 RDW 12.4 Plt Count 191 MPV 9.5 Immature Gran % (Auto) 0.5 H Neut % (Auto) 56.4 Lymph % (Auto) 35.3 [place] % (Auto) 6.2 Eos % (Auto) 1.1 Baso % (Auto) 0.5 Lymph # (Auto) 2.3 [place] # (Auto) 0.4 Eos # (Auto) 0.1 Baso # (Auto) 0.0 Abs Immat Gran (auto) 0.03 Absolute Neuts (auto) 3.7 Absolute Nucleated RBC 0.000 Nucleated RBC % (auto) 0.0 Sodium 142 142 Potassium 3.8 3.8 Chloride 108 109 H Carbon Dioxide 26 28 Anion Gap 12 9 L BUN 16 13 Creatinine 1.21 1.13 Estim Creat Clear Calc 66.3 88.2 Estimated GFR > 60 > 60 Random Glucose 127 H 103 Estimat Average Glucose 108 Hemoglobin A1c % 5.4 Calcium 9.1 9.2 Total Bilirubin 0.5 1.0 AST 30 26 ALT 33 29 Alkaline Phosphatase 45 46 Total Protein 7.3 7.4 Albumin 4.5 4.6 Triglycerides 96 Cholesterol 201 H LDL Cholesterol, Calc 139 H HDL Cholesterol 43 TSH 1.01 Urine Color Yellow Urine Appearance Clear Urine pH 6.5 Ur Specific Martha 1.010 Urine Protein Negative Urine Glucose (UA) Negative Urine Ketones Negative Urine Blood Negative Urine Nitrite Negative Ur Leukocyte Esterase Negative Urine Opiates Screen Not Detected Ur Buprenorphine Scrn Not Detected Ur Oxycodone Screen Not Detected Urine Methadone Screen Not Detected Urine Fentanyl Screen Not Detected Ur Barbiturates Screen Not Detected Ur Phencyclidine Scrn Not Detected Ur Amphetamines Screen Not Detected U Benzodiazepines Scrn POSITIVE H Urine Cocaine Screen Not Detected U Marijuana (THC) Screen Not Detected Ethyl Alcohol < 10 Airway Mallampati Class: II TM Dist: >3cm Neck ROM: Full Heart: rrr Lungs: cta Assessment and Plan Assessment Anesthesia Assessment: Anesthesia Plan Discussed and Chart Reviewed Final Anesthetic Review Family History of Problems with Anesthesia: No History of Problems with Anesthesia: No NPO: Yes ASA Class: III and Final Preanesthetic Review: No Changes in Pt Med Stat, Meds/Allgs Chart Reviewed and Consent Obtained/Reviewed Patient Risk: Intermediate Procedure Risk: Intermediate Anesthetic Plan Anesthetic Plan: GA Disposition: Standard PACU
--- NOTE | 2025-01-26 08:03 | MHC.SHP ---
Pre-Procedural Eval Section A - 24 Hr Update-Section A only Date of Service: 01/26/25 The patient is an INPATIENT: Yes Changes since office visit: Yes Changes in Medication and Yes Patient answered all questions; No Cold of Flu in the past 2 weeks and No New Medical Problems The patient has been examined within 24 hours of the surgical procedure. The History & Physical has been completed within 30 days and I have reviewed it.: Yes Section B - Complete if H&P > 30 days Chief Complaint: SI Allergies: Allergies Allergy/AdvReac Type Severity Reaction Status Date / Time No Known Allergies (No Known Allergy Verified 01/19/25 14:21 Allergies*) Plan I have reviewed the history and physical and performed a pertinent physical examination on my patient. No changes have occurred unless specified. Time Spent With Patient Time: Total time managing care of this patient today ____ minutes.
--- NOTE | 2025-01-26 08:18 | HO.ECTPROC ---
ECT Procedure Note Diagnosis/Treatment Date of Service: 01/26/25 Diagnosis: Major Depressive Disorder Previous ECT Date: 01/24/25 Current Treatment Number: 2 Treatment: Series Interval Clinical Notes: pt c/o muscle pain no change in mood Time: Total time managing care of this patient today ____ minutes. ECT Settings Device: THYMATRON DGx Electrode Placement: Right Unilateral Program/Pulse Width: 0.50 Energy Percent: 100 Seizure Duration By EEG (in seconds): 36 Medications Administration General Anesthetic: Etomidate (14) Muscle Relaxant: Succinylcholine (80) and Rocuronium (5) Airway Management Airway Management: Bag Mask Ventilation (non rebreather) Treatment Recommendations Notes: consider oxycodone given gabino to dec muscle pain Pt Tolerated Procedure w/o Issue: Yes
[2025-01-26] MEDS: SELEGILINE TRANSDERMA (20:00)
--- NOTE | 2025-01-26 22:31 | P.PNPSI_ITS ---
Subjective Subjective Date of Service: 01/26/25 Reason For Visit: SI Interim History: met with pt; discussed with team little brighter; anxious. leg cramps and agrees to try baclofen Mental Status Exam Mental Status Exam Narrative: Pt is alert and oriented; behavior is cooperative, calm, mostly keeping to himself, patient is not in distress; dressed in casual attire with unkempt hair but adequate hygiene; mood remains depressed and anxious but affect brighter; eye contact adequate; Speech is normal rate, volume and prosody and not pressured; no psychomotor retardation present; thought process is organized and goal directed; Thought content is on hopelessness; otherwise pertinent to relevant topics and without any delusional content, paranoid ideations or grandiosity; no SI; Denies AVH and there is no evidence of perceptual disturbance. Patients insight and judgment fair. Diagnostics Vital Signs (24Hr): Vital Signs - 24 hr 01/26/25 06:24 01/26/25 08:01 01/26/25 08:05 Temperature 97.3 F 98.5 F Pulse Rate 59 48 L 68 Respiratory Rate 15 16 16 Blood Pressure 138/56 L 131/59 L 135/73 Pulse Oximetry 94 97 97 Oxygen Delivery Method Room Air Nasal Cannula with ETCO2 Nasal Cannula with ETCO2 Oxygen Flow Rate 2 2 01/26/25 08:10 01/26/25 08:30 01/26/25 08:45 Temperature Pulse Rate 73 66 63 Respiratory Rate 16 16 16 Blood Pressure 139/76 127/75 149/78 H Pulse Oximetry 97 97 96 Oxygen Delivery Method Nasal Cannula with ETCO2 Nasal Cannula with ETCO2 Oxygen Flow Rate 2 2 01/26/25 09:26 01/26/25 09:29 01/26/25 19:47 Temperature 97.2 F 97.2 F 98.5 F Pulse Rate 65 65 72 Respiratory Rate 16 16 Blood Pressure 134/76 134/76 124/58 L Pulse Oximetry 97 97 97 Oxygen Delivery Method Room Air Room Air Oxygen Flow Rate BMI result Body Mass Index 27.9 Labs 01/19/25 14:56 01/21/25 08:46 Medications Medications Current Medications Acetaminophen (Acetaminophen 325 Mg Tablet) 650 mg PO Q6H PRN PRN Reason: Headache/Pain, Scale 1-10 Last Admin: 01/25/25 02:28 Dose: 650 mg Al Hydroxide/Mg Hydroxide (Magnesium Hydrox/Alum Hydrox 30 Ml Oral.Susp) 30 ml PO Q6H PRN PRN Reason: Heartburn/Nausea Alprazolam (Alprazolam 0.5 Mg Tablet) 1 mg PO TID PRN PRN Reason: severe anxiety Last Admin: 01/26/25 20:00 Dose: 1 mg Baclofen (Baclofen 10 Mg Tablet) 5 mg PO TID [facility] Last Admin: 01/26/25 20:01 Dose: 5 mg Hydroxyzine HCl (Hydroxyzine Hcl 25 Mg Tablet) 25 mg PO Q6H PRN PRN Reason: mild anxiety Last Admin: 01/21/25 05:20 Dose: 25 mg Ibuprofen (Ibuprofen 600 Mg Tablet) 600 mg PO Q8H PRN PRN Reason: leg pain Last Admin: 01/26/25 12:00 Dose: 600 mg Lamotrigine (Lamotrigine 100 Mg Tablet) 150 mg PO MoWeFrSa@0900 [facility] Last Admin: 01/26/25 09:40 Dose: 150 mg Magnesium Hydroxide (Milk Of Magnesia 30 Ml Oral.Susp) 30 ml PO DAILY PRN PRN Reason: Constipation Naloxone HCl (Naloxone Hcl 0.4 Mg/Ml Vial) 0.04 mg IVPUSH Q5M PRN PRN Reason: Excessive sedation or RR < 8 Sodium Chloride (Sodium Chloride 0.65 % Nasal 44 Ml Sprbtl) 1 spray NOSTRIL-B Q1H PRN PRN Reason: dry nares Allergies Allergies Allergy/AdvReac Type Severity Reaction Status Date / Time No Known Allergies (No Known Allergy Verified 01/19/25 14:21 Allergies*) Assessment & Plan Assessment & Plan (1) MDD (major depressive disorder), recurrent severe, without psychosis: Status: Acute Code(s): F33.2 - Major depressive disorder, recurrent severe without psychotic features (2) SHALINI (generalized anxiety disorder): Status: Acute Code(s): F41.1 - Generalized anxiety disorder (3) Attention and concentration deficit: Status: Acute Code(s): R41.840 - Attention and concentration deficit (4) Sleep apnea in adult: Status: Acute Code(s): G47.30 - Sleep apnea, unspecified Plan HPI: Pt is a 54 yo male with severe treatment-resistant MDD, SHALINI, ADHDand JUANPABLO, who presents to inpatient unit for ECT. PT reports numerous failed medication trials, including TMSx2. Depression has been getting worse over the past 2 months and he is now having to take a leave from work. Pt worsening depression includes diminished interest, increased guilt, diminished energy, not taking care of ADL's and passive SI. Depression coincides with several psychosocial stressors including his fathers this spring, he's therapist discontinuing treatment and his wifes health issues. He endorses sometimes reading on the internet about suicide but denies any intent or plans. Failed med trials: Prozac, Zoloft, Celexa, Wellbutrin, Remeron, Effexor, Buspar, (has been on a TCA x1, cant recall) gabapentin, Lamcital, Seroquel, Zyprexa, Abilify, Risperdal, Latuda, Cymbalta; levothyroxine Ritalin and Adderall for augmentation Formulation/Plan: severe refractory depression that is worsening; passive SI; needs inpt level of care for stability. Discussed ECT and Infrastructure Manager agrees that this is appropriate treatment given failed treatments and severity of depression. Hospital course: 01/22 Remains anxious and depressed; keno writer met with patient and his and discussed ECT at length, including risks/side effects; also discussed history of treatment. Patient challenged to be hopeful about anything but is hoping that ECT will be helpful. Discussed how will lower and hold dose of Lamictal day before ECT. Also discussed untreated JUANPABLO and how treated JUANPABLO can help with depression; pt will discuss further with outpt provider. 01/24 met with patient post ECT; he feels his thinking is a little cloudy and his muscles are sore; wants to continue with ECT. Remains depressed and anxious. -continue with ECT 01/25 CTP 01/26 Baclofen for leg cramps Plan; cv q15 min continue Emsam patch Lowered to Lamictal 150mg and give MWFS; Hold day before ECT ECT#1 01/24 ECT#2 01/26 ECT #3 pending Patient educated on: diagnosis, medication risk/benefits and ECT Informed Consent: understands Reason for continued inpatient stay Substantial Risk for: stable for discharge Time Spent With Patient Time: Total time managing care of this patient today ____ minutes.
--- NOTE | 2025-01-27 09:51 | HO.PSYCHPN ---
Subjective Subjective Date of Service: 01/27/25 Reason For Visit: SI Subjective Notes: Conditional Voluntary Interim History: Patient unable to describe his mood and unable to see whether ECT has been effective. However, he notes that staff, including his social media coordinator have noticed significant improvement in his mood. Sleep is adequate. He has had 2 ECT so far. He notes cramps and aches to his calves with standing and walking, since he had ECT, baclofen helps. He is ready for discharge tomorrow. The plan is to follow-up for outpatient ECT. He currently denies anxiety and depression. He denies SI/HI/AH/VH. Medication Compliance: Yes Side effects from medications: No Attending Groups: Intermittent Review of Systems Acute medical concerns: Yes Musc: Cramps and aches to bilateral calf Mental Status Exam Mental Status Exam Narrative: Appearance: Casually dressed, adequate hygiene and grooming Behavior: Calm and cooperative throughout the interview. Eye contact is appropriate, and there are no signs of psychomotor agitation or retardation Speech: Normal volume and prosody Thought process: Logical and goal-directed Thought content: Future oriented no self-harming thoughts Mood: Calm Affect: Constricted SI:denies HI:denies VH/AH:none Delusions: None Insight/judgment: Fair insight and judgment Memory/cog: Alert, oriented x 4. grossly intact to conversational testing Diagnostics Vital Signs (24Hr): Vital Signs - 24 hr 01/26/25 19:47 Temperature 98.5 F Pulse Rate 72 Blood Pressure 124/58 L Pulse Oximetry 97 Oxygen Delivery Method Room Air BMI result Body Mass Index 27.9 Labs 01/19/25 14:56 01/21/25 08:46 Medications Medications Current Medications Acetaminophen (Acetaminophen 325 Mg Tablet) 650 mg PO Q6H PRN PRN Reason: Headache/Pain, Scale 1-10 Last Admin: 01/25/25 02:28 Dose: 650 mg Al Hydroxide/Mg Hydroxide (Magnesium Hydrox/Alum Hydrox 30 Ml Oral.Susp) 30 ml PO Q6H PRN PRN Reason: Heartburn/Nausea Alprazolam (Alprazolam 0.5 Mg Tablet) 1 mg PO TID PRN PRN Reason: severe anxiety Last Admin: 01/26/25 20:00 Dose: 1 mg Baclofen (Baclofen 10 Mg Tablet) 5 mg PO TID PRN PRN Reason: muscle aches Last Admin: 01/27/25 06:51 Dose: 5 mg Hydroxyzine HCl (Hydroxyzine Hcl 25 Mg Tablet) 25 mg PO Q6H PRN PRN Reason: mild anxiety Last Admin: 01/21/25 05:20 Dose: 25 mg Ibuprofen (Ibuprofen 600 Mg Tablet) 600 mg PO Q8H PRN PRN Reason: leg pain Last Admin: 01/26/25 12:00 Dose: 600 mg Lamotrigine (Lamotrigine 100 Mg Tablet) 150 mg PO MoWeFrSa@0900 [facility] Last Admin: 01/26/25 09:40 Dose: 150 mg Magnesium Hydroxide (Milk Of Magnesia 30 Ml Oral.Susp) 30 ml PO DAILY PRN PRN Reason: Constipation Naloxone HCl (Naloxone Hcl 0.4 Mg/Ml Vial) 0.04 mg IVPUSH Q5M PRN PRN Reason: Excessive sedation or RR < 8 Sodium Chloride (Sodium Chloride 0.65 % Nasal 44 Ml Sprbtl) 1 spray NOSTRIL-B Q1H PRN PRN Reason: dry nares Allergies Allergies Allergy/AdvReac Type Severity Reaction Status Date / Time No Known Allergies (No Known Allergy Verified 01/19/25 14:21 Allergies*) Assessment & Plan Assessment & Plan (1) MDD (major depressive disorder), recurrent severe, without psychosis: Status: Acute Code(s): F33.2 - Major depressive disorder, recurrent severe without psychotic features (2) SHALINI (generalized anxiety disorder): Status: Acute Code(s): F41.1 - Generalized anxiety disorder (3) Attention and concentration deficit: Status: Acute Code(s): R41.840 - Attention and concentration deficit (4) Sleep apnea in adult: Status: Acute Code(s): G47.30 - Sleep apnea, unspecified Plan HPI: Pt is a 54 yo male with severe treatment-resistant MDD, SHALINI, ADHDand JUANPABLO, who presents to inpatient unit for ECT. PT reports numerous failed medication trials, including TMSx2. Depression has been getting worse over the past 2 months and he is now having to take a leave from work. Pt worsening depression includes diminished interest, increased guilt, diminished energy, not taking care of ADL's and passive SI. Depression coincides with several psychosocial stressors including his fathers this spring, he's therapist discontinuing treatment and his wifes health issues. He endorses sometimes reading on the internet about suicide but denies any intent or plans. Failed med trials: Prozac, Zoloft, Celexa, Wellbutrin, Remeron, Effexor, Buspar, (has been on a TCA x1, cant recall) gabapentin, Lamcital, Seroquel, Zyprexa, Abilify, Risperdal, Latuda, Cymbalta; levothyroxine Ritalin and Adderall for augmentation Formulation/Plan: severe refractory depression that is worsening; passive SI; needs inpt level of care for stability. Discussed ECT and Snow Removing Supervisor agrees that this is appropriate treatment given failed treatments and severity of depression. Hospital course: 01/22 Remains anxious and depressed; chief underwriter met with patient and his and discussed ECT at length, including risks/side effects; also discussed history of treatment. Patient challenged to be hopeful about anything but is hoping that ECT will be helpful. Discussed how will lower and hold dose of Lamictal day before ECT. Also discussed untreated JUANPABLO and how treated JUANPABLO can help with depression; pt will discuss further with outpt provider. 01/24 met with patient post ECT; he feels his thinking is a little cloudy and his muscles are sore; wants to continue with ECT. Remains depressed and anxious. -continue with ECT 01/27: Baclofen increased to 10 mg 3 times daily as needed for cramps and aches to calves. Continue current treatment regimen. Ready for discharge on 01/28/2025. Plan; cv q15 min continue Emsam patch Lowered to Lamictal 150mg and give MWFS; Hold day before ECT ECT#1 01/24 ECT#2 pending Patient educated on: medication risk/benefits (Verbalized understanding and agrees with the plan) and therapeutic strategies Reason for continued inpatient stay Substantial Risk for: stable for discharge Time Spent With Patient Time: Total time managing care of this patient today ____ minutes.
[2025-01-27 20:26] VITALS: BP 148/91; PULSE 61; RESP 18; TEMP 35.9; O2SAT 96
[2025-01-27] MEDS: SELEGILINE TRANSDERMA (20:40)
[2025-01-28] VITALS (7 sets, daily range): BP systolic 124–140; BP diastolic 66–81; PULSE 57–72; RESP 16–18; TEMP 36.4–36.8; O2SAT 96–99
--- NOTE | 2025-01-28 05:51 | PM.PSYDC ---
DS: Providers Provider Date of Service: 01/28/25 Date of admission: 01/20/25 13:13 Date of discharge: 02/09/25 Primary care physician: Sanjiv Del Real MD Admitting clinician: Arnold Forbes Attending physician on admission: Arnold Forbes Consults: 01/21/25 15:30 Consult to Hospitalist Routine Comment: Consulting Provider: [facility] Hospitalists Reason For Exam: ECT clearance Attending physician on discharge: Rodrick Suh Discharging clinician: Shena Da Silva DS: Diagnosis Discharge Diagnosis (1) MDD (major depressive disorder), recurrent severe, without psychosis: Status: Acute (2) SHALINI (generalized anxiety disorder): Status: Acute (3) Attention and concentration deficit: Status: Acute (4) Sleep apnea in adult: Status: Acute DS: Medications Discharge Medications Home Medications: Home Medications ?Medication ?Instructions ?Recorded ?Confirmed alprazolam 1 mg tablet 1 mg PO TID PRN anxiety 12/22/24 01/19/25 Previous Rx's ?Medication ?Instructions ?Recorded alprazolam 0.5 mg tablet 1 mg (2 x 0.5 mg) PO TID PRN 01/27/25 severe anxiety #0 tabs baclofen 10 mg tablet 10 mg PO TID PRN muscle aches #21 01/27/25 tabs lamotrigine 100 mg tablet 150 mg (1.5 x 100 mg) PO 01/27/25 MoWeFrSa@0900 #30 tabs selegiline 6 mg/24 hr transdermal 6 mg transdermal BEDTIME #30 ea 01/27/25 24 hour patch (Emsam) Mental Status Exam Mental Status Exam Narrative: Appearance: Casually dressed, adequate hygiene and grooming Behavior: Calm and cooperative throughout the interview. Eye contact is appropriate, and there are no signs of psychomotor agitation or retardation Speech: Normal volume and prosody Thought process: Logical and goal-directed Thought content: Future oriented no self-harming thoughts Mood: Calm Affect: Constricted SI:denies HI:denies VH/AH:none Delusions: None Insight/judgment: Fair insight and judgment Memory/cog: Alert, oriented x 4. grossly intact to conversational testing Data Data Completed and Pending Completed studies during hospitalization [Text1]: 01/21/25 08:46 Sodium 142 Potassium 3.8 Chloride 109 H Carbon Dioxide 28 Anion Gap 9 L BUN 13 Creatinine 1.13 Estim Creat Clear Calc 88.2 Estimated GFR > 60 Random Glucose 103 Estimat Average Glucose 108 Hemoglobin A1c % 5.4 Calcium 9.2 Total Bilirubin 1.0 AST 26 ALT 29 Alkaline Phosphatase 46 Total Protein 7.4 Albumin 4.6 Triglycerides 96 Cholesterol 201 H LDL Cholesterol, Calc 139 H HDL Cholesterol 43 TSH 1.01 DS: Summary Hospital Course Hospital Course: HPI: Pt is a 54 yo male with severe treatment-resistant MDD, SHALINI, ADHDand JUANPABLO, who presents to inpatient unit for ECT. PT reports numerous failed medication trials, including TMSx2. Depression has been getting worse over the past 2 months and he is now having to take a leave from work. Pt worsening depression includes diminished interest, increased guilt, diminished energy, not taking care of ADL's and passive SI. Depression coincides with several psychosocial stressors including his fathers this spring, he's therapist discontinuing treatment and his wifes health issues. He endorses sometimes reading on the internet about suicide but denies any intent or plans. Failed med trials: Prozac, Zoloft, Celexa, Wellbutrin, Remeron, Effexor, Buspar, (has been on a TCA x1, cant recall) gabapentin, Lamcital, Seroquel, Zyprexa, Abilify, Risperdal, Latuda, Cymbalta; levothyroxine Ritalin and Adderall for augmentation Formulation/Plan: severe refractory depression that is worsening; passive SI; needs inpt level of care for stability. Discussed ECT and Refueling Rampman agrees that this is appropriate treatment given failed treatments and severity of depression. Hospital course: 01/22 Remains anxious and depressed; financial underwriter met with patient and his and discussed ECT at length, including risks/side effects; also discussed history of treatment. Patient challenged to be hopeful about anything but is hoping that ECT will be helpful. Discussed how will lower and hold dose of Lamictal day before ECT. Also discussed untreated JUANPABLO and how treated JUANPABLO can help with depression; pt will discuss further with outpt provider. 01/24 met with patient post ECT; he feels his thinking is a little cloudy and his muscles are sore; wants to continue with ECT. Remains depressed and anxious. -continue with ECT 01/25 CTP 01/26 Baclofen for leg cramps 01/27: Baclofen increased to 10 mg 3 times daily as needed for cramps and aches to calves. Continue current treatment regimen. Ready for discharge on 01/28/2025. Status at Discharge Functional status at discharge: independent ambulation Overall status at discharge: patient is back to baseline Time Spent with Patient Time attestation: Total time managing care of this patient today ____ minutes. Discharge Plan Discharge Anticipated Discharge Date/Time: 01/28/25 11:30 Patient Disposition: Home, Self-Care Discharge Diagnosis: MDD, SHALINI, Sleep apnea Referrals: [facility] [Other] - 02/01/25 4:20 pm Referral Note: You have an upcoming appointment with Dr. Oriana Berman for medication management purposes. [facility] [Other] - 02/03/25 1:00 pm Referral Note: Follow-up appointment with Emily Meier (In office appointment) Sanjiv Del Real MD [Primary Care Provider, Internal Medicine] - 1 Week Discharge Medications: New baclofen 10 mg Tablet 10 mg PO TID PRN (Reason: muscle aches) Qty: 21 0RF alprazolam 0.5 mg Tablet 1 mg PO TID PRN (Reason: severe anxiety) Qty: 0 0RF lamotrigine 100 mg Tablet 150 mg PO MoWeFrSa@0900 Qty: 30 0RF Continued alprazolam 1 mg tablet 1 mg PO TID PRN (Reason: anxiety) Changed Emsam 6 mg/24 hr Patch 24 Hour 6 mg TRANSDERMAL BEDTIME Qty: 30 0RF Discontinued lamotrigine 200 mg tablet 200 mg PO DAILY Discharge Orders: Discharge Order (Routine); Ordered 01/28/25 Ordered By: Shena Da Silva Diet: Advance to usual diet Activity on Discharge: As tolerated Stand Alone Forms: Patient Portal Discharge page, Community Support Print Language: Cameroonian Care Plan Goals: Maintain mood and safe behaviors Take medications as prescribed Practice coping skills Continue with outpatient providers and reach out to them as needed Health Concerns: Mood stability and behaviors Plan of Treatment: Follow up with your PCP, psychiatric provider and other outpatient providers regarding above concerns Take medications as prescribed Follow up for outpatient ECT as planned Assessment: Risk assessment at time of discharge:? Patient was interviewed prior to discharge and found to be fully oriented and without any SI or HI. Patient has improved insight and judgment and wants to continue treatment. Patient is not in imminent risk of harm to self or others and has a safety plan that includes presenting to the closest ER or calling 911 if feeling unsafe.? Patient has been observed closely by nursing and unit staff throughout admission; patient has not engaged in any behaviors that suggest dangerousness to self or others and has demonstrated appropriate behaviors and impulse control
--- NOTE | 2025-01-28 10:03 | PM.PSYDC ---
DS: Providers Provider Date of Service: 01/28/25 Date of admission: 01/20/25 13:13 Date of discharge: 01/28/25 Primary care physician: Sanjiv Del Real MD Attending physician on admission: Arnold Forbes Consults: 01/21/25 15:30 Consult to Hospitalist Routine Comment: Consulting Provider: [facility] Reason For Exam: ECT clearance Attending physician on discharge: Arnold Forbes DS: Diagnosis Discharge Diagnosis (1) MDD (major depressive disorder), recurrent severe, without psychosis: Status: Acute (2) SHALINI (generalized anxiety disorder): Status: Acute (3) Attention and concentration deficit: Status: Acute (4) Sleep apnea in adult: Status: Acute DS: Medications Discharge Medications Home Medications: Home Medications ?Medication ?Instructions ?Recorded ?Confirmed alprazolam 1 mg tablet 1 mg PO TID PRN anxiety 12/22/24 01/19/25 Previous Rx's ?Medication ?Instructions ?Recorded alprazolam 0.5 mg tablet 1 mg (2 x 0.5 mg) PO TID PRN 01/27/25 severe anxiety #0 tabs baclofen 10 mg tablet 10 mg PO TID PRN muscle aches #21 01/27/25 tabs lamotrigine 100 mg tablet 150 mg (1.5 x 100 mg) PO 01/27/25 MoWeFrSa@0900 #30 tabs selegiline 6 mg/24 hr transdermal 6 mg transdermal BEDTIME #30 ea 01/27/25 24 hour patch (Emsam) DS: Summary Hospital Course Hospital Course: HPI: Pt is a 54 yo male with severe treatment-resistant MDD, SHALINI, ADHDand JUANPABLO, who presents to inpatient unit for ECT. PT reports numerous failed medication trials, including TMSx2. Depression has been getting worse over the past 2 months and he is now having to take a leave from work. Pt worsening depression includes diminished interest, increased guilt, diminished energy, not taking care of ADL's and passive SI. Depression coincides with several psychosocial stressors including his fathers this spring, he's therapist discontinuing treatment and his wifes health issues. He endorses sometimes reading on the internet about suicide but denies any intent or plans. Failed med trials: Prozac, Zoloft, Celexa, Wellbutrin, Remeron, Effexor, Buspar, (has been on a TCA x1, cant recall) gabapentin, Lamcital, Seroquel, Zyprexa, Abilify, Risperdal, Latuda, Cymbalta; levothyroxine Ritalin and Adderall for augmentation Formulation/Plan: severe refractory depression that is worsening; passive SI; needs inpt level of care for stability. Discussed ECT and [facility] Director agrees that this is appropriate treatment given failed treatments and severity of depression. Hospital course: 01/22 Remains anxious and depressed; mortgage loan underwriter met with patient and his and discussed ECT at length, including risks/side effects; also discussed history of treatment. Patient challenged to be hopeful about anything but is hoping that ECT will be helpful. Discussed how will lower and hold dose of Lamictal day before ECT. Also discussed untreated JUANPABLO and how treated JUANPABLO can help with depression; pt will discuss further with outpt provider. 01/24 met with patient post ECT; he feels his thinking is a little cloudy and his muscles are sore; wants to continue with ECT. Remains depressed and anxious. -continue with ECT 01/25 CTP 01/26 Baclofen for leg cramps 01/27: Baclofen increased to 10 mg 3 times daily as needed for cramps and aches to calves. Continue current treatment regimen. Ready for discharge on 01/28/2025. Time Spent with Patient Time attestation: Total time managing care of this patient today ____ minutes. Discharge Plan Discharge Anticipated Discharge Date/Time: 01/28/25 11:30 Patient Disposition: Home, Self-Care Discharge Diagnosis: MDD, SHALINI, Sleep apnea Referrals: [facility] [Other] - 02/01/25 4:20 pm Referral Note: You have an upcoming appointment with Dr. Oriana Berman for medication management purposes. [facility] [Other] - 02/03/25 1:00 pm Referral Note: Follow-up appointment with Emily Meier (In office appointment) Sanjiv Del Real MD [Primary Care Provider, Internal Medicine] - 1 Week Discharge Medications: New baclofen 10 mg Tablet 10 mg PO TID PRN (Reason: muscle aches) Qty: 21 0RF alprazolam 0.5 mg Tablet 1 mg PO TID PRN (Reason: severe anxiety) Qty: 0 0RF lamotrigine 100 mg Tablet 150 mg PO MoWeFrSa@0900 Qty: 30 0RF Continued alprazolam 1 mg tablet 1 mg PO TID PRN (Reason: anxiety) Changed Emsam 6 mg/24 hr Patch 24 Hour 6 mg TRANSDERMAL BEDTIME Qty: 30 0RF Discontinued lamotrigine 200 mg tablet 200 mg PO DAILY Discharge Orders: Discharge Order (Routine); Ordered 01/28/25 Ordered By: Shena Da Silva Diet: Advance to usual diet Activity on Discharge: As tolerated Stand Alone Forms: Patient Portal Discharge page, Community Support Print Language: Chinese Care Plan Goals: Maintain mood and safe behaviors Take medications as prescribed Practice coping skills Continue with outpatient providers and reach out to them as needed Health Concerns: Mood stability and behaviors Plan of Treatment: Follow up with your PCP, psychiatric provider and other outpatient providers regarding above concerns Take medications as prescribed Follow up for outpatient ECT as planned Assessment: Risk assessment at time of discharge:? Patient was interviewed prior to discharge and found to be fully oriented and without any SI or HI. Patient has improved insight and judgment and wants to continue treatment. Patient is not in imminent risk of harm to self or others and has a safety plan that includes presenting to the closest ER or calling 911 if feeling unsafe.? Patient has been observed closely by nursing and unit staff throughout admission; patient has not engaged in any behaviors that suggest dangerousness to self or others and has demonstrated appropriate behaviors and impulse control
--- NOTE | 2025-01-28 10:56 | HO.ANESPROP2 ---
[facility] Active Problems Active Problems: All Active Problems (Updated 01/19/25 @ 17:14 by YONI Roberts) Depression (Acute) Chronic fatigue (Acute) Low testosterone in male (Acute) Hypogonadism in male (Acute) Sleep apnea in adult (Acute) Attention and concentration deficit (Acute) MDD (major depressive disorder), recurrent severe, without psychosis (Acute) SHALINI (generalized anxiety disorder) (Acute) Major depressive disorder, recurrent, moderate (Acute) Past Medical History Medical History Acute recurrent streptococcal tonsillitis Atypical chest pain Chronic hoarseness Restless legs Allergic rhinitis GERD (gastroesophageal reflux disease) Sleep apnea Family History Family history of problems with anesthesia: No Surgical History History of Problems with Anesthesia: No Social History Social History Household Members: Spouse and Other Household Members Other:: one stepson Housing: House Do you presently have visiting nurse or other home services: No Comment: DC TBD Patient Tobacco Use Status: Former Tobacco user Tobacco use type: Cigarette Smoked in Last 30 Days: No e-Cigarette/Vaping Use: Former Use Patient Interested in Nicotine Replacement: No Use of substances other than those prescribed or required for medical reasons: No Currently Displaying Signs/Symptoms of Drug Intoxication Withdrawal: No Have you been hit, kicked, punched, or otherwise hurt by someone within the past year? If so, by whom?: No Do you feel safe in your current relationship?: Yes Is there a partner from a previous relationship who is making you feel unsafe now?: No Are you made to feel afraid or neglected: No Advance Directives: No Advance Directives Information Provided: No Do you have thoughts of harming others: None Do you have a plan to hurt others: No Plan Recently lost weight without trying: No Nutrition Risks: No Nutritional Risk Poor oral hygiene: No service: No Sexual orientation: Straight/Heterosexual Meds Allergies Allergy/AdvReac Type Severity Reaction Status Date / Time No Known Allergies (No Known Allergy Verified 01/19/25 14:21 Allergies*) Active Medications: Current Medications Acetaminophen (Acetaminophen 325 Mg Tablet) 650 mg PO Q6H PRN PRN Reason: Headache/Pain, Scale 1-10 Last Admin: 01/25/25 02:28 Dose: 650 mg Al Hydroxide/Mg Hydroxide (Magnesium Hydrox/Alum Hydrox 30 Ml Oral.Susp) 30 ml PO Q6H PRN PRN Reason: Heartburn/Nausea Alprazolam (Alprazolam 0.5 Mg Tablet) 1 mg PO TID PRN PRN Reason: severe anxiety Last Admin: 01/27/25 19:23 Dose: 1 mg Baclofen (Baclofen 10 Mg Tablet) 10 mg PO TID PRN PRN Reason: muscle aches Hydroxyzine HCl (Hydroxyzine Hcl 25 Mg Tablet) 25 mg PO Q6H PRN PRN Reason: mild anxiety Last Admin: 01/21/25 05:20 Dose: 25 mg Ibuprofen (Ibuprofen 600 Mg Tablet) 600 mg PO Q8H PRN PRN Reason: leg pain Last Admin: 01/26/25 12:00 Dose: 600 mg Lamotrigine (Lamotrigine 100 Mg Tablet) 150 mg PO MoWeFrSa@0900 FLAVIO Last Admin: 01/26/25 09:40 Dose: 150 mg Magnesium Hydroxide (Milk Of Magnesia 30 Ml Oral.Susp) 30 ml PO DAILY PRN PRN Reason: Constipation Naloxone HCl (Naloxone Hcl 0.4 Mg/Ml Vial) 0.04 mg IVPUSH Q5M PRN PRN Reason: Excessive sedation or RR < 8 Sodium Chloride (Sodium Chloride 0.65 % Nasal 44 Ml Sprbtl) 1 spray NOSTRIL-B Q1H PRN PRN Reason: dry nares Home Medications ?Medication ?Instructions ?Recorded ?Confirmed ?Last Taken ?Type alprazolam 1 mg tablet 1 mg PO TID PRN anxiety 12/22/24 01/19/25 Unknown History Exam Height,Weight and Vital Signs: Height 6 ft 3 in Weight 101.4 kg Last Vital Signs Temp 97.6 F 01/28/25 08:00 Pulse 65 01/28/25 08:00 Resp 16 01/28/25 08:00 BP 124/66 01/28/25 08:00 Pulse Ox 97 01/28/25 08:00 O2 Del Method Room Air 01/28/25 08:00 O2 Flow Rate 2 01/26/25 08:30 Pertinent Lab Results Pertinent Lab Results: Laboratory Tests 01/19/25 01/19/25 01/21/25 14:56 15:03 08:46 WBC 6.6 RBC 5.19 Hgb 15.6 Hct 44.6 MCV 85.9 MCH 30.1 MCHC 35.0 RDW 12.4 Plt Count 191 MPV 9.5 Immature Gran % (Auto) 0.5 H Neut % (Auto) 56.4 Lymph % (Auto) 35.3 [place] % (Auto) 6.2 Eos % (Auto) 1.1 Baso % (Auto) 0.5 Lymph # (Auto) 2.3 [place] # (Auto) 0.4 Eos # (Auto) 0.1 Baso # (Auto) 0.0 Abs Immat Gran (auto) 0.03 Absolute Neuts (auto) 3.7 Absolute Nucleated RBC 0.000 Nucleated RBC % (auto) 0.0 Sodium 142 142 Potassium 3.8 3.8 Chloride 108 109 H Carbon Dioxide 26 28 Anion Gap 12 9 L BUN 16 13 Creatinine 1.21 1.13 Estim Creat Clear Calc 66.3 88.2 Estimated GFR > 60 > 60 Random Glucose 127 H 103 Estimat Average Glucose 108 Hemoglobin A1c % 5.4 Calcium 9.1 9.2 Total Bilirubin 0.5 1.0 AST 30 26 ALT 33 29 Alkaline Phosphatase 45 46 Total Protein 7.3 7.4 Albumin 4.5 4.6 Triglycerides 96 Cholesterol 201 H LDL Cholesterol, Calc 139 H HDL Cholesterol 43 TSH 1.01 Urine Color Yellow Urine Appearance Clear Urine pH 6.5 Ur Specific [place] 1.010 Urine Protein Negative Urine Glucose (UA) Negative Urine Ketones Negative Urine Blood Negative Urine Nitrite Negative Ur Leukocyte Esterase Negative Urine Opiates Screen Not Detected Ur Buprenorphine Scrn Not Detected Ur Oxycodone Screen Not Detected Urine Methadone Screen Not Detected Urine Fentanyl Screen Not Detected Ur Barbiturates Screen Not Detected Ur Phencyclidine Scrn Not Detected Ur Amphetamines Screen Not Detected U Benzodiazepines Scrn POSITIVE H Urine Cocaine Screen Not Detected U Marijuana (THC) Screen Not Detected Ethyl Alcohol < 10 Airway Mallampati Class: III TM Dist: >3cm Neck ROM: Full Loose/Missing/Broken Teeth: No Heart: RRR Lungs: CTA Assessment and Plan Assessment Anesthesia Assessment: Anesthesia Plan Discussed and Chart Reviewed Final Anesthetic Review Family History of Problems with Anesthesia: No History of Problems with Anesthesia: No NPO: Yes ASA Class: III Final Preanesthetic Review: Meds/Allgs Chart Reviewed, Consent Obtained/Reviewed and Anes Risks/Benef Reviewed Patient Risk: Intermediate Procedure Risk: Intermediate Anesthetic Plan Anesthetic Plan: GA Disposition: Standard PACU
[2025-01-28] MEDS: Lactated Ringers 1,000 ML 50 ML IVCONT (11:18)
--- NOTE | 2025-01-28 11:28 | MHC.SHP ---
Pre-Procedural Eval Section A - 24 Hr Update-Section A only Date of Service: 01/28/25 The patient is an INPATIENT: Yes Changes since office visit: Yes Patient answered all questions; No Cold of Flu in the past 2 weeks, No New Medical Problems and No Changes in Medication The patient has been examined within 24 hours of the surgical procedure. The History & Physical has been completed within 30 days and I have reviewed it.: Yes Section B - Complete if H&P > 30 days Chief Complaint: SI Allergies: Allergies Allergy/AdvReac Type Severity Reaction Status Date / Time No Known Allergies (No Known Allergy Verified 01/19/25 14:21 Allergies*) Plan I have reviewed the history and physical and performed a pertinent physical examination on my patient. No changes have occurred unless specified. Time Spent With Patient Time: Total time managing care of this patient today ____ minutes.
--- NOTE | 2025-01-28 12:14 | HO.ECTPROC ---
ECT Procedure Note Diagnosis/Treatment Date of Service: 01/28/25 Diagnosis: Major Depressive Disorder Previous ECT Date: 01/26/25 Current Treatment Number: 3 Treatment: Series Interval Clinical Notes: Patient still complains of some muscle pain no significant change in mood. States he can be safe if discharged will continue in outpatient treatment. Patient treated right unilateral Lamictal held day prior to treatment. Patient will continue with Dr. Cardozo as an outpatient PATIENT HAS HISTORY OF SLEEP APNEA DOES BEST POSTOP WITH A NON-REBREATHER MASK POSTOPERATIVELY ANESTHESIA RECOMMENDATION IN ADDITION TO CONTINUING ROCURONIUM IS TO INCREASE SUCCINYLCHOLINE TO 120 MG Time: Total time managing care of this patient today _30___ minutes. ECT Settings Device: THYMATRON DGx Electrode Placement: Right Unilateral Program/Pulse Width: 0.50 Energy Percent: 100 Seizure Duration By EEG (in seconds): 37 Medications Administration General Anesthetic: Etomidate (14) Muscle Relaxant: Succinylcholine (80) and Rocuronium (5) Airway Management Airway Management: Bag Mask Ventilation (non rebreather) Treatment Recommendations Notes: consider oxycodone given gabino to dec muscle pain increase succinylcholine 120 mg next treatment If no improvement after 4 treatments would change to bifrontal Pt Tolerated Procedure w/o Issue: Yes
== END 2025-01-28 15:57 | disposition home or self-care (01) | DRG 751 ==
LOC: HO.ED 16:10 → HO.PM5 01-20 13:52
PROVIDERS: Physician Assistant; Psychiatry & Neurology Psychiatry; Admitting Provider Nurse Practitioner Family; Emergency Provider Emergency Medicine; PCP Internal Medicine; Visit Provider Psychiatry & Neurology Psychiatry
PROC: GZB4ZZZ Other Electroconvulsive Therapy (ICD-10-PCS; CPT 90870; principal; 2025-01-24 07:30)
DX: F33.1 Major depressive disorder, recurrent, moderate (principal); R45.851 Suicidal ideations; F41.1 Generalized anxiety disorder; F90.9 Attention-deficit hyperactivity disorder, unspecified type; G47.33 Obstructive sleep apnea (adult) (pediatric); Z87.891 Personal history of nicotine dependence; Z79.899 Other long term (current) drug therapy
CPT/HCPCS: 36415; 80053; 80061; 80307; 81003; 83036; 84443; 85025; 90870; 93005; 99285; J0330; J1596; J1805; J1885; J2704; J7120; S9485

== ENCOUNTER → 2025-01-19 19:36 | Outpatient (BNV) | payer OTHER, SELFPAY | PROVIDERS: Admitting Provider Nurse Practitioner Family; Emergency Provider Emergency Medicine; PCP Internal Medicine; Visit Provider Internal Medicine | DX: R00.1 Bradycardia, unspecified (principal) | CPT/HCPCS: 93010 ==

== ENCOUNTER → 2025-01-20 13:13 | Outpatient (BNV) | payer OTHER, SELFPAY | PROVIDERS: Admitting Provider Nurse Practitioner Family; Emergency Provider Emergency Medicine; PCP Internal Medicine; Visit Provider Psychiatry & Neurology Psychiatry | DX: F33.2 Major depressive disorder, recurrent severe without psychotic features (principal) | CPT/HCPCS: 90870 ==

== ENCOUNTER → 2025-01-20 13:13 | Outpatient (BNV) | payer OTHER, SELFPAY | PROVIDERS: Admitting Provider Nurse Practitioner Family; Emergency Provider Emergency Medicine; PCP Internal Medicine; Visit Provider Psychiatry & Neurology Psychiatry | DX: F33.2 Major depressive disorder, recurrent severe without psychotic features (principal); F41.1 Generalized anxiety disorder; R41.840 Attention and concentration deficit; G47.30 Sleep apnea, unspecified | CPT/HCPCS: 99222; 99231; 99232; 99238 ==

== ENCOUNTER → 2025-01-20 13:13 | Outpatient (BNV) | payer OTHER, SELFPAY | PROVIDERS: Admitting Provider Nurse Practitioner Family; Emergency Provider Emergency Medicine; PCP Internal Medicine; Visit Provider Nurse Practitioner Family | DX: F33.1 Major depressive disorder, recurrent, moderate (principal) | CPT/HCPCS: 99221 ==

== ENCOUNTER 2025-01-31 06:02 | Day surgery (SDC) | payer OTHER, SELFPAY ==
--- OUTSIDE RECORDS SUMMARY | 2025-01-31 06:04 | XMS_ITS | Data Portability ---
Author Organization [place] - [facility], Allergy Address [address] [address] Care Team Providers Care Electric Vehicle Electrician Name Role Phone PADMA CH Primary Care Provider [phone] Assessment Encounter Date Assessment Date Assessment LastModified by Organization Details LastModified Time 10/20/2024 10/20/2024 54-year-old male with allergic rhinitis and GERD presents for evaluation of the nose and oropharynx. He reports persistent burning tongue despite nystatin and terbinafine. Nasal congestion and post nasal drip are refractory to oral antihistamine, Nasacort, and ipratropium bromide. Examination demonstrates dry oral mucosa and erythematous posterior pharynx. White coating on tongue is consistent with dehydration, low suspicion for active oral candidiasis. Fiberoptic laryngoscopy demonstrates GERD changes without obvious mass or purulence in the pharynx. We discussed patient with likely benefit from allergy immunotherapy. He is scheduled with his outreach analyst, Dr. Contreras, next month and will inquire about immunotherapy. Recommend follow-up with his rubber compounder at [facility] to optimize GERD management as reflux is likely contributing to his throat irritation and burning tongue. Burning tongue can also be neurologic in etiology, and patient may benefit from talking to his primary care provider about a neurology referral. I spent extended time discussing diagnoses and treatment options with patient. He brought multiple laboratory results to review. Will coordinate adding allergy test results from 2022 to chart. [email or web address] Not available 10/20/2024 17:01:23 Plan of Treatment Reminders Order Date Submit Date Provider Last Modified By Organization Details Last Modified Time Details Appointments Establish ed 15 2024 11:30A M LEÓN MILES MD Not available Not available Not available Lab None recorded. Referral None recorded. Procedures None recorded. Surgeries None recorded. Imaging None recorded. Medication Orders None recorded. Patient TargetsNo targets recorded. Patient InstructionsNo instructions recorded. Reason for Referral None Reported. Results Created Date Observation Date Name Description Value Unit Range Abnormal Flag Note LastModifiedBy Organization Detail LastModifiedTime 08/25/19 25 10/16/2023 sleep study , diagn ostic (PROC ) No observ ation record ed. [email or web address] Not Available 08/04 14:08:19 08/25/19 25 01/24/2022 sleep study , diagn ostic (PROC ) No observ ation record ed. [email or web address] Not Available 08/04 14:09:49 Result Notes None recorded. Problems Name Problem SNOMED Code Status Onset Date Resolution Date Notes Provider Name and Address Organization Details Recorded Time Obstructi ve sleep apnea syndrome 72697906 Active 2018 Juana rodriguez [place] - [facility] 5 10:21:14 Sleep disorder 05683131 Active 2018 Juana rodriguez [place] [facility] 5 10:21:14 Anxiety 35461169 Active 2018 Juana rodriguez [place] - [facility] 5 10:21:14 Mild major depressio n 81067135 Active 2018 Juana rodriguez [place] [facility] 5 10:21:14 Atypical chest pain 139934737 Active 2021 Ju[place] rodriguez [place] - [facility] 5 10:21:14 Restless legs 57153496 Active 2021 [place] rodriguez [place] - [facility] 5 10:21:14 Fatigue 41204164 Active 2021 Juana rodriguez [place] - [facility] 5 10:21:14 Sleep apnea 84286297 Active 2021 Ju[place] rodriguez [place] - [facility] 5 10:21:14 Cardiovas cular stress test abnormal 520050756 Active 2021 Juaan Grover null, [place] - [facility] 5 10:21:14 Streptoco ccal sore throat 06306445 Active 2022 Juana Grover [place] - [facility] 5 10:21:14 Bronchiti s 08546368 Active 2022 Juana Puentesa null, [place] - [facility] 5 10:21:14 Acute bronchiti s 01715134 Active 2022 Juana Puentesa [place] - [facility] 5 10:21:14 Candidias is of mouth 28933696 Active 2022 Juana Grover [place] - [facility] 5 10:21:14 Cough 42234114 Active 2022 Juana Grover [place] - [facility] 5 10:21:14 Sore throat 548047406 Active 2022 Juana Puentesa [place] - [facility] 5 10:21:14 Chronic cough 98105804 Active 2022 Juana Grover null[place] - [facility] 5 10:21:14 Chronic hoarsenes s 37165695348 05 Active 2022 Juana Puentesa [place] - [facility] 5 10:21:14 Gastroeso phageal reflux disease without esophagit is 949804217 Active 2022 Gastro-es ophageal reflux disease without esophagit is; Note: Date Diagnosed : 11/26/2022 10:39 AM (K21.9) Not Available [facility] 4 03:03:56 Chronic rhinitis 05009718 Active 2022 Chronic rhinitis; Note: Date Diagnosed : 11/26/2022 10:39 AM (J31.0) Not Available [facility] 4 03:03:58 Stomatiti s 38625797 Active 2022 Candidal stomatiti s; Note: Date Diagnosed : 12/18/2022 5:03 PM (B37.0) Not Available [facility] 4 03:03:57 Glossodyn ia 65132109 Active 2022 Glossodyn ia; Note: Date Diagnosed : 01/21/2023 8:52 AM (K14.6) Not Available [facility] 4 03:03:58 Xerostomi a 37160227 Active 2022 Dry mouth, unspecifi ed; Note: Date Diagnosed : 01/21/2023 8:52 AM (R68.2) Not Available [facility] 4 03:03:59 Streptoco ccal infectiou s disease 82737722 Active 2023 Juana rodriguez [place] - [facility] 5 10:21:14 Recurrent acute streptoco ccal tonsillit is 04374340571 843455 Active 2023 Juana rodriguez [place] - [facility] 5 10:21:14 Chronic bronchiti s 73146007 Active 2023 Juana rodriguez, [place] - [facility] 5 10:21:14 Reduced libido 2049547 Active 2024 Juana rodriguez [place] - [facility] 5 10:21:14 Glossopyr osis 037900248 Active 2024 MARKELL BENNETT PA-C [address] [place] [address], [place], [address] , [facility] - [facility] 16:58:20 Allergic rhinitis 78397195 Active 2024 MARKELL BENNETT PA-C [address] [place] [address], [place], [address] , [facility] - [facility] 5 16:58:53 Problem Notes None recorded. Procedures Surgical History Date Name Laterality Status Provider Name and Address Organization Details Recorded Time 10/25/2024 FOL_DP cancelled LEÓN MILES MD [address] [place] [address], [place], [phone], [place] - [facility] 10/19/2024 14:30:08 10/20/2024 FOL_Reflux _JMS completed MARKELL BENNETT PA-C [address] [place] [address], [place], [phone], [facility] - [facility] 10/20/2024 12:55:31 Imaging Results None recorded. Procedure Notes None recorded. Medical Equipment None Reported. Allergies No known drug allergies Medications Name Sig Start Date Stop Date Status Note LastModified by Organization Details LastModified Time cyclobenz aprine 10 mg tablet 12/22 completed Not Available Not Available Not Available fluconazo le 100 mg tablet TAKE 2 TABLETS BY MOUTH ON DAY 1 OF TREATMEN T, THEN TAKE 1 TABLET BY MOUTH ON DAYS 2-14 OF TREATMEN T 10/13 completed Not Available Not Available Not Available lamotrigi ne 150 mg tablet TAKE 1 TABLET BY MOUTH EVERY DAY active Not Available Not Available No t Available pilocarpi ne 5 mg tablet TAKE ONE TABLET BY MOUTH TWICE A DAY active Not Available Not Available No t Available nystatin 100,000 unit/mL oral suspensio n TAKE 5 MLS BY MOUTH FOUR TIMES A DAY DIRECTED FOR 14 DAYS active Not Available Not Available No t Available prednison e 10 mg tablet TAKE FOUR TABLETS BY MOUTH EVERY DAY FOR 3 DAYS THEN, TAKE THREE TABLETS BY MOUTH EVERY DAY FOR 3 DAYS THEN, TAKE TWO TABLETS BY MOUTH EVERY 10/13 completed Not Available Not Available Not Available lamotrigi ne 200 mg tablet TAKE 1 TABLET BY MOUTH EVERY DAY active Not Available Not Available No t Available ropinirol e 1 mg tablet TAKE 1 TABLET BY MOUTH EVERY DAY FOR 30 DAYS NEEDS APPT FOR FURTHER REFILLS. CALL OFFICE 2021 active Not Available Not Available Not Avai lable dextroamp hetamine sulfate ER 15 mg capsule,e xtended release TAKE ONE CAPSULE BY MOUTH TWICE A DAY - DNFT 06/30 completed Not Available Not Available Not Available trazodone 50 mg tablet TAKE 1 - 3 TABLETS BY MOUTH AT NIGHT NEEDED FOR INSOMNIA 07/24 completed Not Available Not Available Not Available sildenafi l 50 mg tablet TAKE 1 TABLET BY MOUTH EVERY DAY NEEDED 10/13 completed Not Available Not Available Not Available azithromy madison 250 mg tablet TAKE 2 TABLETS BY MOUTH TODAY, THEN TAKE 1 TABLET DAILY FOR 4 DAYS 07/25 completed Not Available Not Available Not Available alprazola m 1 mg tablet TAKE 1 TABLET BY MOUTH THREE TIMES A DAY NEEDED FOR ANXIETY active Not Available Not Available No t Available fluconazo le 150 mg tablet TAKE ONE TABLET BY MOUTH EVERY DAY DIRECTED FOR 7 DAYS 10/13 completed Not Available Not Available Not Available famotidin e 40 mg tablet TAKE TWO TABLETS BY MOUTH EVERY DAY AT BEDTIME active Not Available Not Available No t Available dextroamp hetamine- amphetami ne 10 mg tablet 10/13 completed Medicati on ID: [id number] rand Name: dextroam phetamin e-amphet amine Se nd Method: E-Prescr ibed Sub s Allowed: subs OK Medic ationGen ericName : dextroam phetamin e-amphet amine Me dication ID: [id number] B rand Name: dextroam phetamin e-amphet amine Se nd Method: E-Prescr ibed Sub s Allowed: subs OK Medic ationGen ericName : dextroam phetamin e-amphet amine Not Available Not Available Not Available clonazepa m 0.5 mg tablet 12/22 completed Not Available Not Available Not Available penicilli n V potassium 500 mg tablet TAKE 1 TABLET BY MOUTH 4 TIMES A DAY FOR 10 DAYS. 11/04 completed Not Available Not Available Not Available omeprazol e 40 mg capsule,d elayed release TAKE ONE CAPSULE BY MOUTH EVERY DAY BEFORE MEALS 07/24 completed Not Available Not Available Not Available lamotrigi ne 25 mg tablet PLEASE SEE ATTACHED FOR DETAILED DIRECTIO NS 06/22 completed Not Available Not Available Not Available terbinafi ne HCl 250 mg tablet TAKE ONE TABLET BY MOUTH EVERY DAY FOR 42 DAYS. active Not Available Not Available No t Available alprazola m 0.5 mg tablet TAKE 1 TABLET BY MOUTH THREE TIMES A DAY active Not Available Not Available No t Available modafinil 200 mg tablet TAKE 1 TABLET BY MOUTH TWICE A DAY 06/22 completed Not Available Not Available Not Available methocarb michael 750 mg tablet Take 1 tablet 3 times a day by oral route as needed for 15 days. 03/19 completed Not Available Not Available Not Available levothyro xine 50 mcg tablet TAKE 1 TABLET BY MOUTH EVERY DAY active Not Available Not Available No t Available trazodone 150 mg tablet TAKE 1 TABLET BY MOUTH EVERY NIGHT AT BEDTIME NEEDED FOR INSOMNIA active Not Available Not Available No t Available dextroamp hetamine- amphetami ne 20 mg tablet TAKE 1 TABLET BY MOUTH THREE TIMES A DAY active Not Available Not Available No t Available zafirluka st 20 mg tablet TAKE ONE TABLET BY MOUTH TWICE A DAY active Not Available Not Available No t Available gabapenti n 300 mg capsule 11/09 completed Not Available Not Available Not Available omeprazol e 20 mg capsule,d elayed release TAKE ONE CAPSULE BY MOUTH EVERY DAY BEFORE BREAKFAS T active Not Available Not Available No t Available diclofena c sodium 75 mg tablet,de layed release Take 1 tablet twice a day by oral route for 15 days. 03/19 completed Not Available Not Available Not Available monteluka st 10 mg tablet 10/13 completed Medicati on ID: [id number] B rand Name: monteluk ast Send Method: E-Prescr ibed Sub s Allowed: subs OK Medic ationGen ericName : monteluk ast Medi cation ID: [id number] B rand Name: monteluk ast Send Method: E-Prescr ibed Sub s Allowed: subs OK Medic ationGen ericName : monteluk ast Not Available Not Available Not Available codeine 10 mg-guaife nesin 100 mg/5 mL oral liquid TAKE 10ML BY MOUTH EVERY 4 HOURS 11/15 completed Not Available Not Available Not Available diclofena c sodium 50 mg tablet,de layed release TAKE 1 TABLET BY MOUTH TWICE A DAY 02/27 completed Not Available Not Available Not Available levofloxa madison 500 mg tablet Take 1 tablet every 24 hours by oral route for 10 days. 07/28 completed Not Available Not Available Not Available levofloxa madison 750 mg tablet Take 1 tablet every day by oral route for 7 days. 07/25 completed Not Available Not Available Not Available albuterol sulfate HFA 90 mcg/actua tion aerosol inhaler INHALE TWO PUFFS BY MOUTH EVERY 4 HOURS active Not Available Not Available No t Available ipratropi um bromide 42 mcg (0.06 %) nasal spray INSTILL 1-2 SPRAYS IN EACH NOSTRIL 3 TIMES A DAY NEEDED active Not Available Not Available No t Available cefdinir 300 mg capsule TAKE ONE CAPSULE BY MOUTH EVERY 12 HOURS FOR 10 DAYS 10/13 completed Not Available Not Available Not Available cholecalc iferol (vitamin D3) 125 mcg (5,000 unit) capsule TAKE 1 CAPSULE BY MOUTH EVERY DAY active Not Available Not Available No t Available doxycycli ne hyclate 100 mg tablet TAKE 1 TABLET BY MOUTH TWICE A DAY 07/25 completed Not Available Not Available Not Available lamotrigi ne 100 mg tablet TAKE 1 TABLET BY MOUTH EVERY DAY 06/22 completed Not Available Not Available Not Available amoxicill in 875 mg-potass ium clavulana te 125 mg tablet TAKE ONE TABLET BY MOUTH EVERY 12 HOURS FOR 10 DAYS 10/13 completed Not Available Not Available Not Available testoster one 1 % (50 mg/5 gram) transderm al gel packet APPLY 1 PACKET TO THE SKIN EVERYDAY 10/20 completed Not Available Not Available Not Available modafinil 100 mg tablet TAKE ONE TABLET BY MOUTH EVERY MORNING 06/22 completed Not Available Not Available Not Available neomycin- polymyxin -hydrocor t 3.5 mg-10,000 unit/mL-1 % ear drops,kathryn p INSTILL 4 DROPS INTO THE AFFECTED EAR S) 3 TIMES A DAY active Not Available Not Available No t Available aripipraz ole 5 mg tablet TAKE 1& 1/2 TABLET BY MOUTH EVERY DAY 11/16 completed Not Available Not Available Not Available duloxetin e 20 mg capsule,d elayed release TAKE ONE CAPSULE BY MOUTH EVERY DAY IN THE MORNING 07/24 completed Not Available Not Available Not Available duloxetin e 30 mg capsule,d elayed release TAKE 1 CAPSULE BY MOUTH EVERY DAY active Not Available Not Available No t Available duloxetin e 60 mg capsule,d elayed release TAKE 1 CAPSULE BY MOUTH EVERY DAY IN THE MORNING 06/22 completed Not Available Not Available Not Available aripipraz ole 2 mg tablet TAKE ONE TABLET BY MOUTH EVERY MORNING 11/16 completed Not Available Not Available Not Available omeprazol e 20 mg tablet,de layed release Take 1 tablet by mouth 2023 active Medicati on ID: [id number] D uration Value: 30 Brand Name: omeprazo le Send Method: E-Prescr ibed Sub s Allowed: subs OK Speci al Instruct ion: Take 1 tablet by mouth every day before breakfas t Medica tionGene ricName: emma ray Not Available Not Available Not Available cholecalc iferol (vitamin D3) 125 mcg (5,000 unit) tablet TAKE ONE TABLET BY MOUTH EVERY DAY active Not Available Not Available No t Available lurasidon e 40 mg tablet TAKE 1 TABLET BY MOUTH EVERY DAY IN THE EVENING WITH FOOD 06/22 completed Not Available Not Available Not Available lurasidon e 20 mg tablet TAKE 1 TABLET BY MOUTH EVERY EVENING WITH FOOD 06/22 completed Not Available Not Available Not Available testoster one 1.62 % (20.25 mg/1.25 gram) transderm al gel packet PLACE 2 PACKETS ONTO THE SKIN DAILY. 11/16 completed Not Available Not Available Not Available memantine 14 mg capsule sprinkle, extended release 24hr TAKE ONE CAPSULE BY MOUTH EVERY DAY 06/22 completed Not Available Not Available Not Available memantine 7 mg capsule sprinkle, extended release 24hr TAKE ONE CAPSULE BY MOUTH EVERY DAY AT BEDTIME 06/22 completed Not Available Not Available Not Available Trintelli x 10 mg tablet TAKE ONE TABLET BY MOUTH EVERY DAY 11/04 completed Not Available Not Available Not Available Trintelli x 20 mg tablet TAKE ONE TABLET BY MOUTH EVERY DAY 11/04 completed Not Available Not Available Not Available Vitals Date Recorded Body height Body mass index (BMI) Body weight Provider Name and Address Organization Details Last Updated DateTime 10/14/2023 190.5 cm 26.9 kg/m2 91876.[address] [facility] 10/14/2023 13:32:32 Date Recorded Body height Body mass index (BMI) Body weight Provider Name and Address Organization Details Last Updated DateTime 10/20/2024 190.5 cm 28.1 kg/m2 240338.[address] [facility] 10/20/2024 10:21:04 Social History None recorded. Functional Status None recorded. Mental Status None recorded. Family History Nothing Reported. Medical History Condition Response Allergies/Hayfever Y Nasal or Sinus Problems Y GERD/Reflux Y Past Encounters Encounter ID Performer Location Encounter Start Date Encounter Closed Date Diagnosis/Indication Diagnosis SNOMED-CT Code Diagnosis ICD10 Code Diagnosis IMO Codes Diagnosis Note [id number] JAMES TIRADO MD [facility] on [address] [place] [address] 10/14/2023 13:23:11 10/26/2023 22:54:59 Obstructive sleep apnea syndrome 49403620 G47.33 Patient has a history of obstructiv e breathing and had a sleep study a year and a half ago showing CPAP. Tried mandibular advancemen t device years ago which she may be willing to try again. He is already tried nasal valve devices. CT sinus from [facility] from 07/26 reviewed showing a few mucus retention cysts along the inferior left maxillary sinus, with otherwise clear paranasal sinuses. Patent sinonasal drainage pathways. Exam shows a slight septum deviated to the left. Xerostomia 26869076 R68. 2 He continues to have dry mouth. He was treated most recently with fluconazol e for thrush. He had recent endoscopy for which he is awaiting results.Fo llow-up for new or worsening symptoms. [id number] MARKELL BENNETT PA-C 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 8142 Anxiety 70804748 F41.9 Gastroesop hageal reflux disease without esophagitis 096291459 K21.9 Allergic rhinitis 324008 04 J30.9 7960710135 Health Concerns Section Related Observation LastModified by Organization Detai ls LastModified Time None Recorded Concern Status LastModified by Organization Details LastModified Time None Recorded Advance Directives Directive None Recorded Payers Insurance Date Sequence Insurance Name Policy Number Policy Kelly Covered Member ID Kelly Member ID Guarantor Name 07/28/2024 1 [employer] [place] [id number] Roland Mcfadden [id number] Roland Mcfadden 10/20/2024 1 [facility] [id number] Roland Mcfadden [id number] Roland Mcfadden 10/20/2024 1 [employer] [facility] [id number] Roland Coellomelissaugo [id number] Roland Lange Bogdan Notes Date Note Type Note Provider Name and Address Organization Details Recorded Time 10/14/2023 text/html 53-year-old male presents today for follow-up. He does have a history of esophagitis, no Slaughter's. He is on Pepcid and omeprazole now. He had endoscopy on September 30 and does follow-up next week after.Since his last visit he did see ID also who put him on Diflucan for 2 weeks and the thrush seem to have resolved. It seems to be worsening again with stress.He also has a history of sleep apnea. He had a sleep study 1.5 years ago which showed moderate sleep apnea, no CPAP. He is having sinus symptoms on Sudafed. He did have turbinate surgery about 20 years ago. He wonders if there is any nasal passage obstruction. He did try nasal valve device and Breathe Right strips which help when they stay on. PV: 53 yo M with persistent thrush. Saw ID, had cx showing justin. Has been on nystatin, fluconazole, terbinafine x 6 weeks. Seeing ID tomorrow.Stress worsens symptoms. Has dry mouth, burning tongue. Had strep in May, strep positive.Continues on omeprazole. JAMES TIRADO MD [address] [place] [address], [phone], [facility] - [facility] 10/26/2023 21:01:32 10/20/2024 text/html ROS as noted in the HPI 54yo male with allergic rhinitis and GERD presents for evaluation of the nose and oropharynx. He reports years of chronic nasal congestion, PND, burning tongue and recurrent thrush refractory to nystatin. He has associated dry mouth and white patches . He is currently taking oral terbinafine, prescribed by his primary care provider, without improvement. Reports allergy symptoms throughout the year, better in the winter. He reports his acid reflux is poorly controlled. He takes omeprazole and famotidine as prescribed by his rubber compounder . Upper endoscopy with GERD, otherwise unremarkable, results reviewed personally. He is followed by outreach analyst, Dr. Contreras. He reports sensitivity to birch, mold, and dog dander. He takes daily Nasacort and ipratropium bromide, without improvement. Also no improvement with claritin. Registered Nurse Renal did not recommend immunotherapy. LEÓN MILES MD [address] [place] [address], [place], [address], [facility] 10/20/2024 17:20:00
[2025-01-31 06:48] VITALS: BMI 27.5
--- NOTE | 2025-01-31 06:55 | HO.ANESPROP2 ---
HPI - Anesthesia Eval Consult details Narrative: for ECT PMFSH Active Problems Active Problems: All Active Problems (Updated 01/19/25 @ 17:14 by YONI Roberts) Depression (Acute) Chronic fatigue (Acute) Low testosterone in male (Acute) Hypogonadism in male (Acute) Sleep apnea in adult (Acute) Attention and concentration deficit (Acute) MDD (major depressive disorder), recurrent severe, without psychosis (Acute) SHALINI (generalized anxiety disorder) (Acute) Major depressive disorder, recurrent, moderate (Acute) Past Medical History Medical History Acute recurrent streptococcal tonsillitis Atypical chest pain Chronic hoarseness Restless legs Allergic rhinitis GERD (gastroesophageal reflux disease) Sleep apnea Family History Family history of problems with anesthesia: No Surgical History History of Problems with Anesthesia: No Social History Social History Household Members: Spouse and Other Household Members Other:: one stepson Housing: House Do you presently have visiting nurse or other home services: No Patient Tobacco Use Status: Former Tobacco user Tobacco use type: Cigarette e-Cigarette/Vaping Use: Former Use Advance Directives: No Advance Directives Information Provided: Yes service: No Sexual orientation: Straight/Heterosexual Meds Allergies Allergy/AdvReac Type Severity Reaction Status Date / Time No Known Allergies (No Known Allergy Verified 01/19/25 14:21 Allergies*) Home Medications ?Medication ?Instructions ?Recorded ?Confirmed ?Last Taken ?Type alprazolam 1 mg tablet 1 mg PO TID PRN anxiety 12/22/24 01/19/25 Unknown History Exam Height,Weight and Vital Signs: Height 6 ft 3 in Weight 99.79 kg Airway Mallampati Class: I TM Dist: >3cm Neck ROM: Full Loose/Missing/Broken Teeth: No Heart: ok Lungs: ok Assessment and Plan Assessment Anesthesia Assessment: Anesthesia Plan Discussed and Chart Reviewed Final Anesthetic Review Family History of Problems with Anesthesia: No History of Problems with Anesthesia: No NPO: Yes ASA Class: III Final Preanesthetic Review: No Changes in Pt Med Stat, Meds/Allgs Chart Reviewed, Consent Obtained/Reviewed and Anes Risks/Benef Reviewed Patient Risk: Intermediate Procedure Risk: Intermediate Anesthetic Plan Anesthetic Plan: GA and Agree w/ Assess. and Plan Disposition: Standard PACU
--- NOTE | 2025-01-31 08:03 | MHC.SHP ---
Pre-Procedural Eval Section A - 24 Hr Update-Section A only Date of Service: 01/31/25 The patient has been examined within 24 hours of the surgical procedure. The History & Physical has been completed within 30 days and I have reviewed it.: No Section B - Complete if H&P > 30 days Chief Complaint: depression Details of Present Illness: severe recurrent depression some st memory dysfx Allergies: Allergies Allergy/AdvReac Type Severity Reaction Status Date / Time No Known Allergies (No Known Allergy Verified 01/19/25 14:21 Allergies*) Review of Systems Sugical H&P ROS: Negative: Cardiovascular and Respiratory and Yes, Specify: Psychiatric (depressed flat) Exam Surgical H&P Exam: Normal: Heart and Normal: Lungs Plan Diagnosis/Plan: Unchanged I have reviewed the history and physical and performed a pertinent physical examination on my patient. No changes have occurred unless specified. Time Spent With Patient Time: Total time managing care of this patient today ____ minutes.
--- NOTE | 2025-01-31 08:05 | HO.ECTPROC ---
ECT Procedure Note Diagnosis/Treatment Date of Service: 01/31/25 Diagnosis: Major Depressive Disorder Previous ECT Date: 01/28/25 Current Treatment Number: 4 Treatment: Series Interval Clinical Notes: Patient has been discharge seen in psychiatric follow-up. Patient seen with his . Patient quite anxious ruminating worried about side effects concerned about how many treatments he may need complains of some short-term memory disturbance. Again reviewed risks benefits alternatives he denies active SI. He is on Emsam Time: Total time managing care of this patient today ____ minutes. ECT Settings Device: THYMATRON DGx Electrode Placement: Right Unilateral Program/Pulse Width: 0.50 Energy Percent: 100 Seizure Duration By EEG (in seconds): 37 Medications Administration General Anesthetic: Etomidate (14) Muscle Relaxant: Succinylcholine (80) and Rocuronium (5) Airway Management Airway Management: Bag Mask Ventilation (non rebreather) Treatment Recommendations Notes: consider oxycodone given gabino to dec muscle pain increase succinylcholine 120 mg next treatment If no improvement after 4 treatments would change to bifrontal Pt Tolerated Procedure w/o Issue: Yes
[2025-01-31 08:26] VITALS: BP 140/56; PULSE 92; RESP 13; TEMP 36.5; O2SAT 96
[2025-01-31 08:31] VITALS: BP 159/93; PULSE 81; RESP 17; O2SAT 96
[2025-01-31 08:36] VITALS: BP 145/91; PULSE 80; RESP 16; O2SAT 96
[2025-01-31 08:41] VITALS: BP 152/93; PULSE 67; RESP 16; O2SAT 95
[2025-01-31 08:56] VITALS: BP 155/97; PULSE 66; RESP 14; TEMP 36.6; O2SAT 95
== END 2025-01-31 09:33 | disposition home or self-care (01) ==
PROVIDERS: PCP Internal Medicine; Visit Provider Psychiatry & Neurology Psychiatry
PROC: (CPT 90870; principal; 2025-01-31 08:00)
DX: F33.1 Major depressive disorder, recurrent, moderate (principal); F41.1 Generalized anxiety disorder; R41.3 Other amnesia; R45.851 Suicidal ideations; R41.840 Attention and concentration deficit; R07.89 Other chest pain; J03.01 Acute recurrent streptococcal tonsillitis; R49.0 Dysphonia; J30.9 Allergic rhinitis, unspecified; G25.81 Restless legs syndrome; G47.33 Obstructive sleep apnea (adult) (pediatric); Z79.899 Other long term (current) drug therapy; Z87.891 Personal history of nicotine dependence
CPT/HCPCS: 90870; J0330

== ENCOUNTER → 2025-01-31 06:02 | Outpatient (BNV) | payer OTHER, SELFPAY | PROVIDERS: PCP Internal Medicine; Visit Provider Psychiatry & Neurology Psychiatry | DX: F33.2 Major depressive disorder, recurrent severe without psychotic features (principal) | CPT/HCPCS: 90870 ==

== ENCOUNTER 2025-02-02 05:52 | Day surgery (SDC) | payer OTHER, SELFPAY ==
--- OUTSIDE RECORDS SUMMARY | 2025-02-01 15:57 | XMS_ITS | Encounter Summary ---
Author Organization [facility] Address [address] [facility] [address] [place] [address] Phone Care Team Providers Care Customer Greeter Name Role Phone Gt, Sanjiv Lange Primary Care Provider [phone] Bigda, Sanjiv A DO Unavailable Bigda, Sanjiv A DO Primary Care Provider [phone] Encounter Details Date Type Department Care Team (Late st Contact Info) Description 12/23/2023 Procedure Pass [facility] Admitting Dept Virtual Department [address] [place] [address] Social History Tobacco Use Types Packs/Day Years [...] on filedocumented in this encounter Care Teams Customer Greeter Relationship Specialty Start Date End Date Sanjiv Del Real DO [email or web address] PCP - General Internal Medicine 04/20/17 10/06/24 Sanjiv Del Real DO [address] [place] [address] [email or web address] PCP - General Internal Medicine 10/07/24 Sanjiv Del Real DO [address] [place] [address] [email or web address] Insurance Assigned Provider 05/10/24 01/08/25 documented as of this encounter Additional Source Comments The information contained in this document represents components of the legal health record. It is not the complete legal health record.[facility]
--- OUTSIDE RECORDS SUMMARY | 2025-02-01 15:57 | XMS_ITS | Encounter Summary ---
Author Organization [facility] Address [address] [place] [address] [place] [address] Phone Care Team Providers Care Gourmet Coffee Attendant Name Role Phone Gt Sanjiv Lange DO Unavailable Anjelica Pritchard ELECTRICAL MAINTENANCE MAN Unavailable [phone] Roland Ibrahim MD Unavailable [phone] Leeann Montana MD Unavailable [phone] Padmaja Puentes ELECTRICAL MAINTENANCE MAN Unavailable Bigda, Sanjiv A DO Primary Care Provider [phone] Bigda, Sanjiv A DO Unavailable Bigda, Sanjiv A DO Unavailable Bigda, Sanjiv A DO Primary Care Provider [phone] Reason for Referral * MRI/CAT Scan - Closed Specialty Diagnoses / Procedures Referred By Contmelecio t Referred To Contact Radiology Diagnoses Benign neoplasm of bone and articular cartilage, unspecified Osteochondroma Procedures MRI Knee (Left) Allison Villanueva PA Phone: tel: fax: [address] Phone: tel:[phone] Referral ID Status Reason Start Date Expiration Date Visits Re quested Visits Authorized [id number] Closed 11/12/2019 11/11/2020 1 1 Encounter Details Date Type Department Care Team (Latest Contact Info) Description 11/12/2019 Transcribe Orders Virtual Department [address] [place] [address] Allison Villanueva PA [address] [place] [address] [place] [address] Benign neoplasm of bone and articular cartilage, [...] other significant ligamentous pathology apparent. POS - [id number] Narrative 11/27/2019 8:59 AM EDT TECHNIQUE: Exam [...] other significant ligamentous pathology apparent. POS - [id number] Allison VALLEJO IMG MR EXTREMITY Final Resu [...] documented as of this encounter Care Teams Gourmet Coffee Attendant Relationship Specialty Start Date End Date Sanjiv Del Real DO [address] [place] [address] PCP - General Internal Medicine 04/20/17 10/06/24 Sanjiv Del Real DO [address] [place] [address] PCP - General Internal Medicine 10/07/24 Sanjiv Del Real DO [address] [place] [address] Historical LMR Provider 02/22/17 05/12/21 Anjelica Pritchard NP [address] [place] [address] [email or web address] Historical LMR Provider 02/22/17 2 Roland Ibrahim MD 22 [facility], [address] [place] [address] Historical LMR Provider 02/22/17 05/12/21 Leeann Montana MD [address] [place] [address] [facility], [place] [address] Historical LMR Provider 02/22/17 Padmaja Puentes NP [address] [place] [address] Historical LMR Provider 02/22/17 2 Sanjiv Del Real DO [address] [place] [address] Insurance Assigned Provider 09/05/18 11/11/20 Sanjiv Del Real DO [address] [place] [address] Insurance Assigned Provider 05/10/24 01/08/25 documented as of this encounter Additional Source Comments The information contained in this document represents components of the legal health record. It is not the complete legal health record.[facility]
--- OUTSIDE RECORDS SUMMARY | 2025-02-01 15:57 | XMS_ITS | Encounter Summary ---
Author Organization [facility] Address [address] [place] [address] Phone Care Team Providers Care Laborer Brooder Farm Name Role Phone FabiolaSanjiv deal Primary Care Provider Bigda, Sanjiv Lange DO Unavailable Bigda, Sanjiv A DO Primary Care Provider [phone] Encounter Details Date Type Department Care Team (Late st Contact Info) Description 06/20/2023 Procedure Pass [facility], Ct Scan - [address] [address] Social History Tobacco Use Types Packs/Day Years [...] on filedocumented in this encounter Care Teams Laborer Brooder Farm Relationship Specialty Start Date End Date Sanjiv Del Real DO [email or web address] PCP - General Internal Medicine 04/20/17 10/06/24 Sanjiv Del Real DO [address] [place] [address] [email or web address] PCP - General Internal Medicine 10/07/24 Sanjiv Del Real DO [address] [place] [address] [email or web address] Insurance Assigned Provider 05/10/24 01/08/25 documented as of this encounter Additional Source Comments The information contained in this document represents components of the legal health record. It is not the complete legal health record.[facility]
--- OUTSIDE RECORDS SUMMARY | 2025-02-01 15:57 | XMS_ITS | Encounter Summary ---
Author Organization [facility] Address [address] [place] [address] [place] [address] Phone Care Team Providers Care Nurse Sane Name Role Phone Sanjiv Del Real DO Unavailable Anjelica Pritchard ON AIR DIRECTOR Unavailable [phone] Roland Ibrahim MD Unavailable [phone] Leeann Montana MD Unavailable [phone] Padmaja Puentes ON AIR DIRECTOR Unavailable Bigda, Sanjiv A DO Primary Care Provider [phone] Bigda, Sanjiv A DO Unavailable Bigda, Sanjiv A DO Unavailable Bigda, Sanjiv A DO Primary Care Provider [phone] Encounter Details Date Type Department Care Team (Latest Contact Info) Description 03/19/2019 Transcribe Orders Virtual Department [address] [place] [address] Anne Singh PA-C [address] [place] [address] Right hip pain (Primary Dx); Pain in [...] documented as of this encounter Care Teams Nurse Sane Relationship Specialty Start Date End Date Sanjiv Del Real DO [address] [place] [address] PCP - General Internal Medicine 04/20/17 10/06/24 Sanjiv Del Real DO [address] [place] [address] PCP - General Internal Medicine 10/07/24 Sanjiv Del Real DO [address] [place] [address] Historical LMR Provider 02/22/17 05/12/21 Anjelica Pritchard NP [address] [place] [address] [email or web address] Historical LMR Provider 02/22/17 2 Roland Ibrahim MD [address] [place] [address] Historical LMR Provider 02/22/17 05/12/21 Leeann Montana MD [address] [place] [address] [facility], [place] [address] Historical LMR Provider 02/22/17 Padmaja Puentes NP [address] [place] [address] Historical LMR Provider 02/22/17 2 Sanjiv Del Real DO [address] [place] [address] Insurance Assigned Provider 09/05/18 11/11/20 Sanjiv Del Real DO [address] [place] [address] [email or web address] Insurance Assigned Provider 05/10/24 01/08/25 documented as of this encounter Additional Source Comments The information contained in this document represents components of the legal health record. It is not the complete legal health record.[facility]
--- OUTSIDE RECORDS SUMMARY | 2025-02-01 15:57 | XMS_ITS | Encounter Summary ---
Author Organization [facility] Address [address] [place] [address] [place] [address] Phone Care Team Providers Care Needle Loom Tender Name Role Phone Sanjiv Del Real Primary Care Provider [phone] Bigda, Sanjiv A DO Unavailable Bigda, Sanjiv A DO Primary Care Provider [phone] Reason for Referral * MRI/CAT Scan - Closed Specialty Diagnoses / Procedures Referred By Contac t Referred To Contact Radiology Diagnoses Chronic cough Procedures CT Chest CHG DIAGNOSTIC COMPUTED TOMOGRAPHY THORAX W/O CNTRST Allison Villanueva PA [address] [facility] [place] [address] Phone: tel: fax: Referral ID Status Reason Start Date Expiration Date Visits Re quested Visits Authorized [id number] Closed 11/04/2022 01/03/2023 1 1 Encounter Details Date Type Department Care Team (Latest Contact Info) Description 11/04/2022 Transcribe Orders Virtual Department [address] [place] [address] Allison Villanueva PA [address] [facility] [place] [address] Chronic cough (Primary Dx) Social History Tobacco [...] documented as of this encounter Care Teams Needle Loom Tender Relationship Specialty Start Date End Date Sanjiv Del Real DO PCP - General Internal Medicine 04/20/17 10/06/24 Sanjiv Del Real DO [address] [place] [address] [email or web address] PCP - General Internal Medicine 10/07/24 Sanjiv Del Real DO [address] [place] [address] [email or web address] Insurance Assigned Provider 05/10/24 01/08/25 documented as of this encounter Additional Source Comments The information contained in this document represents components of the legal health record. It is not the complete legal health record.[facility]
--- OUTSIDE RECORDS SUMMARY | 2025-02-01 15:57 | XMS_ITS | Encounter Summary ---
Author Organization [facility] Address [address] [place] [address] Phone Care Team Providers Care Adult Crossing Guard Name Role Phone Gt, Sanjiv Lange DO Primary Care Provider [phone] Bigda, Sanjiv A DO Unavailable Bigda, Sanjiv A DO Primary Care Provider [phone] Encounter Details Date Type Department Care Team (Latest Contact Info) Description 10/16/2022 Transcribe Orders Virtual Department [address] [place] [address] Allison Villanueva PA 6 [facility] [place] [address] Bronchitis, not specified as acute or chronic [...] documented as of this encounter Care Teams Adult Crossing Guard Relationship Specialty Start Date End Date Sanjiv Del Real DO PCP - General Internal Medicine 04/20/17 10/06/24 Sanjiv Del Real DO [address] [place] [address] PCP - General Internal Medicine 10/07/24 Sanjiv Del Real DO [address] [place] [address] [email or web address] Insurance Assigned Provider 05/10/24 01/08/25 documented as of this encounter Additional Source Comments The information contained in this document represents components of the legal health record. It is not the complete legal health record.[facility]
--- OUTSIDE RECORDS SUMMARY | 2025-02-01 15:57 | XMS_ITS | Encounter Summary ---
Author Organization [facility] Address [facility] [employer] [facility] [address] [place] [address] Phone Care Team Providers Care Pelt Dropper Name Role Phone Sanjiv Del Real DO Unavailable Anjelica Pritchard WASTEWATER PLANT CIVIL ENGINEER Unavailable [phone] Roland Ibrahim MD Unavailable [phone] Leeann Montana MD Unavailable [phone] Padmaja Puentes WASTEWATER PLANT CIVIL ENGINEER Unavailable Bigda, Sanjiv A DO Primary Care Provider [phone] Bigda, Sanjiv A DO Unavailable Bigda, Sanjiv A DO Unavailable Bigda, Sanjiv A DO Primary Care Provider [phone] Encounter Details Date Type Department Care Team (Latest Contact Info) Description 03/19/2019 Transcribe Orders [facility] [address] [place] [address] Anne Singh PA-C [address] [place], [place] [id number] Low back pain, unspecified back pain laterality, [...] REACTIVE PROTEIN <0.3 0.0 - 4.0 mg/L [facility] Blood 03/19/2019 9:53 AM EST 03/19/2019 10:16 AM EST [facility] LAB BLOOD ORDERABLES Final R esult [address] [address] * Sedimentation rate (ESR) (03/19/2019 9:53 AM EST) Pathologist [facility] ESR 1 0 - 15 mm/h [facility] Blood 03/19/2019 9:53 AM EST 03/19/2019 10:16 AM EST [facility] LAB BLOOD ORDERABLES Final R esult Performing Organization Address City/[facility]/ZIP Co de Phone Number [address] [address] * Antinuclear antibody (SON) (03/19/2019 9:53 AM EST) SON SCREEN ON HEP 2 Negative Negative [facility] Blood 03/19/2019 9:53 AM EST 03/19/2019 10:16 AM EST [facility] LAB BLOOD ORDERABLES Final R esult Performing Organization Address City/[facility]/ZIP Co de Phone Number [address] [address] * Rheumatoid factor (03/19/2019 9:53 AM EST) RHEUMATOID FACTOR <10.0 0.0 - 14.0 IU/ml [facility] Blood 03/19/2019 9:53 AM EST 03/19/2019 10:16 AM EST Result [facility] LAB BLOOD ORDERABLES Final R esult Performing Organization Address [facility] de Phone Number [address] [address] * Lyme screen with reflex to Western blot, blood (03/19/2019 9:53 AM EST) Lyme AB IgG Negative Negative [facility] Lyme AB IgM Negative Negative [facility] Blood 03/19/2019 9:53 AM EST 03/19/2019 10:16 AM EST Result [facility] LAB BLOOD ORDERABLES [facility] Performing Organization Address [facility] de Phone Number [address] [address] * HLA-B27, BLOOD (03/19/2019 9:53 AM EST) HLA-B27 RESULT Positive Not Applicable [facility] DPT OF LAB MED AND PAT+ INTERPRETATION SEE NOTE [facility] DPT OF LAB MED AND PAT+ Comment: [...] [place] LAB BLOOD ORDERABLES Final R esult [facility] DPT OF LAB MED AND PAT+ [address] [place] [address] documented in this encounter Visit Diagnoses Diagnosis Low back pain, unspecified back pain laterality, unspecified chronicity, unspecified whether sciatica present- Primary documented in this encounter Additional Health Concerns Infection Onset Date Last Indicated Resolved Time CoV-Presumed 07/07/2020 07/07/2020 07/27/2020 1:24 AM EDT CoV-Risk 05/10/2023 05/10/2023 05/21/2023 1:22 AM EST documented as of this encounter Care Teams Pelt Dropper Relationship Specialty Start Date End Date Sanjiv Del Real DO [address] [place] [address] PCP - General Internal Medicine 04/20/17 10/06/24 Sanjiv Del Real DO [address] [place] [address] PCP - General Internal Medicine 10/07/24 Sanjiv Del Real DO [address] [place] [address] Historical LMR Provider 02/22/17 05/12/21 Anjelica Pritchard NP [address] [place] [address] [email or web address] Historical LMR Provider 02/22/17 2 Roland Ibrahim MD [address] [place] [address], [address] [place] [address] Historical LMR Provider 02/22/17 05/12/21 Leeann Montana MD [address] [place] [address] [facility], [place] [address] Historical LMR Provider 02/22/17 Padmaja Puentes NP [address] [place] [address] Historical LMR Provider 02/22/17 2 Sanjiv Del Real DO [address] [place] [address] Insurance Assigned Provider 09/05/18 11/11/20 Sanjiv Del Real DO [address] [place] [address] Insurance Assigned Provider 05/10/24 01/08/25 documented as of this encounter Additional Source Comments The information contained in this document represents components of the legal health record. It is not the complete legal health record.[facility]
--- OUTSIDE RECORDS SUMMARY | 2025-02-01 15:57 | XMS_ITS | Encounter Summary ---
Author Organization [facility] Address [address] [facility] [address] [place] [address] Phone Care Team Providers Care Professional Caster Name Role Phone Sanjiv Del Real DO Unavailable Anjelica Pritchard FACING GRINDER Unavailable [phone] Roland Ibrahim MD Unavailable [phone] Leeann Montana MD Unavailable [phone] Padmaja Puentes FACING GRINDER Unavailable Bigda, Sanjiv A DO Primary Care Provider [phone] Bigda, Sanjiv A DO Unavailable Bigda, Sanjiv A DO Unavailable Bigda, Sanjiv A DO Primary Care Provider [phone] Encounter Details Date Type Department Care Team (Late st Contact Info) Description 11/10/2019 Ancillary Orders Virtual Department [address] [place] [address] Allison Villanueva PA 6 [facility] [place] [address] [place] [address] Left knee pain, unspecified chronicity Social History [...] documented as of this encounter Care Teams Professional Caster Relationship Specialty Start Date End Date Sanjiv Del Real DO [address] [place] [address] PCP - General Internal Medicine 04/20/17 10/06/24 Sanjiv Del Real DO [address] [place] [address] PCP - General Internal Medicine 10/07/24 Sanjiv Del Real DO [address] [place] [address] Historical LMR Provider 02/22/17 05/12/21 Anjelica Pritchard NP [address] [place] [address] [email or web address] Historical LMR Provider 02/22/17 2 Roland Ibrahim MD [address] [place] [address] Historical LMR Provider 02/22/17 05/12/21 Leeann Montana MD [address] [place] [address] Orthoped[facility] Sports Medicine, [facility] [place] [address] [email or web address] Historical LMR Provider 02/22/17 Padmaja Puentes NP [address] [place] [address] Historical LMR Provider 02/22/17 2 Sanjiv Del Real DO [address] [place] [address] [email or web address] Insurance Assigned Provider 09/05/18 11/11/20 Sanjiv Del Real DO [address] [place] [address] [email or web address] Insurance Assigned Provider 05/10/24 01/08/25 documented as of this encounter Additional Source Comments The information contained in this document represents components of the legal health record. It is not the complete legal health record.[facility]
--- OUTSIDE RECORDS SUMMARY | 2025-02-01 15:57 | XMS_ITS | Encounter Summary ---
Author Organization [facility] Address [address] [place] [address] Phone Care Team Providers Care Photographic Restorer Name Role Phone Sanjiv Del Real DO Unavailable Anjelica Pritchard VBA PROGRAMMER Unavailable [phone] Roland Ibrahim MD Unavailable [phone] Leeann Montana MD Unavailable [phone] Padmaja Puentes VBA PROGRAMMER Unavailable Bigda, Sanjiv A DO Primary Care Provider [phone] Bigda, Sanjiv A DO Unavailable Bigda, Sanjiv A DO Unavailable Bigda, Sanjiv A DO Primary Care Provider [phone] Reason for Referral * Physical Therapy (Elective) - Closed Specialty Diagnoses / Procedures Referred By Adela monzon Referred To Contact Physical Therapy Diagnoses Encounter for rehabilitation Low Back Pain Procedures Evaluate & Treat Anne Singh PA-C Phone: tel: fax: [address] [address] Phone: tel: Referral ID Status Reason Start Date Expiration Date Visits Re quested Visits Authorized [id number] Closed 12/22/2018 05/04/2019 16 16 Encounter Details Date Type Department Care Team (Latest Contact Info) Description 12/23/2018 Transcribe Orders [facility] Rehabilitation Services [address] [place] [phone] Anne Singh, MEMO Hall. [address]ahid. [address] [place] [address] Encounter for rehabilitation (Primary Dx) Social History [...] Date/Time Associated Diagnosis Comments AMB REFERRAL TO [facility] PHYSICAL THERAPY Routine 01/21/2019 12:49 PM EDT Encounter for rehabilitation documented in this encounter Results * Ambulatory referral to [facility] Physical Therapy (01/21/2019 12:49 PM EDT) August Francisco [facility] AMB [facility] REFERRALS Final Resu lt documented in this encounter Visit Diagnoses Diagnosis Encounter for rehabilitation- Primary documented in this encounter Additional Health Concerns Infection Onset Date Last Indicated Resolved Time CoV-Presumed 07/07/2020 07/07/2020 07/27/2020 1:24 AM EDT CoV-Risk 05/10/2023 05/10/2023 05/21/2023 1:22 AM EST documented as of this encounter Care Teams Photographic Restorer Relationship Specialty Start Date End Date Sanjiv Del Real DO [address] [place] [address] [email or web address] PCP - General Internal Medicine 04/20/17 10/06/24 Sanjiv Del Real DO [address] [place] [address] PCP - General Internal Medicine 10/07/24 Sanjiv Del Real DO [address] [place] [address] Historical LMR Provider 02/22/17 05/12/21 Anjelica Pritchard, VBA PROGRAMMER [address] [place] [address] [email or web address] Historical LMR Provider 02/22/17 2 Roland Ibrahim MD [address] [place] [address], [address] [place] [address] Historical LMR Provider 02/22/17 05/12/21 Leeann Montana MD [address] [place] [address] [facility] Medicine, [place] [address] Historical LMR Provider 02/22/17 Padmaja Puentes NP [address] [place] [address] Historical LMR Provider 02/22/17 2 Sanjiv Del Real DO [address] [place] [address] Insurance Assigned Provider 09/05/18 11/11/20 Sanjiv Del Real DO [address] [place] [address] Insurance Assigned Provider 05/10/24 01/08/25 documented as of this encounter Additional Source Comments The information contained in this document represents components of the legal health record. It is not the complete legal health record.[facility]
--- OUTSIDE RECORDS SUMMARY | 2025-02-01 15:57 | XMS_ITS | Encounter Summary ---
Author Organization [facility] Address [address] [place] [address] Phone Care Team Providers Care Asparagus Cutter Name Role Phone Fabiolatoyin, Sanjiv Lange Primary Care Provider [phone] Bigda, Sanjiv A DO Unavailable Bigda, Sanjiv A DO Primary Care Provider [phone] Encounter Details Date Type Department Care Team (Late st Contact Info) Description 11/04/2022 Procedure Pass [facility], Ct Scan - [address] [address] Social History Tobacco Use Types Packs/Day Years [...] documented as of this encounter Care Teams Asparagus Cutter Relationship Specialty Start Date End Date Sanjiv Del Real DO PCP - General Internal Medicine 04/20/17 10/06/24 Sanjiv Del Real DO [address] [place] [address] [email or web address] PCP - General Internal Medicine 10/07/24 Sanjiv Del Real DO [address] [place] [address] Insurance Assigned Provider 05/10/24 01/08/25 documented as of this encounter Additional Source Comments The information contained in this document represents components of the legal health record. It is not the complete legal health record.[facility]
--- OUTSIDE RECORDS SUMMARY | 2025-02-01 15:57 | XMS_ITS | Encounter Summary ---
Author Organization [facility] Address [address] [facility] [address] [place] [address] Phone Care Team Providers Care Bake Room Worker Name Role Phone Gt, Sanjiv Lange Primary Care Provider [phone] Bigda, Sanjiv A DO Unavailable Bigda, Sanjiv A DO Primary Care Provider [phone] Encounter Details Date Type Department Care Team (Late st Contact Info) Description 12/23/2023 Procedure Pass [facility] Admitting Dept Virtual Department [address] [place] [address] Social History Tobacco Use Types Packs/Day Years [...] on filedocumented in this encounter Care Teams Bake Room Worker Relationship Specialty Start Date End Date Sanjiv Del Real DO PCP - General Internal Medicine 04/20/17 10/06/24 Sanjiv Del Real DO [address] [place] [address] PCP - General Internal Medicine 10/07/24 Sanjiv Del Real DO [address] [place] [address] Insurance Assigned Provider 05/10/24 01/08/25 documented as of this encounter Additional Source Comments The information contained in this document represents components of the legal health record. It is not the complete legal health record.[facility]
--- OUTSIDE RECORDS SUMMARY | 2025-02-01 15:57 | XMS_ITS | Clinical Summary ---
Author Organization [facility] Address [address] [facility] [address] [place] [address] Phone Care Team Providers Care Jigsawyer Name Role Phone Sanjiv Del Real Primary Care Provider [phone] Allergies No known active allergies Medications zinc [...] he mostly gets lab work done at [facility] so I am going to obtain [...] (08/21/2021 7:41 AM EDT) HDL 47 mg/dL [facility] Comment: Interpretation <40 mg/dL: Low HDL cholesterol (major risk factor for CHD) Greater than or equal to 60 mg/dL: High HDL cholesterol ( negative risk factor for CHD) HDL - cholesterol is affected by a number of factors, e.g. smoking, excerise, hormones, sex and age. CHOLESTEROL 182 0 - 240 mg/dL [facility] TRIGLYCERIDES 119 30 - 160 mg/dL [facility] LDL 111 50 - 129 mg/dL [facility] Comment: LDL levels in terms of risk for coronary heart disease: <100 mg/dL: Optimal 100-129 mg/dL: Near or above optimal 130-159 mg/dL: Borderline high 160-189 mg/dL: High >190 mg/dL: Very High CARDIAC RISK RATIO 3.9 3.4 - 5.0 [facility] Blood 08/21/2021 7:41 AM EDT 08/21/2021 7:47 AM EDT us Geremias Dan DO LAB BLOOD ORDERABLES Final Resul t [address] [address] from Last 3 Months or Most Recently Relevant to Health Maintenance Insurance [employer] * Guarantor: Roland Mcfadden Account Type Relation to Patient Date of Phone Billing Address Personal/Family Self [address] [employer] Care Teams Jigsawyer Relationship Specialty Start Date End Date Sanjiv Del Real DO [address] [place] [address] [email or web address] PCP - General Internal Medicine 10/07/24 Additional Source Comments The information contained in this document represents components of the legal health record. It is not the complete legal health record.[facility]
--- OUTSIDE RECORDS SUMMARY | 2025-02-01 15:57 | XMS_ITS | Encounter Summary ---
Author Organization [facility] Address [address] [employer] [facility] [address] [place] [address] Phone Care Team Providers Care Armored Car Driver Name Role Phone FabiolaSanjiv deal Primary Care Provider [phone] Bigda, Sanjiv Nazario DO Unavailable Bigda, Sanjiv A DO Primary Care Provider [phone] Reason for Referral * Consultation (Routine) - Closed Specialty Diagnoses / Procedures Referred By Contmelecio t Referred To Contact Pulmonary Disease Allison Villanueva PA [address] [place] [address] Phone: tel: fax: [facility] [address] [place] [address] Phone: tel: Referral ID Status Reason Start Date Expiration Date Visits Re quested Visits Authorized [id number] Closed 05/14/2023 05/14/2024 1 1 Encounter Details Date Type Department Care Team (Late st Contact Info) Description 05/14/2023 Transcribe Orders CD Pulmonary, Allergy and Critical Care Medicine [address] [place] [address] Allison Villanueva PA [address] [place] [address] Social History Tobacco Use Types Packs/Day Years [...] Associated Diagnoses Order Schedule Ambulatory referral to [facility] Pulmonology Outpatient Referral Routine Ordered: 05/14/2023 documented as of this encounter Visit Diagnoses Not on filedocumented in this encounter Additional Health Concerns Infection Onset Date Last Indicated Resolved Time CoV-Risk 05/10/2023 05/10/2023 05/21/2023 1:22 AM EST documented as of this encounter Care Teams Armored Car Driver Relationship Specialty Start Date End Date Sanjiv Del Real DO PCP - General Internal Medicine 04/20/17 10/06/24 Sanjiv Del Real DO [address] [place] [address] PCP - General Internal Medicine 10/07/24 Sanjiv Del Real DO [address] [place] [address] Insurance Assigned Provider 05/10/24 01/08/25 documented as of this encounter Additional Source Comments The information contained in this document represents components of the legal health record. It is not the complete legal health record.[facility]
--- OUTSIDE RECORDS SUMMARY | 2025-02-01 15:57 | XMS_ITS | Encounter Summary ---
Author Organization [facility] Address [address] [facility] [address] [place] [address] Phone Care Team Providers Care Supervisor Reinforced Steel Placing Name Role Phone Sanjiv Del Real DO Unavailable Anjelica Pritchard PRODUCTION FLOATER Unavailable [phone] Roland Ibrahim MD Unavailable [phone] Leeann Montana MD Unavailable [phone] Padmaja Puentes PRODUCTION FLOATER Unavailable Bigda, Sanjiv A DO Primary Care Provider [phone] Bigda, Sanjiv A DO Unavailable Bigda, Sanjiv A DO Unavailable Bigda, Sanjiv A DO Primary Care Provider [phone] Encounter Details Date Type Department Care Team (Late st Contact Info) Description 07/21/2020 Transcribe Orders Virtual Department [address] [place] [address] Allison Villanueva PA [address] [facility] [place] [address] [place] [address] Cough (Primary Dx) Social History Tobacco Use [...] documented as of this encounter Care Teams Supervisor Reinforced Steel Placing Relationship Specialty Start Date End Date Fabiolatoyin Sanjiv LangeDO [address] [place] [address] PCP - General Internal Medicine 04/20/17 10/06/24 Sanjiv Del Real DO [address] [place] [address] PCP - General Internal Medicine 10/07/24 Sanjiv Del Real DO [address] [place] [address] Historical LMR Provider 02/22/17 05/12/21 Anjelica Pritchard NP [address] [place] [address] [email or web address] Historical LMR Provider 02/22/17 2 Roland Ibrahim MD [address] [place] [address], [address] [place] [address] Historical LMR Provider 02/22/17 05/12/21 Leeann Montana MD [address] [place] [address] Orthopedics [facility] Sports Medicine, [place] [address] Historical LMR Provider 02/22/17 Padmaja Puentes NP [address] [place] [address] Historical LMR Provider 02/22/17 2 Sanjiv Del Real DO [address] [place] [address] [email or web address] Insurance Assigned Provider 09/05/18 11/11/20 Sanjiv Del Real DO [address] [place] [address] Insurance Assigned Provider 05/10/24 01/08/25 documented as of this encounter Additional Source Comments The information contained in this document represents components of the legal health record. It is not the complete legal health record.[facility]
--- OUTSIDE RECORDS SUMMARY | 2025-02-01 15:57 | XMS_ITS | Encounter Summary ---
Author Organization [facility] Address [address] [facility] [address] [place] [address] Phone Care Team Providers Care Alumina Plant Supervisor Name Role Phone Fabiolatoyin Sanjiv Nazario DO Unavailable Anjelica Pritchard [employer] T[employer]NER Unavailable [phone] Roland Ibrahim MD Unavailable [phone] Leeann Montana MD Unavailable [phone] Padmaja Puentes [employer] Unavailable Bigda, Sanjiv A DO Primary Care Provider [phone] Bigda, Sanjiv A DO Unavailable Bigda, Sanjiv A DO Unavailable Bigda, Sanjiv A DO Primary Care Provider [phone] Encounter Details Date Type Department Care Team (Late st Contact Info) Description 11/12/2019 Procedure Pass [facility], [address] [address] Social History Tobacco Use Types Packs/Day Years [...] documented as of this encounter Care Teams Alumina Plant Supervisor Relationship Specialty Start Date End Date Sanjiv Del Real DO [address] [place] [address] PCP - General Internal Medicine 04/20/17 10/06/24 Sanjiv Del Real DO [address] [place] [address] PCP - General Internal Medicine 10/07/24 Sanjiv Del Real DO [address] [place] [address] Historical LMR Provider 02/22/17 05/12/21 Anjelica Pritchard NP [address] [place] [address] [email or web address] Historical LMR Provider 02/22/17 2 Roland Ibrahim MD [address] [place] [address] Historical LMR Provider 02/22/17 05/12/21 Leeann Montana MD [address] [place] [address] Orthopedics [facility] Sports Medicine, [place] [address] Historical LMR Provider 02/22/17 Padmaja Puentes NP [address] [place] [address] Historical LMR Provider 02/22/17 2 Sanjiv Del Real DO [address] [place] [address] Insurance Assigned Provider 09/05/18 11/11/20 Sanjiv Del Real DO [address] [place] [address] Insurance Assigned Provider 05/10/24 01/08/25 documented as of this encounter Additional Source Comments The information contained in this document represents components of the legal health record. It is not the complete legal health record.[facility]
--- OUTSIDE RECORDS SUMMARY | 2025-02-01 15:57 | XMS_ITS | Encounter Summary ---
Author Organization [facility] Address [address] [facility] [address] [place] [address] Phone Care Team Providers Care Holistic Nutritionist Name Role Phone Gt, Sanjiv Lange Primary Care Provider [phone] Bigda, Sanjiv Nazario DO Unavailable Bigda, Sanjiv A DO Primary Care Provider [phone] Encounter Details Date Type Department Care Team (Late st Contact Info) Description 12/24/2023 Procedure Pass [facility]oscopy Admitting Dept Virtual Department [address] [place] [address] Social History Tobacco Use Types Packs/Day Years [...] on filedocumented in this encounter Care Teams Holistic Nutritionist Relationship Specialty Start Date End Date Sanjiv Del Real DO PCP - General Internal Medicine 04/20/17 10/06/24 Sanjiv Del Real DO [address] [place] [address] PCP - General Internal Medicine 10/07/24 Sanjiv Del Real DO [address] [place] [address] Insurance Assigned Provider 05/10/24 01/08/25 documented as of this encounter Additional Source Comments The information contained in this document represents components of the legal health record. It is not the complete legal health record.[facility]
[2025-02-02] VITALS (7 sets, daily range): BP systolic 135–159; BP diastolic 74–90; PULSE 60–76; RESP 14–16; TEMP 36.6–37.2; O2SAT 96–98; BMI 27.5
--- NOTE | 2025-02-02 06:46 | HO.ANESPROP2 ---
[facility] Active Problems Active Problems: All Active Problems Depression (Acute) Chronic fatigue (Acute) Low testosterone in male (Acute) Hypogonadism in male (Acute) Sleep apnea in adult (Acute) Attention and concentration deficit (Acute) MDD (major depressive disorder), recurrent severe, without psychosis (Acute) SHALINI (generalized anxiety disorder) (Acute) Major depressive disorder, recurrent, moderate (Acute) Past Medical History Medical History Acute recurrent streptococcal tonsillitis Atypical chest pain Chronic hoarseness Restless legs Allergic rhinitis GERD (gastroesophageal reflux disease) Sleep apnea Family History Family history of problems with anesthesia: No Surgical History History of Problems with Anesthesia: No Social History Social History Household Members: Spouse and Other Household Members Other:: one stepson Housing: House Do you presently have visiting nurse or other home services: No Patient Tobacco Use Status: Former Tobacco user Tobacco use type: Cigarette e-Cigarette/Vaping Use: Former Use Advance Directives: No Advance Directives Information Provided: Yes service: No Sexual orientation: Straight/Heterosexual Meds Allergies Allergy/AdvReac Type Severity Reaction Status Date / Time No Known Allergies (No Known Allergy Verified 01/19/25 14:21 Allergies*) Home Medications ?Medication ?Instructions ?Recorded ?Confirmed ?Last Taken ?Type alprazolam 1 mg tablet 1 mg PO TID PRN anxiety 12/22/24 01/19/25 Unknown History Exam Height,Weight and Vital Signs: Height 6 ft 3 in Weight 99.79 kg Last Vital Signs Temp 98.9 F 02/02/25 06:36 Pulse 64 02/02/25 06:36 Resp 16 02/02/25 06:36 BP 135/81 02/02/25 06:36 Pulse Ox 96 02/02/25 06:36 O2 Del Method Room Air 02/02/25 06:36 Airway Mallampati Class: II TM Dist: >3cm Neck ROM: Full Heart: rrr Lungs: cta Assessment and Plan Assessment Anesthesia Assessment: Anesthesia Plan Discussed and Chart Reviewed Final Anesthetic Review Family History of Problems with Anesthesia: No History of Problems with Anesthesia: No NPO: Yes ASA Class: III Final Preanesthetic Review: No Changes in Pt Med Stat, Meds/Allgs Chart Reviewed and Consent Obtained/Reviewed Patient Risk: Intermediate Procedure Risk: Intermediate Anesthetic Plan Anesthetic Plan: GA Disposition: Standard PACU
--- NOTE | 2025-02-02 07:28 | MHC.SHP ---
Pre-Procedural Eval Section A - 24 Hr Update-Section A only Date of Service: 02/02/25 The patient has been examined within 24 hours of the surgical procedure. The History & Physical has been completed within 30 days and I have reviewed it.: No Section B - Complete if H&P > 30 days Chief Complaint: depression Details of Present Illness: pt skeptical no c/o major s/e Relevant Family History (Specify if Yes): No Allergies: Allergies Allergy/AdvReac Type Severity Reaction Status Date / Time No Known Allergies (No Known Allergy Verified 01/19/25 14:21 Allergies*) Review of Systems Sugical H&P ROS: Negative: Cardiovascular and Respiratory and Yes, Specify: Psychiatric (depressed anxious) Exam Surgical H&P Exam: Normal: Heart, Normal: Lungs and Normal: Neurological Exam Comment: 135/81 Plan Diagnosis/Plan: Unchanged I have reviewed the history and physical and performed a pertinent physical examination on my patient. No changes have occurred unless specified. Time Spent With Patient Time: Total time managing care of this patient today ____ minutes.
--- NOTE | 2025-02-02 07:34 | HO.ECTPROC ---
ECT Procedure Note Diagnosis/Treatment Date of Service: 02/02/25 Diagnosis: Major Depressive Disorder Previous ECT Date: 01/26/25 Current Treatment Number: 5 Treatment: Series Interval Clinical Notes: Patient states he is feeling the same no change and mood. He is now on M Dwight. No gross cognitive changes less complaints of pain and cognition. Again reviewed potential treatment options. Patient did not want to consider bifrontal treatment which might give quicker relief Patient treated unilateral without difficulty Time: Total time managing care of this patient today __30__ minutes. ECT Settings Device: THYMATRON DGx Electrode Placement: Right Unilateral Program/Pulse Width: 0.50 Energy Percent: 100 Seizure Duration By EEG (in seconds): 37 Medications Administration General Anesthetic: Etomidate (14) Muscle Relaxant: Succinylcholine (80) and Rocuronium (5) Airway Management Airway Management: Bag Mask Ventilation (non rebreather) Treatment Recommendations No Changes Recommended: No change Notes: refused bi frontal Pt Tolerated Procedure w/o Issue: Yes
== END 2025-02-02 08:55 | disposition home or self-care (01) ==
PROVIDERS: PCP Internal Medicine; Visit Provider Psychiatry & Neurology Psychiatry
PROC: (CPT 90870; principal; 2025-02-02 07:30)
DX: F33.1 Major depressive disorder, recurrent, moderate (principal); F41.1 Generalized anxiety disorder; G47.33 Obstructive sleep apnea (adult) (pediatric)
CPT/HCPCS: 90870; J0330; J1885

== ENCOUNTER → 2025-02-02 05:52 | Outpatient (BNV) | payer OTHER, SELFPAY | PROVIDERS: PCP Internal Medicine; Visit Provider Psychiatry & Neurology Psychiatry | DX: F33.2 Major depressive disorder, recurrent severe without psychotic features (principal) | CPT/HCPCS: 90870 ==